=== PATIENT | female | born 1965 | race Caucasian/White ===

== ENCOUNTER → 2017-02-13 | Outpatient (CLI) | payer OTHER ==
[2017-02-13 07:02] LABS: EKG EKG PERFORMED
[2017-02-13 08:24] LABS: Anion Gap 14 mmol/L; Basophils # (A) 0.1 k/uL (0-0.2); Basophils % (A) 1 %; Blood Urea Nitrogen 14 mg/dL (7-17); CH 27.9; Carbon Dioxide 24 mmol/L (22-30); Chloride 102 mmol/L (98-107); Eosinophils # (A) 0.5 k/uL (0-0.7); Eosinophils % (A) 6 %; Glucose 171 mg/dL (74-99); HDW 2.36; Luc % (Auto) 1; Lymphocytes # (A) 2.1 k/uL (1.0-4.8); Lymphocytes % (A) 27 %; MCH 27.5 pg (25.0-35.0); MCHC 33.4 g/dL (31.0-37.0); MCV 82.4 fL (80.0-100.0); Mean Platelet Volume 6.2; Monocytes # (A) 0.3 k/uL (0-1.0); Monocytes % (A) 4 %; Neutrophils # (A) 4.7 k/uL (1.3-7.7); Neutrophils % (A) 61 %; Non-African American GFR(MDRD) >60 (>60 ml/min/1.73 sqM); Potassium 3.9 mmol/L (3.5-5.1); RBC 5.11 m/uL (3.80-5.40); RDW 13.9 % (11.5-15.5); Sodium 140 mmol/L (137-145); WBC 7.7 k/uL (3.8-10.6)
== END | disposition home or self-care (01) ==
LOC: LABPAT 06:34
PROVIDERS: ATTEND Obstetrics & Gynecology
DX: I10 Essential (primary) hypertension (principal); Z01.812 Encounter for preprocedural laboratory examination; E11.9 Type 2 diabetes mellitus without complications; D25.9 Leiomyoma of uterus, unspecified
CPT/HCPCS: 80051; 82565; 82947; 84520; 85025; 87086; 93005

== ENCOUNTER 2017-02-20 07:39 | Inpatient (IN) | payer OTHER ==
[2017-02-15 12:33] VITALS: BMI 36.1
--- NOTE | 2017-02-16 20:02 | HP ---
DATE OF ADMISSION: 02/20/2017 HISTORY: This is a 52-year-old 3 para 3 woman with an enlarged fibroid uterus. She was found to have an enlarged uterus on routine gynecologic examination. Pelvic ultrasound confirmed presence of an enlarged uterus measuring 16.6 x 12.2 x 9 cm with a 12 cm right fundal subserosal fibroid. She has had some mild irregular perimenopausal bleeding. Endometrial biopsy was performed and was negative. She is having symptoms of pelvic pressure and abdominal fullness and is requesting surgical management of her large fibroid uterus. ALLERGIES: NONE. MEDICATIONS: 1. Farxiga 10 mg daily. 2. Humalog daily. 3. Levemir 28 units daily. 4. Lipitor 40 mg daily. 5. Losartan/hydrochlorothiazide 50/12.5 mg daily. 6. Metformin 500 mg b.i.d. 7. Prilosec 20 mg daily. 8. Qvar 80 mcg inhaled. 9. Synthroid 125 mcg. 10. Vitamin D 5000 units. 11. Zoloft 150 mg. PAST MEDICAL HISTORY: 1. Asthma. 2. Type 2 diabetes. 3. Hypertension. 4. History of thyroid cancer in 1998. 5. History of left breast cancer in 1993. 6. History of right breast cancer in 1999. PAST SURGICAL HISTORY: 1. Appendectomy in 2011. 2. section x3 in 1985, 1987, 1988. 3. Total thyroidectomy in 1998. 4. Left breast lumpectomy, 1993. 5. Right breast mammotome biopsy in 1999. PAST EXCEL EXPERT HISTORY: She is 3 para 3 with a history of 3 term sections. She is perimenopausal. SOCIAL HISTORY: She is . Negative for tobacco, alcohol and drug use. FAMILY HISTORY: Significant for diabetes and heart disease. REVIEW OF SYSTEMS: Twelve-point review of systems negative except for that described in the HPI. PHYSICAL EXAM: VITAL SIGNS: Blood pressure 110/80, heart rate 73, weight 229 pounds, height 5 feet 5 inches. In general, this is a pleasant obese female in no apparent distress. HEENT exam is unremarkable, with no palpable thyromegaly or lymphadenopathy. LUNGS: Clear to auscultation bilaterally. HEART: Regular rate and rhythm with no detectable murmur. ABDOMEN: Obese. The uterus is palpable in the midline, approximately 18-week size. She has a midline vertical scar consistent with history of sections. The uterus is non-tender. On pelvic examination, she has normal female external genitalia without lesions or irritation. On bimanual examination, the uterus is irregular in shape and fills the pelvis. Approximately 16- to 18-week size. Adnexa are not palpable separate from this. Evaluation of the skin reveals no gross skin rashes, lesions or cyanosis. Neurologically she is grossly intact with no focal deficits. ASSESSMENT: This is a 52-year-old 3 para 3 woman with an enlarged fibroid uterus. She is scheduled to undergo total abdominal hysterectomy and bilateral oophorectomy. This procedure has been reviewed in detail with the patient in the office on more than one occasion. Risks of the procedure include but are not limited to bleeding, transfusion, infection, damage to bowel, bladder, ureters and/or other pelvic and abdominal structures. She understands this risks may be increased secondary to history of previous abdominal surgery as well as the enlarged size of the uterus. She also understands there may be risks associated with anesthesia, possible DVT, PE and/or . We will have medical management of her diabetes and high blood pressure while in the hospital. Consent was obtained. The patient was offered a second opinion, which was declined. She is scheduled for a total abdominal hysterectomy and bilateral salpingo-oophorectomy on 02/20/2017. JUJU
[~2017-02-20 07:39] MED LIST: DEXAMETHASONE SOD PHOSPHATE 10 MG/ML 1 ML VIAL IV ONE; HEPARIN SODIUM,PORCINE 5,000 UNIT/ML 1 ML VIAL SQ ONE; LACTATED RINGERS 1,000 ML IV SCH; MIDAZOLAM 2 MG/2 ML VIAL IV PRN; SCOPOLAMINE 1.5MG/72HR PATCH TRANSDERM ONE; ceFAZolin 2 GM in SODIUM CHLORIDE 0.9% 100 ML IVPB ONE
[2017-02-20 08:34] LABS: Glucose,Whole Blood 205 mg/dL (75-99)
[2017-02-20] MEDS ORDERED: LIDOCAINE 1% 20 ML VIAL (10MG/ML) FOR IV START INTRADERMA ONE (08:39)
[2017-02-20] MEDS: ONDANSETRON 4 MG/2 ML VIAL IVP ONE ×2 (08:41→11:55)
[2017-02-20] MEDS ORDERED: PHENYLEPHRINE-0.9% NACL SYG 1 MG/10 ML SYRINGE ONE (09:13)
[2017-02-20] MEDS ORDERED: HYDROmorphone (PF) 1 MG/ML ONE (09:13)
[2017-02-20] MEDS ORDERED: GLYCOPYRROLATE 0.2 MG/ML 2 ML VIAL ONE (09:13)
[2017-02-20] MEDS ORDERED: SUCCINYLCHOLINE CHLORIDE 100 MG/5 ML SYR IV ONE (09:13)
[2017-02-20] MEDS ORDERED: PROPOFOL 10 MG/ML 20 ML VIAL IV ONE (09:13)
[2017-02-20] MEDS ORDERED: fentaNYL (PF) 50 MCG/ML 2 ML AMP ONE (09:13)
[2017-02-20] MEDS ORDERED: ROCURONIUM BROMIDE 10 MG/ML 10 ML VIAL IV ONE (09:13)
[2017-02-20] MEDS ORDERED: MIDAZOLAM 2 MG/2 ML VIAL ONE (09:13)
[2017-02-20] MEDS ORDERED: LIDOCAINE 1% INJ 10MG/ML (20 ML MDV) ONE (09:13)
[2017-02-20] MEDS ORDERED: NEOSTIGMINE 1 MG/ML 10 ML VIAL ONE (09:13)
[2017-02-20] MEDS ORDERED: LACTATED RINGERS 1,000 ML IV ONE (10:22)
--- NOTE | 2017-02-20 11:17 | P.OP ---
Date of Procedure: 02/20/17 Preoperative Diagnosis: Enlarged fibroid uterus Postoperative Diagnosis: Same Procedure(s) Performed: Total abdominal hysterectomy and bilateral salpingo-oophorectomy Implants: Anesthesia: LOCA Surgeon: Sil Zaidi Water Trainer #1: Larissa Dial Estimated Blood Loss (ml): 400 IV fluids (ml): 1,600 Urine output (ml): 225 Pathology: other (Uterus, bilateral fallopian tubes and ovaries) Condition: stable Disposition: PACU Indications for Procedure: Enlarged fibroid uterus Operative Findings: Enlarged, approximately 16 weeks' size uterus with large posterior intramural fibroid. Normal-appearing bilateral fallopian tubes and ovaries. Scarring of bladder to the low uterine segment consistent with history of section Description of Procedure: After the patient was met in the preoperative holding area and she and her family's questions were answered, she seemed to the operating room her anesthetic was administered without incident. She was in positioned, prepped and draped in the dorsal supine positio. Gutierrez catheter was in place. A midline vertical skin incision was made following the pre-existing scar line. This was carried down to the underlying fascia with the Bovie electrocautery and sharply. The fascia was incised in the midline and extended inferiorly and superiorly. The rectus muscles were then bluntly and sharply dissected away in the midline. The peritoneum identified, tented up and entered sharply. The peritoneal incision was extended inferiorly and superiorly with excellent visualization the bladder. The upper abdomen was manually explored and no gross amount of palpable. The uterus was palpated and the above findings were noted. The self-retaining [place]den retractor was placed and the bowels were packed away with moist laparotomy sponges. The cornual pedicles were grasped and the uterus was elevated. The left round ligament was identified, elevated, clamped cut and suture ligated. The infundibulopelvic ligament was identified. A window was made in the peritoneum immediately proximal to the ovary. This was doubly clamped, cut and suture ligated. The anterior leaf of the broad ligament was entered and excised down to the level of the bladder. The scarring consistent with section was addressed sharply using the Metzenbaum scissors. Similarly the right round ligament was identified, tented up, clamped cut and suture ligated. The right anterior leaf of the broad ligament was also incised down to the level of the bladder flap which had previously been created. The scarring was addressed sharply and the bladder was advanced anteriorly bluntly. Similarly the right infundibular pelvic ligament was identified and a window was made immediately below this. The IP ligament was doubly clamped cut and suture ligated. The fundus of the uterus was then grasped with a double-tooth tenaculum and elevated out of the pelvis. The posterior leaves of the broad ligaments were excised and the uterine vasculature was skeletonized. Significant engorgement of the uterine vasculature was was noted on the left side in particular. Uterine vasculature was then clamped at a right angle bilaterally. These pedicles were then clamped on the cut and suture ligated. 0 Vicryl suture was utilized throughout the case unless otherwise indicated. The bladder was further advanced away from the anterior lower uterus. The cardinal ligaments were then clamped cut and suture ligated bilaterally down to the level of the uterosacral ligaments. The bulky nature of the uterus at this point was hindering visualization therefore the uterus was amputated at the low uterine segment. The cervical stump was grasped with [place] clamps and elevated. The base of the cervix was palpable. The bladder was carefully dissected away from the anterior portion of the cervix. The remaining cardinal ligament and uterosacral ligaments were clamped cut and suture ligated allowing for complete dilatation of the specimen at the apex of the vagina. This was removed. The vaginal cuff was then closed with 0 Vicryl suture in an interrupted and running fashion. The pelvis was then copiously suction irrigated. Hemostasis was noted along the vaginal cuff line. The round ligament and infundibulopelvic surgical sites were inspected and noted to be hemostatic. The self-retaining retractor was removed and all laparotomy sponges were removed from the abdomen. The omentum and bowel mesentery were inspected and noted to be hemostatic. The rectus muscles and peritoneal edges were inspected and noted to be hemostatic. The fascia was then closed in a running fashion with 0 PDS suture. The subcuticular tissue was inspected and reapproximated with Vicryl suture. The skin was then closed using krystina. All counts reported to me as correct by the operating room staff. Clear urine was noted at the completion of the procedure. The patient was awoken from anesthetic in good condition and transferred
[2017-02-20 11:58] LABS: Glucose,Whole Blood 227 mg/dL (75-99)
[2017-02-20] MEDS ORDERED: PROMETHAZINE INJ 25 MG/ML 1 ML VIAL IVPB ONE (12:02)
[2017-02-20] MEDS: HYDROmorphone 1 MG/ML 1 ML SYRINGE IVP PRN ×2 (12:07→12:31)
[2017-02-20] MEDS ORDERED: KETOROLAC 30 MG/ML 1 ML VIAL IVP ONE (12:18)
[2017-02-20] MEDS ORDERED: Acetaminophen-Codeine 300-30mg TAB PO PRN (12:21)
[2017-02-20] MEDS ORDERED: METOCLOPRAMIDE 5 MG/ML 2 ML VIAL IVP PRN (12:21)
[2017-02-20] MEDS ORDERED: ONDANSETRON 4 MG/2 ML VIAL IVP PRN (12:21)
[2017-02-20] MEDS ORDERED: IBUPROFEN 600 MG TAB PO PRN (12:21)
[2017-02-20] MEDS ORDERED: SIMETHICONE 80 MG CHEWABLE PO PRN (12:21)
[2017-02-20] MEDS ORDERED: diphenhydrAMINE 50 MG/ML 1 ML VIAL IVP PRN (12:21)
[2017-02-20] MEDS: INSULIN LISPRO (humaLOG) 300 UNIT/3 ML VIAL SQ SCH ×3 (13:33→21:30)
[2017-02-20] MEDS: LACTATED RINGERS 1,000 ML IV SCH ×2 (13:33→16:13)
[2017-02-20] MEDS: Acetaminophen-Codeine 300-30mg TAB PO PRN (14:56)
[2017-02-20] MEDS ORDERED: NALOXONE 0.4 MG/ML 1 ML VIAL IV PRN (15:57)
[2017-02-20] MEDS: HYDROmorphone PCA 5 MG/25 ML SYRINGE IV PRN ×2 (16:13→23:35)
[2017-02-20 17:03] LABS: Glucose,Whole Blood 185 mg/dL (75-99)
--- NOTE | 2017-02-20 18:06 | P.CONS ---
History of Present Illness - Reason for Consult Consult date: 02/20/17 management of DM - History of Present Illness This is a 52-year-old female with history of diabetes, hypertension, hypothyroidism was brought in to the hospital for a ALICIA/BSO. Patient is seen postop day 0. Patient had a large fibroid status post resection Patient today is seen at bedside. Appears to be still drowsy. Patient has a complex regimen of medications for diabetes control Patient's was at bedside and most of the history is obtained from. Patient apparently was doing well prior to the current admission Most of the history is obtained from chart review. Review of Systems All systems: negative (Noted in HPI) Past Medical History Past Medical History: Asthma, Cancer, Diabetes Mellitus, GERD/Reflux, Musculoskeletal Disorder, Thyroid Disorder Additional Past Medical History / Comment(s): ganglion cyst right foot that causes pain, hx. breast [id number] & 1997-surg. & radiation, thyroid cancer 1998 & 2012 History of Any Multi-Drug Resistant Organisms: None Reported Past Surgical History: Appendectomy, Breast Surgery, Hysterectomy Additional Past Surgical History / Comment(s): thyroidectomy & parathyroidectomy , bilateral breast lumpectomies, skin lesions removed, ALICIA/BSO Past Anesthesia/Blood Transfusion Reactions: Previous Problems w/ Anesthesia Additional Past Anesthesia/Blood Transfusion Reaction / Comm: slow to wake up Past Psychological History: Anxiety, Depression Smoking Status: Never smoker - Past Family History Mother Family Medical History: No Reported History Medications and Allergies Home Medications Medication Instructions Recorded Confirmed Type Acetaminophen [Tylenol Extra 500 mg PO BID 02/15/17 02/20/17 History Strength] Atorvastatin [Lipitor] 40 mg PO HS 02/15/17 02/20/17 History Calcium Carbonate [Calcium] 1,800 mg PO DAILY 02/15/17 02/20/17 History Cholecalciferol [Vitamin D3] 5,000 unit PO DAILY 02/15/17 02/20/17 History Cyanocobalamin (Vitamin B-12) 2,500 mcg PO DAILY 02/15/17 02/20/17 History [Vitamin B-12] Dapagliflozin Propanediol [Farxiga] 10 mg PO DAILY 02/15/17 02/20/17 History Ferrous Sulfate [Feosol] 325 mg PO DAILY 02/15/17 02/20/17 History INSULIN LISPRO (HumaLOG) [HumaLOG] 8 units SQ DAILY@1200,1730 07/05/17 07/10/17 History INSULIN LISPRO (HumaLOG) [HumaLOG] 10 units SQ -KT 02/15/17 02/20/17 History Insulin Detemir [Levemir] 28 unit SQ DAILY 02/15/17 02/20/17 History Multivit with Calcium,Iron,Min 1 tab PO DAILY 02/15/17 02/20/17 History [Women's Multivitamin] Omeprazole [PriLOSEC] 20 mg PO AC-BRKFST 02/15/17 02/20/17 History Sertraline HCl [Zoloft] 150 mg PO DAILY 02/15/17 02/20/17 History metFORMIN HCL [Glucophage] 500 mg PO BID 02/15/17 02/20/17 History Levothyroxine Sodium [Synthroid] 250 mcg PO DAILY 02/20/17 02/20/17 History Losartan/Hydrochlorothiazide 1 tab PO DAILY 02/20/17 02/20/17 History [Losartan-Hctz 50-12.5 mg Tab] Allergies Allergy/AdvReac Type Severity Reaction Status Date / Time No Known Allergies Allergy Verified 02/15/17 12:16 Physical Exam Vitals: Vital Signs Temp Pulse Pulse Resp BP BP Pulse Ox 02/20/17 16:39 98.1 F 83 16 137/70 94 L 02/20/17 15:39 80 145/75 94 L 02/20/17 14:39 74 138/80 93 L 02/20/17 14:09 70 133/73 93 L 02/20/17 13:39 68 130/71 95 02/20/17 13:23 71 125/69 96 02/20/17 13:08 73 118/71 96 02/20/17 12:53 97.6 F 65 16 111/63 95 02/20/17 12:20 62 16 126/68 96 02/20/17 12:05 63 16 137/71 97 02/20/17 11:50 62 16 142/70 97 02/20/17 11:41 64 16 147/73 96 02/20/17 11:24 97 F L 67 16 151/74 97 02/20/17 08:30 69 18 122/81 97 02/20/17 08:16 97.9 F 77 18 131/87 96 Intake and Output 02/20/17 02/20/17 02/20/17 06:59 14:59 22:59 Intake Total 2460 Output Total 950 Balance 1510 Intake: IV 2400 Oral 60 Output: Urine 550 Estimated Blood Loss 400 Other: Voiding Method Indwelling Catheter Weight 101.605 kg Patient Weight 02/21/17 06:59 Weight 101.605 kg Physical exam Gen. appearance oriented 3 in no distress Neck is supple no JVD Lungs good air entry clear to auscultation no rhonchi or wheezing Heart S1-S2 heard regular rate and rhythm no murmurs appreciated Abdomen surgical dressing noted appropriate tender to palpation Neurologically cranial nerves II-12 grossly intact no focal motor or sensory deficits noted Skin no abnormalities appreciated Results Labs: Abnormal Lab Results - Last 24 Hours (Table) 02/20/17 02/20/17 02/20/17 Range/Units 08:26 11:48 16:57 POC Glucose (mg/dL) 205 H 227 H 185 H (75-99) mg/dL Assessment and Plan Plan: #1 uterine fibroids status post surgical resection #2 diabetes mellitus type 2. #3 hypertension #4 dyslipidemia #5 hypothyroidism Plan Patient's antihypertensive medications will be restarted tomorrow Hold off on using farxiga, as it does cause osmotic diuresis. We'll decrease the dose of Levemir to 20 units till patient's oral intake is back to her baseline. Hold off on metformin as patient is postsurgical NovoLog sliding scale can be used to address additional episodes of hyper glycemia Thank you for the consultation we'll follow the patient along with you
[2017-02-20 21:16] LABS: Glucose,Whole Blood 159 mg/dL (75-99)
[2017-02-20] MEDS: KETOROLAC 30 MG/ML 1 ML VIAL IVP PRN (21:27)
[2017-02-20] MEDS: SENNOSIDES-DOCUSATE SODIUM 1 EACH TAB PO SCH (21:28)
[2017-02-20] MEDS: INSULIN DETEMIR 100 UNIT/ML 10 ML VIAL SQ SCH (21:29)
[2017-02-21] MEDS: LACTATED RINGERS 1,000 ML IV SCH ×2 (01:48→18:21)
[2017-02-21] MEDS: PANTOPRAZOLE 40 MG TABLET PO SCH (06:42)
[2017-02-21 06:52] LABS: Basophils % (A) 0 %; CH 27.2; CHCM 32.8; Eosinophils # (A) 0.1 k/uL (0-0.7); Eosinophils % (A) 2 %; HCT 37.3 % (34.0-46.0); HDW 2.24; HGB 12.5 gm/dL (11.4-16.0); Luc # (Auto) 0.14; Luc % (Auto) 2; Lymphocytes # (A) 1.8 k/uL (1.0-4.8); Lymphocytes % (A) 20 %; MCH 27.9 pg (25.0-35.0); MCHC 33.5 g/dL (31.0-37.0); MCV 83.2 fL (80.0-100.0); Mean Platelet Volume 6.2; Monocytes # (A) 0.5 k/uL (0-1.0); Monocytes % (A) 5 %; Neutrophils # (A) 6.4 k/uL (1.3-7.7); Neutrophils % (A) 71 %; RBC 4.48 m/uL (3.80-5.40); RDW 13.5 % (11.5-15.5); WBC 9.1 k/uL (3.8-10.6); WBC (Perox) 9.77
[2017-02-21] MEDS: LEVOTHYROXINE 112 MCG TAB PO SCH (07:03)
[2017-02-21] MEDS ORDERED: LEVOTHYROXINE 125 MCG TAB PO SCH (07:30)
[2017-02-21 07:52] LABS: Glucose,Whole Blood 142 mg/dL (75-99)
--- NOTE | 2017-02-21 08:12 | P.PN ---
Subjective Principal diagnosis: Fibroid uterus Pain very well-controlled throughout the night with DIRECTOR OF STRATEGIC SOURCING device. She is passing gas. She is requesting regular food. Has not yet ambulated. Objective - Vital Signs Vital signs: Vital Signs Temp 97.9 F 02/20/17 23:43 Pulse 71 02/20/17 23:43 Resp 16 02/20/17 23:43 BP 103/65 02/20/17 23:43 Pulse Ox 95 02/20/17 23:43 Intake & Output 02/20/17 02/21/17 02/21/17 18:59 06:59 18:59 Intake Total 2460 Output Total 950 500 Balance 1510 -500 Weight 101.605 kg Intake: IV 2400 Oral 60 Output: Urine 550 500 Estimated Blood Loss 400 Other: Voiding Method Indwelling Catheter Indwelling Catheter - Exam comfortable appearing female in no acute distress. Abdomen obese and soft. Nontender with no guarding. Surgical dressing removed. Intact vertical midline incision with krystina. No active vaginal bleeding. Pneumatic compression device in place lower extremities. - Labs CBC & Chem 7: 02/21/17 06:25 Labs: Abnormal Lab Results - Last 24 Hours (Table) 02/20/17 02/20/17 02/20/17 Range/Units 08:26 11:48 16:57 POC Glucose (mg/dL) 205 H 227 H 185 H (75-99) mg/dL 02/20/17 02/21/17 Range/Units 21:07 07:49 POC Glucose (mg/dL) 159 H 142 H (75-99) mg/dL Assessment and Plan (1) Fibroid uterus Narrative/Plan: Postop day 1 status post total abdominal hysterectomy and bilateral salpingo- oophorectomy. Findings in surgery were reviewed with the patient and her this morning. Her postop day 1 hemoglobin is stable. The incision appears well healing. Plan today is to advance to a general diet and discontinue DIRECTOR OF STRATEGIC SOURCING device. Transition to oral pain medications. Active ambulation in the hallway is strongly encouraged. Status: Acute (2) Diabetes Narrative/Plan: Appreciate medical team management of diabetes. Regular diet will be resumed today. Defer to their recommendations for reinstitution of home medications. Status: Acute (3) Hypertension Status: Acute (4) Hypothyroid Status: Acute (5) Hyperlipidemia Status: Acute Time with Patient: Less than 30
[2017-02-21] MEDS: KETOROLAC 30 MG/ML 1 ML VIAL IVP PRN ×3 (08:56→21:35)
[2017-02-21] MEDS: Acetaminophen-Codeine 300-30mg TAB PO PRN ×3 (08:57→21:36)
[2017-02-21] MEDS: SERTRALINE 50 MG TAB PO SCH (08:57)
[2017-02-21] MEDS: INSULIN LISPRO (humaLOG) 300 UNIT/3 ML VIAL SQ SCH ×4 (08:58→21:42)
[2017-02-21] MEDS: SENNOSIDES-DOCUSATE SODIUM 1 EACH TAB PO SCH ×2 (08:58→21:34)
[2017-02-21] MEDS: LOSARTAN-HCTZ 50-12.5 MG 1 EACH TAB PO SCH (08:59)
[2017-02-21 12:48] LABS: Glucose,Whole Blood 147 mg/dL (75-99)
--- NOTE | 2017-02-21 16:12 | P.PN ---
Subjective This is a 52-year-old female with history of diabetes, hypertension, hypothyroidism was brought in to the hospital for a ALICIA/BSO. Patient is seen postop day 0. Patient had a large fibroid status post resection Patient today is seen at bedside. Appears to be still drowsy. Patient has a complex regimen of medications for diabetes control Patient's was at bedside and most of the history is obtained from. Patient apparently was doing well prior to the current admission Most of the history is obtained from chart review. 02/21/2017 Patient is postop day 1 from a total abdominal hysterectomy/bilateral salpingo- oophorectomy Patient is passing flatus states to be tolerating diet Abdominal pain is well tolerated No other overnight events reported Objective - Vital Signs Vital signs: Vital Signs Temp 99.7 F H 02/21/17 12:12 Pulse 76 02/21/17 12:12 Resp 20 02/21/17 12:12 BP 118/69 02/21/17 12:12 Pulse Ox 92 L 02/21/17 12:12 Intake & Output 02/20/17 02/21/17 02/21/17 18:59 06:59 18:59 Intake Total 2460 550 Output Total 803 542 0093 Balance 1510 -500 -675 Weight 101.605 kg Intake: IV 2400 Oral 60 550 Output: Urine 093 816 [id number] Uretheral (Gutierrez) 425 Estimated Blood Loss 400 Other: Voiding Method Indwelling Catheter Indwelling Catheter Toilet # Voids 1 - Exam Physical exam Gen. appearance oriented 3 in no distress Neck is supple no JVD Lungs good air entry clear to auscultation no rhonchi or wheezing Heart S1-S2 heard regular rate and rhythm no murmurs appreciated Abdomen appropriate tender to palpation Neurologically cranial nerves II-12 grossly intact no focal motor or sensory deficits noted Skin no abnormalities appreciated - Labs CBC & Chem 7: 02/21/17 06:25 Labs: Abnormal Lab Results - Last 24 Hours (Table) 02/20/17 02/20/17 02/21/17 Range/Units 16:57 21:07 06:25 POC Glucose (mg/dL) 185 H 159 H (75-99) mg/dL Hemoglobin A1c 8.0 H (4.2-6.1) % 02/21/17 02/21/17 Range/Units 07:49 12:44 POC Glucose (mg/dL) 142 H 147 H (75-99) mg/dL Hemoglobin A1c (4.2-6.1) % Assessment and Plan Plan: #1 uterine fibroids status post surgical resection #2 diabetes mellitus type 2. #3 hypertension #4 dyslipidemia #5 hypothyroidism Plan Restart metformin increase Levemir to 28 units. NovoLog sliding scale Hold farxiga till the day after discharge Glucose levels appear to be appropriate
[2017-02-21 18:05] LABS: Glucose,Whole Blood 189 mg/dL (75-99)
[2017-02-21 21:11] LABS: Glucose,Whole Blood 284 mg/dL (75-99)
[2017-02-21] MEDS: metFORMIN 500 MG TAB PO SCH (21:35)
[2017-02-21] MEDS: INSULIN DETEMIR 100 UNIT/ML 10 ML VIAL SQ SCH (21:41)
[2017-02-22] MEDS: Acetaminophen-Codeine 300-30mg TAB PO PRN (03:39)
[2017-02-22] MEDS: KETOROLAC 30 MG/ML 1 ML VIAL IVP PRN (03:40)
[2017-02-22] MEDS: PANTOPRAZOLE 40 MG TABLET PO SCH (06:10)
[2017-02-22] MEDS: LEVOTHYROXINE 112 MCG TAB PO SCH (06:10)
[2017-02-22] MEDS: LACTATED RINGERS 1,000 ML IV SCH (06:40)
--- NOTE | 2017-02-22 07:53 | P.DS ---
Providers Date of admission: 02/20/17 07:39 Expected date of discharge: 02/22/17 Attending physician: Sil Zaidi Consults: 02/20/17 13:26 Consult Physician Routine Consulting Provider: Butch Campbell Consult Reason/Comments: diabetes, medical management Do you want consulting provider notified?: Already Contacted Primary care physician: Gabriella Tee - Discharge Diagnosis(es) (1) Fibroid uterus Current Visit: Yes Status: Acute (2) Diabetes Current Visit: Yes Status: Acute (3) Hypertension Current Visit: Yes Status: Acute (4) Hypothyroid Current Visit: Yes Status: Acute (5) Hyperlipidemia Current Visit: Yes Status: Acute Hospital Course: This 52 year old 3 para 3 woman who had an enlarged fibroid uterus. She was admitted and underwent an unremarkable total abdominal hysterectomy and bilateral salpingo-oophorectomy on 02/20/2017. Her postoperative course has been unremarkable. By postoperative day #1 her pain was well-controlled with a BILLBOARD ERECTOR device. This was transitioned to oral pain medications. Her blood sugars were managed with insulin sliding scale and her home diabetic medications were reintroduced. She was able to ambulate and voided without difficulty with the Gutierrez catheter removed. By postoperative day #2 the patient strongly desired discharge home. Her incision appeared to be somewhat ecchymotic however well healing with intact krystina. She had scant vaginal bleeding. Her vital signs were stable and her blood sugars were well controlled on a general diet. She was therefore discharged home with routine instructions for care and follow-up. Procedures: Total abdominal hysterectomy and bilateral salpingectomy oophorectomy Patient Condition at Discharge: Good Plan - Discharge Summary New Discharge Prescriptions: New Acetaminophen-Codeine 300-30mg [Tylenol w/codeine #3] 2 each PO Q6HR PRN #30 tab PRN Reason: Severe Pain Ibuprofen [Motrin] 600 mg PO Q6HR PRN tab PRN Reason: Mild Discomfort No Action Ferrous Sulfate [Feosol] 325 mg PO DAILY Cholecalciferol [Vitamin D3] 5,000 unit PO DAILY Insulin Detemir [Levemir] 28 unit SQ DAILY INSULIN LISPRO (HumaLOG) [HumaLOG] 10 units SQ AC-BRKFST INSULIN LISPRO (HumaLOG) [HumaLOG] 8 units SQ DAILY@1200,1730 metFORMIN HCL [Glucophage] 500 mg PO BID Sertraline HCl [Zoloft] 150 mg PO DAILY Omeprazole [PriLOSEC] [address] [facility] Atorvastatin [Lipitor] 40 mg PO HS Multivit with Calcium,Iron,Min [Women's Multivitamin] 1 tab PO DAILY Dapagliflozin Propanediol [Farxiga] 10 mg PO DAILY Cyanocobalamin (Vitamin B-12) [Vitamin B-12] 2,500 mcg PO DAILY Calcium Carbonate [Calcium] 1,800 mg PO DAILY Acetaminophen [Tylenol Extra Strength] 500 mg PO BID Levothyroxine Sodium [Synthroid] 224 mcg PO DAILY Losartan/Hydrochlorothiazide [Losartan-Hctz 50-12.5 mg Tab] 1 tab PO DAILY Discharge Medication List Acetaminophen [Tylenol Extra Strength] 500 mg PO BID 02/15/17 [History] Atorvastatin [Lipitor] 40 mg PO HS 02/15/17 [History] Calcium Carbonate [Calcium] 1,800 mg PO DAILY 02/15/17 [History] Cholecalciferol [Vitamin D3] 5,000 unit PO DAILY 02/15/17 [History] Cyanocobalamin (Vitamin B-12) [Vitamin B-12] 2,500 mcg PO DAILY 02/15/17 [ History] Dapagliflozin Propanediol [Farxiga] 10 mg PO DAILY 02/15/17 [History] Ferrous Sulfate [Feosol] 325 mg PO DAILY 02/15/17 [History] INSULIN LISPRO (HumaLOG) [HumaLOG] 8 units SQ DAILY@1200,1730 02/15/17 [History] INSULIN LISPRO (HumaLOG) [HumaLOG] [address] [facility] 02/15/17 [History] Insulin Detemir [Levemir] 28 unit SQ DAILY 02/15/17 [History] Multivit with Calcium,Iron,Min [Women's Multivitamin] 1 tab PO DAILY 02/15/17 [ History] Omeprazole [PriLOSEC] 20 mg PO -KT 02/15/17 [History] Sertraline HCl [Zoloft] 150 mg PO DAILY 02/15/17 [History] metFORMIN HCL [Glucophage] 500 mg PO BID 02/15/17 [History] Levothyroxine Sodium [Synthroid] 224 mcg PO DAILY 02/20/17 [History] Losartan/Hydrochlorothiazide [Losartan-Hctz 50-12.5 mg Tab] 1 tab PO DAILY 02/20 [History] Acetaminophen-Codeine 300-30mg [Tylenol w/codeine #3] 2 each PO Q6HR PRN #30 tab 02/22/17 [Rx] Ibuprofen [Motrin] 600 mg PO Q6HR PRN tab 02/22/17 [Rx] Follow up Appointment(s)/Referral(s): Sil Zaidi MD [STAFF PHYSICIAN] - 02/27/17 (Staple Removal) Activity/Diet/Wound Care/Special Instructions: Follow-up in the office on 02/27/2017 for staple removal. Resume all home medications but hold farxiga until 02/24/2017. May use [id number] ibuprofen in addition to prescription pain medications for pain. No heavy lifting greater than 10 pounds. No driving 2 weeks. Nothing in the vagina 6 weeks. Call the office if any concerning signs or symptoms including heavy vaginal bleeding, severe abdominal pain, inability to void, redness or foul drainage from the incision, redness or swelling of the lower extremities. Discharge Disposition: HOME SELF-CARE
[2017-02-22 08:09] LABS: Glucose,Whole Blood 171 mg/dL (75-99)
[2017-02-22] MEDS: SENNOSIDES-DOCUSATE SODIUM 1 EACH TAB PO SCH (08:26)
[2017-02-22] MEDS: SERTRALINE 50 MG TAB PO SCH (08:27)
[2017-02-22] MEDS: LOSARTAN-HCTZ 50-12.5 MG 1 EACH TAB PO SCH (08:27)
[2017-02-22] MEDS: metFORMIN 500 MG TAB PO SCH (08:27)
[2017-02-22] MEDS: INSULIN LISPRO (humaLOG) 300 UNIT/3 ML VIAL SQ SCH ×2 (08:28→12:39)
[2017-02-22 11:06] VITALS: BP 125/71; PULSE 69; RESP 16; TEMP 97.8
[2017-02-22 12:21] LABS: Glucose,Whole Blood 214 mg/dL (75-99)
--- NOTE | 2017-02-22 16:42 | P.PN ---
Subjective This is a 52-year-old female with history of diabetes, hypertension, hypothyroidism was brought in to the hospital for a ALICIA/BSO. Patient is seen postop day 0. Patient had a large fibroid status post resection Patient today is seen at bedside. Appears to be still drowsy. Patient has a complex regimen of medications for diabetes control Patient's was at bedside and most of the history is obtained from. Patient apparently was doing well prior to the current admission Most of the history is obtained from chart review. 02/21/2017 Patient is postop day 1 from a total abdominal hysterectomy/bilateral salpingo- oophorectomy Patient is passing flatus states to be tolerating diet Abdominal pain is well tolerated No other overnight events reported 02/22/2017 Patient is doing well Isolated elevations of serum glucose levels Objective - Vital Signs Vital signs: Vital Signs Temp 97.8 F 02/22/17 07:55 Pulse 69 02/22/17 07:55 Resp 16 02/22/17 07:55 BP 125/71 02/22/17 07:55 Pulse Ox 95 02/22/17 07:55 Intake & Output 02/21/17 02/22/17 02/22/17 18:59 06:59 18:59 Intake Total 550 600 Output Total 1825 Balance -1275 600 Intake: Oral 550 600 Output: Urine 1825 Uretheral (Gutierrez) 425 Other: Voiding Method Toilet Toilet Toilet # Voids 1 1 - Exam Physical exam Gen. appearance oriented 3 in no distress Neck is supple no JVD Lungs good air entry clear to auscultation no rhonchi or wheezing Heart S1-S2 heard regular rate and rhythm no murmurs appreciated Abdomen appropriate tender to palpation Neurologically cranial nerves II-12 grossly intact no focal motor or sensory deficits noted Skin no abnormalities appreciated - Labs CBC & Chem 7: 02/21/17 06:25 Labs: Abnormal Lab Results - Last 24 Hours (Table) 02/21/17 02/21/17 02/22/17 Range/Units 17:59 20:55 07:49 POC Glucose (mg/dL) 189 H 284 H 171 H (75-99) mg/dL 02/22/17 Range/Units 12:17 POC Glucose (mg/dL) 214 H (75-99) mg/dL Assessment and Plan Plan: #1 uterine fibroids status post surgical resection #2 diabetes mellitus type 2. #3 hypertension #4 dyslipidemia #5 hypothyroidism Plan Plan insulin regimen to be started including metformin Hold till Monday did discuss isolated elevations of serum glucose levels during this period however this is being done for comfort
== END 2017-02-22 13:06 | disposition home or self-care (01) | DRG 743 ==
LOC: 2ORWHC 07:39 → 6PED 11:06
PROVIDERS: ADMIT Obstetrics & Gynecology; ATTEND Obstetrics & Gynecology
PROC: 0UTC0ZZ Resection of Cervix, Open Approach (ICD-10-PCS; 2017-02-20)
PROC: 0UT20ZZ Resection of Bilateral Ovaries, Open Approach (ICD-10-PCS; 2017-02-20)
PROC: 0UT70ZZ Resection of Bilateral Fallopian Tubes, Open Approach (ICD-10-PCS; 2017-02-20)
PROC: 0UT90ZZ Resection of Uterus, Open Approach (ICD-10-PCS; principal; 2017-02-20 09:00)
DX: D25.1 Intramural leiomyoma of uterus (principal); I10 Essential (primary) hypertension; N92.5 Other specified irregular menstruation; E89.0 Postprocedural hypothyroidism; E89.2 Postprocedural hypoparathyroidism; E11.9 Type 2 diabetes mellitus without complications; E78.5 Hyperlipidemia, unspecified; K21.9 Gastro-esophageal reflux disease without esophagitis; J45.909 Unspecified asthma, uncomplicated; F41.9 Anxiety disorder, unspecified; F32.9 Major depressive disorder, single episode, unspecified; E66.9 Obesity, unspecified; Z82.49 Family history of ischemic heart disease and other diseases of the circulatory system; Z90.49 Acquired absence of other specified parts of digestive tract; Z83.3 Family history of diabetes mellitus; Z79.4 Long term (current) use of insulin; Z79.899 Other long term (current) drug therapy; Z85.3 Personal history of malignant neoplasm of breast; Z90.12 Acquired absence of left breast and nipple; Z85.850 Personal history of malignant neoplasm of thyroid; Z79.51 Long term (current) use of inhaled steroids; Z92.3 Personal history of irradiation; Z78.0 Asymptomatic menopausal state; Z87.39 Personal history of other diseases of the musculoskeletal system and connective tissue; Z86.69 Personal history of other diseases of the nervous system and sense organs; Z98.51 Tubal ligation status
CPT/HCPCS: 81025; 83036; 85025; 86850; 86900; 86901; 88307

== ENCOUNTER 2025-02-17 04:51 | Inpatient (IN) | payer BC, OTHER ==
[2025-02-17 05:30] LABS: Basophils # (A) 0.06 10*3/uL (0.00-0.10); Basophils % (A) 0.8 %; Eosinophils # (A) 0.30 10*3/uL (0.04-0.35); Eosinophils % (A) 3.8 %; HCT 37.4 % (37.2-46.3); HGB 12.7 g/dL (12.0-15.0); Lymphocytes # (A) 2.04 10*3/uL (0.90-5.00); Lymphocytes % (A) 25.8 %; MCH 28.3 pg (27.0-32.0); MCHC 34.0 g/dL (32.0-37.0); MCV 83.5 fL (80.0-97.0); Monocytes # (A) 0.54 10*3/uL (0.20-1.00); Monocytes % (A) 6.8 %; Neutrophils # (A) 4.93 10*3/uL (1.80-7.70); Neutrophils % (A) 62.4 %; Platelet Count 232 10*3/uL (140-440); RBC 4.48 10*6/uL (4.10-5.20); RDW 12.7 % (11.5-14.5); WBC 7.90 10*3/uL (4.50-10.00)
[2025-02-17 05:44] LABS: INR 0.9 (<1.2); Partial Thromboplastin Time 22.5 sec (22.0-30.0); Prothrombin Time 10.2 sec (10.0-12.5)
[2025-02-17 05:50] LABS: ALT 27 U/L (4-34); AST 29 U/L (14-36); African American GFR (CKD) >90 (>60 ml/min/1.73 sqM); Albumin 4.3 g/dL (3.5-5.0); Alkaline Phosphatase 62 U/L (38-126); Anion Gap 15 mmol/L; Blood Urea Nitrogen 23 mg/dL (7-17); Calcium 8.8 mg/dL (8.4-10.2); Carbon Dioxide 23 mmol/L (22-30); Chloride 102 mmol/L (98-107); Creatine Kinase 98 U/L (30-135); Glucose 191 mg/dL (74-99); Non-African American GFR(CKD) 87 (>60 ml/min/1.73 sqM); Potassium 4.4 mmol/L (3.5-5.1); Sodium 140 mmol/L (137-145); Total Protein 7.0 g/dL (6.3-8.2)
--- NOTE | 2025-02-17 05:57 | XR ---
EXAMINATION TYPE: XR chest 2V DATE OF EXAM: 02/17/2025 CLINICAL INDICATION: Female, 60 years old with history of altered mental status, TECHNIQUE: Frontal and lateral views of the chest are obtained. COMPARISON: None FINDINGS: There is no focal air space opacity, pleural effusion, or pneumothorax seen. The cardiac silhouette size is within normal limits. Bridging osteophytes in the thoracic spine are seen. IMPRESSION: No acute cardiopulmonary process. [facility], , 02/17/2025 5:55 AM
--- NOTE | 2025-02-17 06:00 | CT ---
EXAMINATION TYPE: CT brain wo con DATE OF EXAM: 02/17/2025 COMPARISON: NONE CLINICAL INDICATION: Female, 60 years old with history of Neuro deficit, acute, stroke suspected, ams , stroke suspected TECHNIQUE: CT scan of the head is performed without contrast. CT DLP: 1215.4 mGycm. Automated Exposure Control for Dose Reduction was Utilized. FINDINGS: There is no acute intracranial hemorrhage or midline shift identified. Ventricles and sul ci are within normal limits in size for patient's age. Vague areas of low attenuation in the frontal and parietal lobes bilaterally are seen. The globes are intact and the visualized sinuses are clear . IMPRESSION: No acute intracranial hemorrhage or midline shift. There is moderate nonspecific white matter changes which favor product of chronic small vessel ischemic change in patient this age. Other etiologies including more acute/subacute stroke not entirely excluded without prior comparison. Cons ider MRI follow-up. [facility], , 02/17/2025 5:58 AM
--- NOTE | 2025-02-17 06:39 | ED ---
General Adult HPI - General Source: patient, RN notes reviewed Mode of arrival: wheelchair Limitations: no limitations <Gregoria Lopez - Last Filed: 02/17/25 08:56> <Brendan Young - Last Filed: 02/28/25 19:51> - General Chief complaint: Neuro Symptoms/Deficit Stated complaint: Weakness, Disoriented Time Seen by Provider: 02/17/25 05:08 - History of Present Illness Initial comments: This is a 60-year-old female with history of T2DM, hypertension, hyperlipidemia presenting to the emergency department with multiple complaints. Patient's main concern is that yesterday afternoon after spending time with her grandchildren to 1430 she began to not feel well and felt like she had decreased strength in the left side of her body. She reports that through the night she had body cramps of her bilateral lower extremities. She also reports that she has been having intermittent chest tightness over the past 3 to 4 days that is nonradiating with no precipitating or modifying factors. (Gregoria Lopez) - Related Data Home Medications Medication Instructions Recorded Confirmed Acetaminophen [Tylenol Extra 1,000 mg PO Q6H PRN 02/15/17 02/17/25 Strength] Dapagliflozin Propanediol [Farxiga] 10 mg PO DAILY 02/15/17 02/17/25 Sertraline HCl [Zoloft] 200 mg PO HS 02/15/17 02/17/25 metFORMIN HCL [Glucophage] 500 mg PO BID 02/15/17 02/17/25 ALPRAZolam [Xanax] 0.5 mg PO BID PRN 02/17/25 02/17/25 Calcium W/Vitamin D3 1800mg 1 tab PO DAILY 02/17/25 02/17/25 Cetirizine HCl [Zyrtec] 10 mg PO DAILY 02/17/25 02/17/25 Insulin Degludec [Tresiba 32 units SQ DAILY 02/17/25 02/17/25 Flextouch U-200 Pen] Levothyroxine Sodium [Synthroid] 175 mcg PO DAILY 02/17/25 02/17/25 Losartan/Hydrochlorothiazide 1 tab PO DAILY 02/17/25 02/17/25 [Losartan-Hctz 100-25 mg Tab] Meloxicam [Mobic] 15 mg PO DAILY 02/17/25 02/17/25 Rosuvastatin Calcium [Crestor] 40 mg PO DAILY 02/17/25 02/17/25 Semaglutide [Ozempic] 2 mg SQ MO 02/17/25 02/17/25 traZODone HCL [Desyrel] 100 mg PO HS 02/17/25 02/17/25 Allergies Allergy/AdvReac Type Severity Reaction Status Date / Time No Known Allergies Allergy Verified 02/17/25 07:57 Review of Systems ROS Other: All systems not noted in ROS Statement are negative. <Gregoria Lopez - Last Filed: 02/17/25 08:56> ROS Other: All systems not noted in ROS Statement are negative. <Brendan Young - Last Filed: 02/28/25 19:51> ROS Statement: Those systems with pertinent positive or pertinent negative responses have been documented in the HPI. Past Medical History Past Medical History: Asthma, Cancer, Diabetes Mellitus, GERD/Reflux, Musculoskeletal Disorder, Thyroid Disorder Additional Past Medical History / Comment(s): ganglion cyst right foot that causes pain, hx. breast [id number] & 1997-surg. & radiation, thyroid cancer 1998 & 2012 covid 01/2025 History of Any Multi-Drug Resistant Organisms: None Reported Past Surgical History: Appendectomy, Breast Surgery, Hysterectomy Additional Past Surgical History / Comment(s): thyroidectomy & parathyroidectomy, bilateral breast lumpectomies, skin lesions removed, ALICIA/BSO Past Anesthesia/Blood Transfusion Reactions: Previous Problems w/ Anesthesia Additional Past Anesthesia/Blood Transfusion Reaction / Comment(s): slow to wake up Past Psychological History: Anxiety, Depression Smoking Status: Never smoker Past Alcohol Use History: None Reported Past Drug Use History: None Reported - Past Family History Mother Family Medical History: No Reported History <Gregoria Lopez - Last Filed: 02/17/25 08:56> General Exam Limitations: no limitations Neck exam: Present: normal inspection. Absent: tenderness, meningismus, lymphadenopathy Respiratory exam: Present: normal lung sounds bilaterally. Absent: respiratory distress, wheezes, rales, rhonchi, stridor Cardiovascular Exam: Present: regular rate, normal rhythm, normal heart sounds. Absent: systolic murmur, diastolic murmur, rubs, gallop, clicks GI/Abdominal exam: Present: soft, normal bowel sounds. Absent: distended, tenderness, guarding, rebound, rigid Extremities exam: Present: normal inspection, full ROM, normal capillary refill. Absent: tenderness, pedal edema, joint swelling, calf tenderness Neurological exam: Present: alert. Absent: altered Expanded Neurological exam: Absent: inattentive Patient oriented to: Present: person, place, time Speech: Present: fluid speech Cranial nerves: EOM's Intact: Normal, Facial Sensation: Normal Cerebellar function: Finger to Nose: Normal, Heel to [place]: Normal, Romberg: Normal Motor strength exam: RUE: 5, LUE: 5, RLE: 5, LLE: 5 Eye Response: (4) open spontaneously Motor Response: (6) obeys commands Verbal Response: (5) oriented Psychiatric exam: Present: normal affect, normal mood <Gregoria Lopez - Last Filed: 02/17/25 08:56> Course Vital Signs 02/17/25 02/17/25 02/17/25 04:53 06:01 06:31 Temperature 97.9 F Pulse Rate 74 67 66 Respiratory 16 18 17 Rate Blood Pressure 121/83 138/73 139/70 O2 Sat by Pulse 97 97 97 Oximetry 02/17/25 02/17/25 02/17/25 06:46 08:40 12:01 Temperature Pulse Rate 66 65 74 Respiratory 18 16 Rate Blood Pressure 139/70 128/73 121/70 O2 Sat by Pulse 97 100 98 Oximetry 02/17/25 02/17/25 02/17/25 15:17 18:25 19:36 Temperature 97.8 F Pulse Rate 82 79 84 Respiratory 18 18 18 Rate Blood Pressure 119/51 119/73 110/69 O2 Sat by Pulse 98 98 98 Oximetry 02/17/25 02/18/25 02/18/25 22:00 00:00 07:04 Temperature Pulse Rate 81 75 Respiratory 16 18 Rate Blood Pressure 110/66 118/87 95/45 O2 Sat by Pulse 96 100 Oximetry 02/18/25 02/18/25 08:20 13:01 Temperature 98.1 F 98.2 F Pulse Rate 81 80 Respiratory 18 16 Rate Blood Pressure 115/68 120/71 O2 Sat by Pulse 98 97 Oximetry Medical Decision Making - Lab Data Result diagrams: 02/17/25 05:19 02/17/25 05:19 <Gregoria Lopez - Last Filed: 02/17/25 08:56> - Lab Data Result diagrams: 02/21/25 05:17 02/21/25 05:17 <Brendan Young - Last Filed: 02/28/25 19:51> - Medical Decision Making Was pt. sent in by a medical professional or institution ([facility], [facility], urgent care, hospital, or fdc...) When possible be specific @ -No Did you speak to anyone other than the patient for history (EMS, parent, family, police, friend...)? What history was obtained from this source @ -No Did you review nursing and triage notes (agree or disagree)? Why? @ -I reviewed and agree with nursing and triage notes Were old charts reviewed (outside hosp., previous admission, EMS record, old EKG, old radiological studies, urgent care reports/EKG's, fdc records)? Report findings @ -No old charts were reviewed Differential Diagnosis (chest pain, altered mental status, abdominal pain women, abdominal pain men, vaginal bleeding, weakness, fever, dyspnea, syncope, headache, dizziness, GI bleed, back pain, seizure, CVA, palpatations, mental health, musculoskeletal)? @ -Differential CVA Ischemic stroke, hemorrhagic stroke, brain tumor, atypical migraine, Wernicke's encephalopathy, seizure, multiple sclerosis, meningitis, encephalitis, hypoglycemia, Guillain-Boo, electrolytes disturbance, myasthenia gravis.... This is not meant to be an all-inclusive list EKG interpreted by me (3pts min.). @ -Completed at 507 sinus rhythm with a ventricular to 71, PA interval 180, QRS 103, QT 395, QTc 418. X-rays interpreted by me (1pt min.). @ -Chest x-ray no acute cardiopulmonary process CT interpreted by me (1pt min.). @ -CT of the brain without contrast no acute intracranial process with nonspecific white matter changes. U/S interpreted by me (1pt. min.). @ -None done What testing was considered but not performed or refused? (CT, X-rays, U/S, labs)? Why? @ -None What meds were considered but not given or refused? Why? @ -None Did you discuss the management of the patient with other professionals (professionals i.e. , [facility], [facility], lab, RT, psych nurse, director of social work, neuropsychology medical consultant, teacher, police booking officer, showcase maker)? Give summary @ -I spoke with on-call staffing specialist, Dr. Curry, who agreed with the patient with consults to cardiology and neurology for further evaluation. Was smoking cessation discussed for >3mins.? @ -No Was critical care preformed (if so, how long)? @ -No Were there social determinants of health that impacted care today? How? (Homelessness, low income, unemployed, alcoholism, drug addiction, transportation, low edu. Level, literacy, decrease access to med. care, group home, rehab)? @ -No Was there de-escalation of care discussed even if they declined (Discuss DNR or withdrawal of care, Hospice)? DNR status @ -No What co-morbidities impacted this encounter? (DM, HTN, Smoking, COPD, CAD, Cancer, CVA, ARF, Chemo, Hep., AIDS, mental health diagnosis, sleep apnea, morbid obesity)? @ -None Was patient admitted / discharged? Hospital course, mention meds given and route, prescriptions, significant lab abnormalities, going to OR and other pertinent info. @ -Admitted. 60-year-old female presenting to the ER with complaints of generalized weakness, not feeling well and left-sided weakness. CT PE orders were placed prior to my initial evaluation the patient including brain CT, chest x-ray and laboratory testing. Patient's initial vitals are stable she is resting comfortably in examination bed. Patient has an NIH stroke scale score of 0 with no signs of bilateral limb ataxia, no upper or lower extremity pronator drift. Patient is currently endorsing chest discomfort however denies that this is "painful ". EKG is in sinus rhythm with no signs of ischemia. Patient's chest CBC, CMP, troponin and coagulations unremarkable. Chest x-ray no acute process. CT of the brain without contrast reveals no acute intracranial process with signs of white matter nonspecific ischemic changes. Patient will be admitted to internal medicine with neurology consult for further evaluation sided weakness. Patient is admitted to Dr. George. Consult placed to cardiology as patient has complaints of chest pressure. Undiagnosed new problem with uncertain prognosis? @ -No Drug Therapy requiring intensive monitoring for toxicity (Heparin, Nitro, Insulin, Cardizem)? @ -No Were any procedures done? @ -No Diagnosis/symptom? @ -left sided weakness, chest pressure Acute, or Chronic, or Acute on Chronic? @ -acute Uncomplicated (without systemic symptoms) or Complicated (systemic symptoms)? @ -complicated Side effects of treatment? @ -No Exacerbation, Progression, or Severe Exacerbation? @ -No Poses a threat to life or bodily function? How? (Chest pain, USA, ID, pneumonia, PE, COPD, DKA, ARF, appy, cholecystitis, CVA, Diverticulitis, Homicidal, Suicidal, threat to staff... and all critical care pts) @ -No (Gregoria Lopez) - Lab Data Lab Results 02/17/25 02/17/25 02/17/25 Range/Units 05:19 05:19 05:19 WBC 7.90 (4.50-10.00) 10*3/uL RBC 4.48 (4.10-5.20) 10*6/uL Hgb 12.7 (12.0-15.0) g/dL Hct 37.4 (37.2-46.3) % MCV 83.5 (80.0-97.0) fL MCH 28.3 (27.0-32.0) pg MCHC 34.0 (32.0-37.0) g/dL RDW (11.5-14.5) % Plt Count 232 (140-440) 10*3/uL MPV 8.7 L (9.5-12.2) fL Immature Gran % (Auto) 0.4 % Absolute Nucleated RBC % Neutrophils % 62.4 % Lymphocytes % 25.8 % Monocytes % 6.8 % Eosinophils % 3.8 % Basophils % 0.8 % Immature Gran # 0.03 (0.00-0.04) 10*3/uL Neutrophils # 4.93 (1.80-7.70) 10*3/uL Lymphocytes # 2.04 (0.90-5.00) 10*3/uL Monocytes # 0.54 (0.20-1.00) 10*3/uL Eosinophils # 0.30 (0.04-0.35) 10*3/uL Basophils # 0.06 (0.00-0.10) 10*3/uL NRBC/100 WBC Diff (0.00-0.01) X 10*3/uL ESR (0-30) mm/Hr PT 10.2 (10.0-12.5) sec INR 0.9 (<1.2) APTT 22.5 (22.0-30.0) sec Sodium 140 (137-145) mmol/L Potassium 4.4 (3.5-5.1) mmol/L Chloride 102 (98-107) mmol/L Carbon Dioxide 23 (22-30) mmol/L Anion Gap 15 mmol/L BUN 23 H (7-17) mg/dL Creatinine 0.75 (0.52-1.04) mg/dL Est GFR (CKD-EPI) (>=60) Est GFR (CKD-EPI)AfAm >90 (>60 ml/min/1.73 sqM) Est GFR (CKD-EPI)NonAf 87 (>60 ml/min/1.73 sqM) BUN/Creatinine Ratio (12.00-20.00) Ratio Glucose 191 H (74-99) mg/dL POC Glucose (mg/dL) (70-110) mg/dL POC Glu Property Field Adjuster ID Estimated Ave Glu mg/dL mg/dL Hemoglobin A1c (<=6.0) % Calcium 8.8 (8.4-10.2) mg/dL Total Bilirubin 0.5 (0.2-1.3) mg/dL AST 29 (14-36) U/L ALT 27 (4-34) U/L Alkaline Phosphatase 62 (38-126) U/L Ammonia (<30) umol/L Creatine Kinase 98 (30-135) U/L Troponin I (0.000-0.034) ng/mL C-Reactive Protein (0.00-0.80) mg/dL Total Protein 7.0 (6.3-8.2) g/dL Albumin 4.3 (3.5-5.0) g/dL Triglycerides (0.00-149.00) mg/dL Cholesterol (0.00-200.00) mg/dL LDL Cholesterol, Calc (0.0-131.0) mg/dL VLDL Cholesterol, Calc (5.00-40.00) mg/dL HDL Cholesterol (40.00-60.00) mg/dL Cholesterol/HDL Ratio Ratio Angiotensin Convert Enz (8-52) U/L Vitamin B6 (5-50) ug/L Vitamin B12 (200.0-944.0) pg/mL Methylmalonic Acid (<0.40) umol/L Folate (4.40-31.00) ng/mL TSH (0.465-4.680) mIU/L Free T4 (0.78-2.19) ng/dL DERECK Screen (Negative) SS-A Antibody AI SS-B Ab Interp (Negative) SS-B Antibody AI Lyme Screen IgG & IgM (Negative) Lyme Disease IgG/IgM 02/17/25 02/17/25 02/17/25 Range/Units 05:19 08:06 11:29 WBC (4.50-10.00) 10*3/uL RBC (4.10-5.20) 10*6/uL Hgb (12.0-15.0) g/dL Hct (37.2-46.3) % MCV (80.0-97.0) fL MCH (27.0-32.0) pg MCHC (32.0-37.0) g/dL RDW (11.5-14.5) % Plt Count (140-440) 10*3/uL MPV (9.5-12.2) fL Immature Gran % (Auto) % Absolute Nucleated RBC % Neutrophils % % Lymphocytes % % Monocytes % % Eosinophils % % Basophils % % Immature Gran # (0.00-0.04) 10*3/uL Neutrophils # (1.80-7.70) 10*3/uL Lymphocytes # (0.90-5.00) 10*3/uL Monocytes # (0.20-1.00) 10*3/uL Eosinophils # (0.04-0.35) 10*3/uL Basophils # (0.00-0.10) 10*3/uL NRBC/100 WBC Diff (0.00-0.01) X 10*3/uL ESR (0-30) mm/Hr PT (10.0-12.5) sec INR (<1.2) APTT (22.0-30.0) sec Sodium (137-145) mmol/L Potassium (3.5-5.1) mmol/L Chloride (98-107) mmol/L Carbon Dioxide (22-30) mmol/L Anion Gap mmol/L BUN (7-17) mg/dL Creatinine (0.52-1.04) mg/dL Est GFR (CKD-EPI) (>=60) Est GFR (CKD-EPI)AfAm (>60 ml/min/1.73 sqM) Est GFR (CKD-EPI)NonAf (>60 ml/min/1.73 sqM) BUN/Creatinine Ratio (12.00-20.00) Ratio Glucose (74-99) mg/dL POC Glucose (mg/dL) (70-110) mg/dL POC Glu Property Field Adjuster ID Estimated Ave Glu mg/dL mg/dL Hemoglobin A1c (<=6.0) % Calcium (8.4-10.2) mg/dL Total Bilirubin (0.2-1.3) mg/dL AST (14-36) U/L ALT (4-34) U/L Alkaline Phosphatase (38-126) U/L Ammonia (<30) umol/L Creatine Kinase (30-135) U/L Troponin I <0.012 <0.012 <0.012 (0.000-0.034) ng/mL C-Reactive Protein (0.00-0.80) mg/dL Total Protein (6.3-8.2) g/dL Albumin (3.5-5.0) g/dL Triglycerides (0.00-149.00) mg/dL Cholesterol (0.00-200.00) mg/dL LDL Cholesterol, Calc (0.0-131.0) mg/dL VLDL Cholesterol, Calc (5.00-40.00) mg/dL HDL Cholesterol (40.00-60.00) mg/dL Cholesterol/HDL Ratio Ratio Angiotensin Convert Enz (8-52) U/L Vitamin B6 (5-50) ug/L Vitamin B12 (200.0-944.0) pg/mL Methylmalonic Acid (<0.40) umol/L Folate (4.40-31.00) ng/mL TSH (0.465-4.680) mIU/L Free T4 (0.78-2.19) ng/dL DERECK Screen (Negative) SS-A Antibody AI SS-B Ab Interp (Negative) SS-B Antibody AI Lyme Screen IgG & IgM (Negative) Lyme Disease IgG/IgM 02/17/25 02/17/25 02/17/25 Range/Units 11:35 11:35 11:35 WBC (4.50-10.00) 10*3/uL RBC (4.10-5.20) 10*6/uL Hgb (12.0-15.0) g/dL Hct (37.2-46.3) % MCV (80.0-97.0) fL MCH (27.0-32.0) pg MCHC (32.0-37.0) g/dL RDW (11.5-14.5) % Plt Count (140-440) 10*3/uL MPV (9.5-12.2) fL Immature Gran % (Auto) % Absolute Nucleated RBC % Neutrophils % % Lymphocytes % % Monocytes % % Eosinophils % % Basophils % % Immature Gran # (0.00-0.04) 10*3/uL Neutrophils # (1.80-7.70) 10*3/uL Lymphocytes # (0.90-5.00) 10*3/uL Monocytes # (0.20-1.00) 10*3/uL Eosinophils # (0.04-0.35) 10*3/uL Basophils # (0.00-0.10) 10*3/uL NRBC/100 WBC Diff (0.00-0.01) X 10*3/uL ESR (0-30) mm/Hr PT (10.0-12.5) sec INR (<1.2) APTT (22.0-30.0) sec Sodium (137-145) mmol/L Potassium (3.5-5.1) mmol/L Chloride (98-107) mmol/L Carbon Dioxide (22-30) mmol/L Anion Gap mmol/L BUN (7-17) mg/dL Creatinine (0.52-1.04) mg/dL Est GFR (CKD-EPI) (>=60) Est GFR (CKD-EPI)AfAm (>60 ml/min/1.73 sqM) Est GFR (CKD-EPI)NonAf (>60 ml/min/1.73 sqM) BUN/Creatinine Ratio (12.00-20.00) Ratio Glucose (74-99) mg/dL POC Glucose (mg/dL) (70-110) mg/dL POC Glu Property Field Adjuster ID Estimated Ave Glu mg/dL 189 mg/dL Hemoglobin A1c 8.2 H (<=6.0) % Calcium (8.4-10.2) mg/dL Total Bilirubin (0.2-1.3) mg/dL AST (14-36) U/L ALT (4-34) U/L Alkaline Phosphatase (38-126) U/L Ammonia (<30) umol/L Creatine Kinase (30-135) U/L Troponin I (0.000-0.034) ng/mL C-Reactive Protein (0.00-0.80) mg/dL Total Protein (6.3-8.2) g/dL Albumin (3.5-5.0) g/dL Triglycerides 149.00 (0.00-149.00) mg/dL Cholesterol 171.00 (0.00-200.00) mg/dL LDL Cholesterol, Calc 84.7 (0.0-131.0) mg/dL VLDL Cholesterol, Calc 29.80 (5.00-40.00) mg/dL HDL Cholesterol 56.50 (40.00-60.00) mg/dL Cholesterol/HDL Ratio 3.03 Ratio Angiotensin Convert Enz (8-52) U/L Vitamin B6 (5-50) ug/L Vitamin B12 407.0 (200.0-944.0) pg/mL Methylmalonic Acid (<0.40) umol/L Folate 16.50 (4.40-31.00) ng/mL TSH 0.165 L (0.465-4.680) mIU/L Free T4 1.98 (0.78-2.19) ng/dL DERECK Screen (Negative) SS-A Antibody AI SS-B Ab Interp (Negative) SS-B Antibody AI Lyme Screen IgG & IgM (Negative) Lyme Disease IgG/IgM 02/17/25 02/18/25 02/18/25 Range/Units 11:35 02:44 02:44 WBC 8.40 (4.50-10.00) 10*3/uL RBC 4.88 (4.10-5.20) 10*6/uL Hgb 13.2 (12.0-15.0) g/dL Hct 41.3 (37.2-46.3) % MCV 84.6 (80.0-97.0) fL MCH 27.0 (27.0-32.0) pg MCHC 32.0 (32.0-37.0) g/dL RDW 13.0 (11.5-14.5) % Plt Count 242 (140-440) 10*3/uL MPV 9.0 L (9.5-12.2) fL Immature Gran % (Auto) 0.40 % Absolute Nucleated RBC 0 % Neutrophils % 54.9 % Lymphocytes % 33.3 % Monocytes % 7.6 % Eosinophils % 3.2 % Basophils % 0.6 % Immature Gran # 0.03 (0.00-0.04) 10*3/uL Neutrophils # 4.61 (1.80-7.70) 10*3/uL Lymphocytes # 2.80 (0.90-5.00) 10*3/uL Monocytes # 0.64 (0.20-1.00) 10*3/uL Eosinophils # 0.27 (0.04-0.35) 10*3/uL Basophils # 0.05 (0.00-0.10) 10*3/uL NRBC/100 WBC Diff 0 (0.00-0.01) X 10*3/uL ESR (0-30) mm/Hr PT (10.0-12.5) sec INR (<1.2) APTT (22.0-30.0) sec Sodium 139 (137-145) mmol/L Potassium 4.0 (3.5-5.1) mmol/L Chloride 100 (98-107) mmol/L Carbon Dioxide 25.2 (22-30) mmol/L Anion Gap 13.80 H mmol/L BUN 19.9 (7-17) mg/dL Creatinine 1.0 (0.52-1.04) mg/dL Est GFR (CKD-EPI) 64 (>=60) Est GFR (CKD-EPI)AfAm (>60 ml/min/1.73 sqM) Est GFR (CKD-EPI)NonAf (>60 ml/min/1.73 sqM) BUN/Creatinine Ratio 19.90 (12.00-20.00) Ratio Glucose 182 H (74-99) mg/dL POC Glucose (mg/dL) (70-110) mg/dL POC Glu Property Field Adjuster ID Estimated Ave Glu mg/dL mg/dL Hemoglobin A1c (<=6.0) % Calcium 9.0 (8.4-10.2) mg/dL Total Bilirubin (0.2-1.3) mg/dL AST (14-36) U/L ALT (4-34) U/L Alkaline Phosphatase (38-126) U/L Ammonia <9 (<30) umol/L Creatine Kinase (30-135) U/L Troponin I (0.000-0.034) ng/mL C-Reactive Protein (0.00-0.80) mg/dL Total Protein (6.3-8.2) g/dL Albumin (3.5-5.0) g/dL Triglycerides (0.00-149.00) mg/dL Cholesterol (0.00-200.00) mg/dL LDL Cholesterol, Calc (0.0-131.0) mg/dL VLDL Cholesterol, Calc (5.00-40.00) mg/dL HDL Cholesterol (40.00-60.00) mg/dL Cholesterol/HDL Ratio Ratio Angiotensin Convert Enz (8-52) U/L Vitamin B6 (5-50) ug/L Vitamin B12 (200.0-944.0) pg/mL Methylmalonic Acid (<0.40) umol/L Folate (4.40-31.00) ng/mL TSH (0.465-4.680) mIU/L Free T4 (0.78-2.19) ng/dL DERECK Screen (Negative) SS-A Antibody AI SS-B Ab Interp (Negative) SS-B Antibody AI Lyme Screen IgG & IgM (Negative) Lyme Disease IgG/IgM 02/18/25 02/18/25 02/18/25 Range/Units 02:44 02:44 07:23 WBC (4.50-10.00) 10*3/uL RBC (4.10-5.20) 10*6/uL Hgb (12.0-15.0) g/dL Hct (37.2-46.3) % MCV (80.0-97.0) fL MCH (27.0-32.0) pg MCHC (32.0-37.0) g/dL RDW (11.5-14.5) % Plt Count (140-440) 10*3/uL MPV (9.5-12.2) fL Immature Gran % (Auto) % Absolute Nucleated RBC % Neutrophils % % Lymphocytes % % Monocytes % % Eosinophils % % Basophils % % Immature Gran # (0.00-0.04) 10*3/uL Neutrophils # (1.80-7.70) 10*3/uL Lymphocytes # (0.90-5.00) 10*3/uL Monocytes # (0.20-1.00) 10*3/uL Eosinophils # (0.04-0.35) 10*3/uL Basophils # (0.00-0.10) 10*3/uL NRBC/100 WBC Diff (0.00-0.01) X 10*3/uL ESR 32 H (0-30) mm/Hr PT (10.0-12.5) sec INR (<1.2) APTT (22.0-30.0) sec Sodium (137-145) mmol/L Potassium (3.5-5.1) mmol/L Chloride (98-107) mmol/L Carbon Dioxide (22-30) mmol/L Anion Gap mmol/L BUN (7-17) mg/dL Creatinine (0.52-1.04) mg/dL Est GFR (CKD-EPI) (>=60) Est GFR (CKD-EPI)AfAm (>60 ml/min/1.73 sqM) Est GFR (CKD-EPI)NonAf (>60 ml/min/1.73 sqM) BUN/Creatinine Ratio (12.00-20.00) Ratio Glucose (74-99) mg/dL POC Glucose (mg/dL) 183 H (70-110) mg/dL POC Glu Property Field Adjuster ID Rolando Arizmendi Estimated Ave Glu mg/dL mg/dL Hemoglobin A1c (<=6.0) % Calcium (8.4-10.2) mg/dL Total Bilirubin (0.2-1.3) mg/dL AST (14-36) U/L ALT (4-34) U/L Alkaline Phosphatase (38-126) U/L Ammonia (<30) umol/L Creatine Kinase 201 H (30-135) U/L Troponin I (0.000-0.034) ng/mL C-Reactive Protein <0.30 (0.00-0.80) mg/dL Total Protein (6.3-8.2) g/dL Albumin (3.5-5.0) g/dL Triglycerides (0.00-149.00) mg/dL Cholesterol (0.00-200.00) mg/dL LDL Cholesterol, Calc (0.0-131.0) mg/dL VLDL Cholesterol, Calc (5.00-40.00) mg/dL HDL Cholesterol (40.00-60.00) mg/dL Cholesterol/HDL Ratio Ratio Angiotensin Convert Enz (8-52) U/L Vitamin B6 (5-50) ug/L Vitamin B12 (200.0-944.0) pg/mL Methylmalonic Acid (<0.40) umol/L Folate (4.40-31.00) ng/mL TSH (0.465-4.680) mIU/L Free T4 (0.78-2.19) ng/dL DERECK Screen (Negative) SS-A Antibody AI SS-B Ab Interp (Negative) SS-B Antibody AI Lyme Screen IgG & IgM (Negative) Lyme Disease IgG/IgM 02/18/25 02/18/25 02/18/25 Range/Units 12:20 16:58 16:58 WBC (4.50-10.00) 10*3/uL RBC (4.10-5.20) 10*6/uL Hgb (12.0-15.0) g/dL Hct (37.2-46.3) % MCV (80.0-97.0) fL MCH (27.0-32.0) pg MCHC (32.0-37.0) g/dL RDW (11.5-14.5) % Plt Count (140-440) 10*3/uL MPV (9.5-12.2) fL Immature Gran % (Auto) % Absolute Nucleated RBC % Neutrophils % % Lymphocytes % % Monocytes % % Eosinophils % % Basophils % % Immature Gran # (0.00-0.04) 10*3/uL Neutrophils # (1.80-7.70) 10*3/uL Lymphocytes # (0.90-5.00) 10*3/uL Monocytes # (0.20-1.00) 10*3/uL Eosinophils # (0.04-0.35) 10*3/uL Basophils # (0.00-0.10) 10*3/uL NRBC/100 WBC Diff (0.00-0.01) X 10*3/uL ESR (0-30) mm/Hr PT (10.0-12.5) sec INR (<1.2) APTT (22.0-30.0) sec Sodium (137-145) mmol/L Potassium (3.5-5.1) mmol/L Chloride (98-107) mmol/L Carbon Dioxide (22-30) mmol/L Anion Gap mmol/L BUN (7-17) mg/dL Creatinine (0.52-1.04) mg/dL Est GFR (CKD-EPI) (>=60) Est GFR (CKD-EPI)AfAm (>60 ml/min/1.73 sqM) Est GFR (CKD-EPI)NonAf (>60 ml/min/1.73 sqM) BUN/Creatinine Ratio (12.00-20.00) Ratio Glucose (74-99) mg/dL POC Glucose (mg/dL) 141 H (70-110) mg/dL POC Glu Property Field Adjuster ID [place] [address] Glu mg/dL mg/dL Hemoglobin A1c (<=6.0) % Calcium (8.4-10.2) mg/dL Total Bilirubin (0.2-1.3) mg/dL AST (14-36) U/L ALT (4-34) U/L Alkaline Phosphatase (38-126) U/L Ammonia (<30) umol/L Creatine Kinase (30-135) U/L Troponin I (0.000-0.034) ng/mL C-Reactive Protein (0.00-0.80) mg/dL Total Protein (6.3-8.2) g/dL Albumin (3.5-5.0) g/dL Triglycerides (0.00-149.00) mg/dL Cholesterol (0.00-200.00) mg/dL LDL Cholesterol, Calc (0.0-131.0) mg/dL VLDL Cholesterol, Calc (5.00-40.00) mg/dL HDL Cholesterol (40.00-60.00) mg/dL Cholesterol/HDL Ratio Ratio Angiotensin Convert Enz (8-52) U/L Vitamin B6 (5-50) ug/L Vitamin B12 (200.0-944.0) pg/mL Methylmalonic Acid (<0.40) umol/L Folate (4.40-31.00) ng/mL TSH (0.465-4.680) mIU/L Free T4 (0.78-2.19) ng/dL DERECK Screen Negative (Negative) SS-A Antibody AI SS-B Ab Interp (Negative) SS-B Antibody AI Lyme Screen IgG & IgM Negative (Negative) Lyme Disease IgG/IgM .050 02/18/25 02/18/25 02/19/25 Range/Units 17:05 19:21 04:34 WBC (4.50-10.00) 10*3/uL RBC (4.10-5.20) 10*6/uL Hgb (12.0-15.0) g/dL Hct (37.2-46.3) % MCV (80.0-97.0) fL MCH (27.0-32.0) pg MCHC (32.0-37.0) g/dL RDW (11.5-14.5) % Plt Count (140-440) 10*3/uL MPV (9.5-12.2) fL Immature Gran % (Auto) % Absolute Nucleated RBC % Neutrophils % % Lymphocytes % % Monocytes % % Eosinophils % % Basophils % % Immature Gran # (0.00-0.04) 10*3/uL Neutrophils # (1.80-7.70) 10*3/uL Lymphocytes # (0.90-5.00) 10*3/uL Monocytes # (0.20-1.00) 10*3/uL Eosinophils # (0.04-0.35) 10*3/uL Basophils # (0.00-0.10) 10*3/uL NRBC/100 WBC Diff (0.00-0.01) X 10*3/uL ESR (0-30) mm/Hr PT (10.0-12.5) sec INR (<1.2) APTT (22.0-30.0) sec Sodium (137-145) mmol/L Potassium (3.5-5.1) mmol/L Chloride (98-107) mmol/L Carbon Dioxide (22-30) mmol/L Anion Gap mmol/L BUN (7-17) mg/dL Creatinine (0.52-1.04) mg/dL Est GFR (CKD-EPI) (>=60) Est GFR (CKD-EPI)AfAm (>60 ml/min/1.73 sqM) Est GFR (CKD-EPI)NonAf (>60 ml/min/1.73 sqM) BUN/Creatinine Ratio (12.00-20.00) Ratio Glucose (74-99) mg/dL POC Glucose (mg/dL) 192 H 206 H (70-110) mg/dL POC Glu Property Field Adjuster ID FERNANDA Baird [address] Glu mg/dL 189 mg/dL Hemoglobin A1c 8.2 H (<=6.0) % Calcium (8.4-10.2) mg/dL Total Bilirubin (0.2-1.3) mg/dL AST (14-36) U/L ALT (4-34) U/L Alkaline Phosphatase (38-126) U/L Ammonia (<30) umol/L Creatine Kinase (30-135) U/L Troponin I (0.000-0.034) ng/mL C-Reactive Protein (0.00-0.80) mg/dL Total Protein (6.3-8.2) g/dL Albumin (3.5-5.0) g/dL Triglycerides (0.00-149.00) mg/dL Cholesterol (0.00-200.00) mg/dL LDL Cholesterol, Calc (0.0-131.0) mg/dL VLDL Cholesterol, Calc (5.00-40.00) mg/dL HDL Cholesterol (40.00-60.00) mg/dL Cholesterol/HDL Ratio Ratio Angiotensin Convert Enz (8-52) U/L Vitamin B6 (5-50) ug/L Vitamin B12 (200.0-944.0) pg/mL Methylmalonic Acid (<0.40) umol/L Folate (4.40-31.00) ng/mL TSH (0.465-4.680) mIU/L Free T4 (0.78-2.19) ng/dL DERECK Screen (Negative) SS-A Antibody AI SS-B Ab Interp (Negative) SS-B Antibody AI Lyme Screen IgG & IgM (Negative) Lyme Disease IgG/IgM 02/19/25 02/19/25 02/19/25 Range/Units 04:34 04:34 04:34 WBC (4.50-10.00) 10*3/uL RBC (4.10-5.20) 10*6/uL Hgb (12.0-15.0) g/dL Hct (37.2-46.3) % MCV (80.0-97.0) fL MCH (27.0-32.0) pg MCHC (32.0-37.0) g/dL RDW (11.5-14.5) % Plt Count (140-440) 10*3/uL MPV (9.5-12.2) fL Immature Gran % (Auto) % Absolute Nucleated RBC % Neutrophils % % Lymphocytes % % Monocytes % % Eosinophils % % Basophils % % Immature Gran # (0.00-0.04) 10*3/uL Neutrophils # (1.80-7.70) 10*3/uL Lymphocytes # (0.90-5.00) 10*3/uL Monocytes # (0.20-1.00) 10*3/uL Eosinophils # (0.04-0.35) 10*3/uL Basophils # (0.00-0.10) 10*3/uL NRBC/100 WBC Diff (0.00-0.01) X 10*3/uL ESR (0-30) mm/Hr PT (10.0-12.5) sec INR (<1.2) APTT (22.0-30.0) sec Sodium (137-145) mmol/L Potassium (3.5-5.1) mmol/L Chloride (98-107) mmol/L Carbon Dioxide (22-30) mmol/L Anion Gap mmol/L BUN (7-17) mg/dL Creatinine (0.52-1.04) mg/dL Est GFR (CKD-EPI) (>=60) Est GFR (CKD-EPI)AfAm (>60 ml/min/1.73 sqM) Est GFR (CKD-EPI)NonAf (>60 ml/min/1.73 sqM) BUN/Creatinine Ratio (12.00-20.00) Ratio Glucose (74-99) mg/dL POC Glucose (mg/dL) (70-110) mg/dL POC Glu Property Field Adjuster ID Estimated Ave Glu mg/dL mg/dL Hemoglobin A1c (<=6.0) % Calcium (8.4-10.2) mg/dL Total Bilirubin (0.2-1.3) mg/dL AST (14-36) U/L ALT (4-34) U/L Alkaline Phosphatase (38-126) U/L Ammonia (<30) umol/L Creatine Kinase (30-135) U/L Troponin I (0.000-0.034) ng/mL C-Reactive Protein (0.00-0.80) mg/dL Total Protein (6.3-8.2) g/dL Albumin (3.5-5.0) g/dL Triglycerides (0.00-149.00) mg/dL Cholesterol (0.00-200.00) mg/dL LDL Cholesterol, Calc (0.0-131.0) mg/dL VLDL Cholesterol, Calc (5.00-40.00) mg/dL HDL Cholesterol (40.00-60.00) mg/dL Cholesterol/HDL Ratio Ratio Angiotensin Convert Enz 43 (8-52) U/L Vitamin B6 14 (5-50) ug/L Vitamin B12 (200.0-944.0) pg/mL Methylmalonic Acid 0.45 H (<0.40) umol/L Folate (4.40-31.00) ng/mL TSH (0.465-4.680) mIU/L Free T4 (0.78-2.19) ng/dL DERECK Screen (Negative) SS-A Antibody <0.2 AI SS-B Ab Interp Negative (Negative) SS-B Antibody <0.2 AI Lyme Screen IgG & IgM (Negative) Lyme Disease IgG/IgM 02/19/25 Range/Units 06:24 WBC (4.50-10.00) 10*3/uL RBC (4.10-5.20) 10*6/uL Hgb (12.0-15.0) g/dL Hct (37.2-46.3) % MCV (80.0-97.0) fL MCH (27.0-32.0) pg MCHC (32.0-37.0) g/dL RDW (11.5-14.5) % Plt Count (140-440) 10*3/uL MPV (9.5-12.2) fL Immature Gran % (Auto) % Absolute Nucleated RBC % Neutrophils % % Lymphocytes % % Monocytes % % Eosinophils % % Basophils % % Immature Gran # (0.00-0.04) 10*3/uL Neutrophils # (1.80-7.70) 10*3/uL Lymphocytes # (0.90-5.00) 10*3/uL Monocytes # (0.20-1.00) 10*3/uL Eosinophils # (0.04-0.35) 10*3/uL Basophils # (0.00-0.10) 10*3/uL NRBC/100 WBC Diff (0.00-0.01) X 10*3/uL ESR (0-30) mm/Hr PT (10.0-12.5) sec INR (<1.2) APTT (22.0-30.0) sec Sodium (137-145) mmol/L Potassium (3.5-5.1) mmol/L Chloride (98-107) mmol/L Carbon Dioxide (22-30) mmol/L Anion Gap mmol/L BUN (7-17) mg/dL Creatinine (0.52-1.04) mg/dL Est GFR (CKD-EPI) (>=60) Est GFR (CKD-EPI)AfAm (>60 ml/min/1.73 sqM) Est GFR (CKD-EPI)NonAf (>60 ml/min/1.73 sqM) BUN/Creatinine Ratio (12.00-20.00) Ratio Glucose (74-99) mg/dL POC Glucose (mg/dL) 242 H (70-110) mg/dL POC Glu Property Field Adjuster ID Kamryn Baird [address]imated [address] Glu mg/dL mg/dL Hemoglobin A1c (<=6.0) % Calcium (8.4-10.2) mg/dL Total Bilirubin (0.2-1.3) mg/dL AST (14-36) U/L ALT (4-34) U/L Alkaline Phosphatase (38-126) U/L Ammonia (<30) umol/L Creatine Kinase (30-135) U/L Troponin I (0.000-0.034) ng/mL C-Reactive Protein (0.00-0.80) mg/dL Total Protein (6.3-8.2) g/dL Albumin (3.5-5.0) g/dL Triglycerides (0.00-149.00) mg/dL Cholesterol (0.00-200.00) mg/dL LDL Cholesterol, Calc (0.0-131.0) mg/dL VLDL Cholesterol, Calc (5.00-40.00) mg/dL HDL Cholesterol (40.00-60.00) mg/dL Cholesterol/HDL Ratio Ratio Angiotensin Convert Enz (8-52) U/L Vitamin B6 (5-50) ug/L Vitamin B12 (200.0-944.0) pg/mL Methylmalonic Acid (<0.40) umol/L Folate (4.40-31.00) ng/mL TSH (0.465-4.680) mIU/L Free T4 (0.78-2.19) ng/dL DERECK Screen (Negative) SS-A Antibody AI SS-B Ab Interp (Negative) SS-B Antibody AI Lyme Screen IgG & IgM (Negative) Lyme Disease IgG/IgM Disposition Decision to Admit Reason: Admit from EC Decision Date: 02/17/25 Decision Time: 07:26 <Gregoria Lopez - Last Filed: 02/17/25 08:56> <Brendan Young - Last Filed: 02/28/25 19:51> Clinical Impression: Transient cerebral ischemia Disposition: ADMITTED IP TO THIS HOSP Condition: Stable
[2025-02-17] MEDS ORDERED: NALOXONE 0.4 MG/ML 1 ML VIAL IV PRN (06:50)
[2025-02-17] MEDS: LORATADINE 10 MG TAB PO SCH (08:51)
[2025-02-17] MEDS: MELOXICAM 7.5 MG TAB PO SCH (08:51)
[2025-02-17] MEDS: LEVOTHYROXINE 88 MCG TAB PO SCH (08:52)
[2025-02-17] MEDS: CALCIUM CARB-VIT D 500 MG-5 MCG TAB PO SCH (08:52)
[2025-02-17] MEDS: LOSARTAN-HCTZ 50-12.5 MG 1 EACH TAB PO SCH (08:53)
[2025-02-17] MEDS: ATORVASTATIN 80 MG TAB PO SCH (08:53)
--- NOTE | 2025-02-17 11:30 | P.HPIM ---
History of Present Illness This is a pleasant 62 years old female with past medical history of multiple medical problems as below. Patient states she could not walk and she has weakness in the left hand and she felt this morning. The symptoms has been going on for last 2 days. She states that she has left side weakness both arms and leg, her left arm more than her left leg. No tingling or numbness Headache or dizziness but complains from little pressure behind her left eye without change in vision She vomited once but no current more vomiting no abdominal pain or diarrhea. No dysuria or urgency. She had some chest pain in the middle going to the back felt like pressure nonspecific, currently gone now. No smoking alcohol or illicit drugs. She is no fever. Blood pressure stable. Labs including CBC, BMP, LFT and INR were unremarkable. Troponin x 2 were negative less than 0.012. EKG showing sinus rhythm at [address]-T changes. Chest x-ray showing no acute cardiopulmonary process. Reviewed chest x-ray by myself and agree. CT of the brain showing moderate nonspecific white matter changes which favor chronic small vessel ischemic changes. However acute/subacute stroke cannot be ruled out. Patient states she is not taking any blood thinners or aspirin at home. Review of Systems Review of systems CONSTITUTIONAL: No fever, no malaise, no fatigue. HEENT: No recent visual problems or hearing problems. Denied any sore throat. CARDIOVASCULAR: No orthopnea, PND, no palpitations, no syncope. PULMONARY: No shortness of breath, no cough, no hemoptysis. GASTROINTESTINAL: No diarrhea, no nausea, no vomiting, no abdominal pain. Normoactive bowel sounds. NEUROLOGICAL: No headaches, no weakness, no numbness. HEMATOLOGICAL: Denies any bleeding or petechiae. GENITOURINARY: Denies any burning micturition, frequency, or urgency. MUSCULOSKELETAL/RHEUMATOLOGICAL: Denies any joint pain, swelling, or any muscle pain. ENDOCRINE: Denies any polyuria or polydipsia. Past Medical History Past Medical History: Asthma, Cancer, Diabetes Mellitus, GERD/Reflux, Musculoskeletal Disorder, Thyroid Disorder Additional Past Medical History / Comment(s): ganglion cyst right foot that causes pain, hx. breast [id number] & 1997-surg. & radiation, thyroid cancer 1998 & 2012 covid 01/2025 History of Any Multi-Drug Resistant Organisms: None Reported Past Surgical History: Appendectomy, Breast Surgery, Hysterectomy Additional Past Surgical History / Comment(s): thyroidectomy & parathyroidectomy, bilateral breast lumpectomies, skin lesions removed, ALICIA/BSO Past Anesthesia/Blood Transfusion Reactions: Previous Problems w/ Anesthesia Additional Past Anesthesia/Blood Transfusion Reaction / Comment(s): slow to wake up Past Psychological History: Anxiety, Depression Smoking Status: Never smoker Past Alcohol Use History: None Reported Past Drug Use History: None Reported - Past Family History Mother Family Medical History: No Reported History Medications and Allergies Home Medications Medication Instructions Recorded Confirmed Type Acetaminophen [Tylenol Extra 1,000 mg PO Q6H PRN 02/15/17 02/17/25 History Strength] Dapagliflozin Propanediol [Farxiga] 10 mg PO DAILY 02/15/17 02/17/25 History Sertraline HCl [Zoloft] 200 mg PO HS 02/15/17 02/17/25 History metFORMIN HCL [Glucophage] 500 mg PO BID 02/15/17 02/17/25 History ALPRAZolam [Xanax] 0.5 mg PO BID PRN 02/17/25 02/17/25 History Calcium W/Vitamin D3 1800mg 1 tab PO DAILY 02/17/25 02/17/25 History Cetirizine HCl [Zyrtec] 10 mg PO DAILY 02/17/25 02/17/25 History Insulin Degludec [Tresiba 32 units SQ DAILY 02/17/25 02/17/25 History Flextouch U-200 Pen] Levothyroxine Sodium [Synthroid] 175 mcg PO DAILY 02/17/25 02/17/25 History Losartan/Hydrochlorothiazide 1 tab PO DAILY 02/17/25 02/17/25 History [Losartan-Hctz 100-25 mg Tab] Meloxicam [Mobic] 15 mg PO DAILY 02/17/25 02/17/25 History Rosuvastatin Calcium [Crestor] 40 mg PO DAILY 02/17/25 02/17/25 History Semaglutide [Ozempic] 2 mg SQ MO 02/17/25 02/17/25 History traZODone HCL [Desyrel] 100 mg PO HS 02/17/25 02/17/25 History Allergies Allergy/AdvReac Type Severity Reaction Status Date / Time No Known Allergies Allergy Verified 02/17/25 07:57 Physical Exam Vitals: Vital Signs Temp Pulse Resp BP Pulse Ox 02/17/25 08:40 65 128/73 100 02/17/25 06:46 66 18 139/70 97 02/17/25 06:31 66 17 139/70 97 02/17/25 06:01 67 18 138/73 97 02/17/25 04:53 97.9 F 74 16 121/83 97 Intake and Output 02/16/25 02/17/25 02/17/25 22:59 06:59 14:59 Other: Weight 87.997 kg -GENERAL: The patient is alert and oriented x3, not in any acute distress. Well developed, well nourished. Obese HEENT: Pupils are round and equally reacting to light. EOMI. No scleral icterus. No conjunctival pallor. Normocephalic, atraumatic. No pharyngeal erythema. No thyromegaly. CARDIOVASCULAR: S1 and S2 present. No murmurs, rubs, or gallops. PULMONARY: Chest is clear to auscultation, no wheezing , no crackles. ABDOMEN: Soft, nontender, nondistended, normoactive bowel sounds. No palpable organomegaly. MUSCULOSKELETAL: No joint swelling or deformity. EXTREMITIES: No cyanosis, clubbing, or pedal edema. -NEUROLOGICAL: Cranial nerves are grossly intact. Left arm, left leg are weak. Numbness are absent. Meningeal signs labs SKIN: No rashes. no petechiae. Results CBC & Chem 7: 02/17/25 05:19 02/17/25 05:19 Labs: Abnormal Lab Results - Last 24 Hours (Table) 02/17/25 02/17/25 Range/Units 05:19 05:19 MPV 8.7 L (9.5-12.2) fL BUN 23 H (7-17) mg/dL Glucose 191 H (74-99) mg/dL Assessment and Plan Assessment: Acute left hemiparesis suspicious for acute stroke Central chest pain mild and improved Obesity with BMI of 32 Diabetes mellitus Hyperlipidemia Hypothyroidism History of asthma History of depression anxiety Plan: Start aspirin 325 mg x 1 and then continue 81 mg Control blood pressure. Continue monitoring insulin Check carotid duplex and echocardiogram Neurology and cardiology team consult Labs and medication were reviewed.. Continue same treatment. Continue with symptomatic treatment. Resume home medication. Monitor labs and vitals. DVT and GI prophylaxis. Further recommendations as per clinical course of the patient DVT prophylaxis: Subcutaneous heparin GI Prophylaxis: Pepcid PT/OT: Pending Speech and swallow evaluation Prognosis is guarded
[2025-02-17] MEDS: ASPIRIN 325 MG TAB PO STA (11:59)
--- NOTE | 2025-02-17 13:04 | US ---
EXAMINATION TYPE: US carotid duplex BILAT DATE OF EXAM: 02/17/2025 COMPARISON: NONE CLINICAL INDICATION: Female, 60 years old with history of stroke; Left side limb weakness began yeste rday Additional History: R26.- Gait and mobility abnormalities TECHNIQUE: Grayscale, color Doppler and spectral Doppler evaluation of the bilateral carotid systems and vertebral arteries. Indirect Doppler criteria was utilized. FINDINGS: EXAM MEASUREMENTS: RIGHT: Peak Systolic Velocity (PSV) cm/sec ----- Right CCA: 75.1 ----- Right ICA: 83.9 ----- Right ECA: 96.5 ICA/CCA ratio: 1.1 RIGHT: End Diastole cm/sec ----- Right CCA: 16.8 ----- Right ICA: 30.6 ----- Right ECA: 9.4 LEFT: Peak Systolic Velocity (PSV) cm/sec ----- Left CCA: 76.8 ----- Left ICA: 108 ----- Left ECA: 79.2 ICA/CCA ratio: 1.4 LEFT: End Diastole cm/sec ----- Left CCA: 18.0 ----- Left ICA: 43.0 ----- Left ECA: 26.9 VERTEBRALS (direction of flow): Right Vertebral: Antegrade Left Vertebral: Antegrade Rhythm: Normal [employer] CONSULTANT NOTES: No evidence of hemodynamically significant stenosis. There is mild atherosclerotic plaque at the left carotid bifurcation. There is a 0.6x0.4x0.5cm nodular area inferior and lateral to the right carotid bifurcation. Per pat ient: Hx of thyroid cancer 3x, last in 2011. Thyroidectomy and parathyroidectomy. Color Doppler imaging shows patency with blood flow throughout the carotid artery. Spectral waveforms are within normal limits. IMPRESSION: Right: No hemodynamically significant stenosis. Left: No hemodynamically significant stenosis. Subcentimeter nodular area inferior and lateral to the right carotid bifurcation. May represent a lym ph node. Correlation with outside imaging is recommended otherwise consider short-term follow-up ultr asound exam. Criteria for Assigning % of Stenosis / Diameter reduction (Estimation based on the indirect measurements of the internal carotid artery velocities (ICA PSV). 1. Normal (no stenosis)=ICA PSV < 180 cm/s: ratio < 2.0: ICA EDV<40 cm/s. 2. Less than 50% stenosis=ICA PSV < 180 cm/s: ratio < 2.0: ICA EDV<40 cm/s. 3. 50 to 69% stenosis=ICA PSV of 180 to 230 cm/s: ration 2.0 ? 4.0: ICA EDV 40-100 cm/s. PSV 125-180 cm/sec and ICA/CCA PSV Ratio ? 2.0 is also consistent with 50-69% stenosis 4. Greater than 70% stenosis to near occlusion= ICA PSV > 230 cm/s: ratio > 4.0: ICA EDV > 100 cm/s. 5. Near occlusion= ICA PSV velocities may be low or undetectable: variable ratio and ICA EDV. 6. Total occlusion=unable to detect flow. [facility], , 02/17/2025 1:02 PM
[2025-02-17 13:20] LABS: T4, Free (Free Thyroxine) 1.98 ng/dL (0.78-2.19)
--- NOTE | 2025-02-17 13:22 | P.CRDCN ---
History of Present Illness Consult date: 02/17/25 Consult reason: chest pain History of present illness: This is a 60-year-old female patient with past medical history of hypertension, hyperlipidemia, hypothyroidism, diabetes mellitus type 2, generalized anxiety disorder is an okay for me to cancel echocardiogram ordered by Dr. Mckeon on ER 5, [place]. We have been asked to evaluate the patient for chest pain. Patient states that she developed chest tightness as well as nausea and had 1 episode of vomiting last night. She denies abdominal pain. She complains of muscle cramping in her legs. She does have noted tenderness in the abdomen. Symptoms were sudden onset yesterday. She states she occasionally has chest tightness that was sporadic. She also complains of trouble with balance. Blood pressure 128/73, heart rate in the 60s, pulse ox 100% on room air. Patient seen today in the emergency center waiting for bed on the observation unit. -EKG: Sinus rhythm with poor R wave progression. -Chest x-ray: No acute process. -CT brain: No acute process. -Laboratory studies: CBC unremarkable. CMP unremarkable except for BUN of 23, glucose 191. Troponin negative x 2. -Home cardiac medications: Farxiga 10 mg daily, losartan hydrochlorothiazide 100-25 mg daily, rosuvastatin 40 mg daily, patient is also on Ozempic and levothyroxine. Review Of Systems: At the time of my exam: CONSTITUTIONAL: Denies fever or chills. HEENT: Denies blurred vision, vision changes, or eye pain. Denies hemoptysis CARDIOVASCULAR: Denies chest pain. Denies orthopnea. Denies PND. Denies palpitations RESPIRATORY: Denies shortness of breath. GASTROINTESTINAL: Denies abdominal pain. Denies nausea or vomiting. HEMATOLOGIC: Denies bleeding disorders. GENITOURINARY: Denies any blood in urine. SKIN: Denies puritis. Denies rash. Physical examination: Gen: This is 60-year-old female in no acute distress. VS: reviewed HEENT: Head is atraumatic, normocephalic. Pupils equal, round. Sclerae is anic teric. NECK: Supple. No JVD. LUNGS: Clear to auscultation. No wheezes or rhonchi. No intercostal retractions. HEART: Regular rate and rhythm. No murmur. ABDOMEN: Soft No tenderness. EXTREMITIES: No pedal edema. No calf tenderness. NEUROLOGICAL: Patient is awake, alert and oriented x3. Assessment: Atypical chest pain, chest pain is of abdominal etiology Nausea and vomiting Hypertension Hyperlipidemia Hypothyroidism Diabetes mellitus type 2 Plan: Resume patient's home cardiac medications No need to obtain echocardiogram at this time No further cardiac workup planned at this time Patient is cleared for discharge from a cardiology perspective. Patient may follow-up in the office in 1 [address] Howe. Thank you kindly for this consultation. Nurse practitioner note has been reviewed, I agree with documented findings and plan of care. Patient was seen and examined. Past Medical History Past Medical History: Asthma, Cancer, Diabetes Mellitus, GERD/Reflux, Musculoskeletal Disorder, Thyroid Disorder Additional Past Medical History / Comment(s): ganglion cyst right foot that causes pain, hx. breast [id number] & 1997-surg. & radiation, thyroid cancer 1998 & 2012 covid 01/2025 History of Any Multi-Drug Resistant Organisms: None Reported Past Surgical History: Appendectomy, Breast Surgery, Hysterectomy Additional Past Surgical History / Comment(s): thyroidectomy & parathyroidectomy, bilateral breast lumpectomies, skin lesions removed, ALICIA/BSO Past Anesthesia/Blood Transfusion Reactions: Previous Problems w/ Anesthesia Additional Past Anesthesia/Blood Transfusion Reaction / Comment(s): slow to wake up Past Psychological History: Anxiety, Depression Smoking Status: Never smoker Past Alcohol Use History: None Reported Past Drug Use History: None Reported - Past Family History Mother Family Medical History: No Reported History Medications and Allergies Home Medications Medication Instructions Recorded Confirmed Type Acetaminophen [Tylenol Extra 1,000 mg PO Q6H PRN 02/15/17 02/17/25 History Strength] Dapagliflozin Propanediol [Farxiga] 10 mg PO DAILY 02/15/17 02/17/25 History Sertraline HCl [Zoloft] 200 mg PO HS 02/15/17 02/17/25 History metFORMIN HCL [Glucophage] 500 mg PO BID 02/15/17 02/17/25 History ALPRAZolam [Xanax] 0.5 mg PO BID PRN 02/17/25 02/17/25 History Calcium W/Vitamin D3 1800mg 1 tab PO DAILY 02/17/25 02/17/25 History Cetirizine HCl [Zyrtec] 10 mg PO DAILY 02/17/25 02/17/25 History Insulin Degludec [Tresiba 32 units SQ DAILY 02/17/25 02/17/25 History Flextouch U-200 Pen] Levothyroxine Sodium [Synthroid] 175 mcg PO DAILY 02/17/25 02/17/25 History Losartan/Hydrochlorothiazide 1 tab PO DAILY 02/17/25 02/17/25 History [Losartan-Hctz 100-25 mg Tab] Meloxicam [Mobic] 15 mg PO DAILY 02/17/25 02/17/25 History Rosuvastatin Calcium [Crestor] 40 mg PO DAILY 02/17/25 02/17/25 History Semaglutide [Ozempic] 2 mg SQ MO 02/17/25 02/17/25 History traZODone HCL [Desyrel] 100 mg PO HS 02/17/25 02/17/25 History Allergies Allergy/AdvReac Type Severity Reaction Status Date / Time No Known Allergies Allergy Verified 02/17/25 07:57 Physical Exam Vitals: Vital Signs Temp Pulse Resp BP Pulse Ox 02/17/25 06:46 66 18 139/70 97 02/17/25 06:31 66 17 139/70 97 02/17/25 06:01 67 18 138/73 97 02/17/25 04:53 97.9 F 74 16 121/83 97 Intake and Output 02/16/25 02/17/25 02/17/25 22:59 06:59 14:59 Other: Weight 87.997 kg Results 02/17/25 05:19 02/17/25 05:19 Cardiac Enzymes 02/17/25 02/17/25 Range/Units 05:19 05:19 AST 29 (14-36) U/L Troponin I <0.012 (0.000-0.034) ng/mL Coagulation 02/17/25 Range/Units 05:19 PT 10.2 (10.0-12.5) sec APTT 22.5 (22.0-30.0) sec CBC 02/17/25 Range/Units 05:19 WBC 7.90 (4.50-10.00) 10*3/uL RBC 4.48 (4.10-5.20) 10*6/uL Hgb 12.7 (12.0-15.0) g/dL Hct 37.4 (37.2-46.3) % Plt Count 232 (140-440) 10*3/uL Comprehensive Metabolic Panel 02/17/25 Range/Units 05:19 Sodium 140 (137-145) mmol/L Potassium 4.4 (3.5-5.1) mmol/L Chloride 102 (98-107) mmol/L Carbon Dioxide 23 (22-30) mmol/L BUN 23 H (7-17) mg/dL Creatinine 0.75 (0.52-1.04) mg/dL Glucose 191 H (74-99) mg/dL Calcium 8.8 (8.4-10.2) mg/dL AST 29 (14-36) U/L ALT 27 (4-34) U/L Alkaline Phosphatase 62 (38-126) U/L Total Protein 7.0 (6.3-8.2) g/dL Albumin 4.3 (3.5-5.0) g/dL Current Medications Generic Name Dose Route Start Last Admin Trade Name Freq PRN Reason Stop Dose Admin Acetaminophen 650 mg 02/17/25 06:50 Acetaminophen Tab 325 Mg Tab PO Q6HR PRN Mild Pain or Fever > 100.5 Atorvastatin Calcium 80 mg 02/17/25 09:00 Atorvastatin 80 Mg Tab PO DAILY [facility] Calcium Carbonate 1 each 02/17/25 09:00 Calcium Carb-Vit D 500 Mg-5 Mcg Tab PO DAILY EKTA HCTZ/Losartan Potassium 2 each 02/17/25 09:00 Losartan-Hctz 50-12.5 Mg 1 Each Tab PO DAILY [facility] Levothyroxine Sodium 176 mcg 02/17/25 09:00 Levothyroxine 88 Mcg Tab PO DAILY [facility] Loratadine 10 mg 02/17/25 09:00 Loratadine 10 Mg Tab PO DAILY EKTA Meloxicam 15 mg 02/17/25 09:00 Meloxicam 7.5 Mg Tab PO DAILY EKTA Naloxone HCl 0.2 mg 02/17/25 06:50 Naloxone 0.4 Mg/Ml 1 Ml Vial IV Q2M PRN Opioid Reversal Sertraline HCl 200 mg 02/17/25 21:00 Sertraline 100 Mg Tab PO HS EKTA Trazodone HCl 100 mg 02/17/25 21:00 Trazodone Hcl 100 Mg Tab PO HS EKTA Intake and Output 02/16/25 02/17/25 02/17/25 22:59 06:59 14:59 Other: Weight 87.997 kg 02/17/25 05:19 02/17/25 05:19
[2025-02-17] MEDS: CLOPIDOGREL 75 MG TAB PO SCH (15:16)
--- NOTE | 2025-02-17 15:40 | P.CNNES ---
<Earnest Fishman - Last Filed: 02/17/25 15:33> History of Present Illness Consult date: 02/17/25 Requesting physician: Gregoria Lopez Reason for Consult: history of left sided weakness History of Present Illness: Patient is a 60-year-old female with diabetes mellitus, GERD, thyroid cancer s/p prior thyroidectomy and parathyroidectomy presented to the ED with weakness. Patient reported that yesterday afternoon around 12:30pm after spending time with her grandchildren she began to feel not well and felt that she had decreased strength in the left side of her body. She also experienced some cramps of her bilateral lower extremities. She did have bowel and bladder incontinence. Associated with that she had intermittent chest tightness over the past 3 to 4 days which is nonradiating. Patient seen today under neurological consultation. At the time of this interview the patient mentioned not being able to walk to go to the restroom a f ew minutes ago. She feels that her legs are weak. She denies dizziness, lightheadedness. She does report a history of seizure that was 40 years ago.She does not remember what medication she was treated with at the time. She is not currently following up with a neurologist and has not had seizures since then. Is not on any antiseizure medications. Denies past history of stroke. Denies family history of stroke. Patient seen today under neurological consultation. Patient is right handed. Patient has long standing controlled diabetes for over 10 years. Vital signs are within normal limits. Glucose 191. Brain CT shows no acute intracranial hemorrhage or midline shift, There is moderate nonspecific white matter changes with favor productive of chronic small vessel ischemic change and the patient of this age, other etiologies including more acute/subacute stroke cannot entirely explain without prior comparison Past Medical History Past Medical History: Asthma, Cancer, Diabetes Mellitus, GERD/Reflux, Musculoskeletal Disorder, Thyroid Disorder Additional Past Medical History / Comment(s): ganglion cyst right foot that causes pain, hx. breast [id number] & 1997-surg. & radiation, thyroid cancer 1998 & 2012 covid 01/2025 History of Any Multi-Drug Resistant Organisms: None Reported Past Surgical History: Appendectomy, Breast Surgery, Hysterectomy Additional Past Surgical History / Comment(s): thyroidectomy & parathyroidectomy, bilateral breast lumpectomies, skin lesions removed, ALICIA/BSO Past Anesthesia/Blood Transfusion Reactions: Previous Problems w/ Anesthesia Additional Past Anesthesia/Blood Transfusion Reaction / Comment(s): slow to wake up Past Psychological History: Anxiety, Depression Smoking Status: Never smoker Past Alcohol Use History: None Reported Past Drug Use History: None Reported - Past Family History Mother Family Medical History: No Reported History Medications and Allergies Home Medications Medication Instructions Recorded Confirmed Type Acetaminophen [Tylenol Extra 1,000 mg PO Q6H PRN 02/15/17 02/17/25 History Strength] Dapagliflozin Propanediol [Farxiga] 10 mg PO DAILY 02/15/17 02/17/25 History Sertraline HCl [Zoloft] 200 mg PO HS 02/15/17 02/17/25 History metFORMIN HCL [Glucophage] 500 mg PO BID 02/15/17 02/17/25 History ALPRAZolam [Xanax] 0.5 mg PO BID PRN 02/17/25 02/17/25 History Calcium W/Vitamin D3 1800mg 1 tab PO DAILY 02/17/25 02/17/25 History Cetirizine HCl [Zyrtec] 10 mg PO DAILY 02/17/25 02/17/25 History Insulin Degludec [Tresiba 32 units SQ DAILY 02/17/25 02/17/25 History Flextouch U-200 Pen] Levothyroxine Sodium [Synthroid] 175 mcg PO DAILY 02/17/25 02/17/25 History Losartan/Hydrochlorothiazide 1 tab PO DAILY 02/17/25 02/17/25 History [Losartan-Hctz 100-25 mg Tab] Meloxicam [Mobic] 15 mg PO DAILY 02/17/25 02/17/25 History Rosuvastatin Calcium [Crestor] 40 mg PO DAILY 02/17/25 02/17/25 History Semaglutide [Ozempic] 2 mg SQ MO 02/17/25 02/17/25 History traZODone HCL [Desyrel] 100 mg PO HS 02/17/25 02/17/25 History Allergies Allergy/AdvReac Type Severity Reaction Status Date / Time No Known Allergies Allergy Verified 02/17/25 07:57 Physical Examination - Vital Signs Vital Signs: Vital Signs Temp Pulse Resp BP Pulse Ox 02/17/25 08:40 65 128/73 100 02/17/25 06:46 66 18 139/70 97 02/17/25 06:31 66 17 139/70 97 02/17/25 06:01 67 18 138/73 97 02/17/25 04:53 97.9 F 74 16 121/83 97 Intake and Output 02/16/25 02/17/25 02/17/25 22:59 06:59 14:59 Other: Weight 87.997 kg General: no distress, lying in bed, No peripheral edema. Neuro: Patient is awake alert and oriented x 3. Visual harris are full to confrontation. Extraocular movements intact no nystagmus no facial weakness. Face is symmetric Motor: The strength over the right side is 4 out of 5. The left side is 3/5. Motor drift on left UE Deep tendon reflexes are symmetric 1 at the biceps, brachioradialis, knees and plantars are normal Sensory to touch is diminished on left side Finger to nose testing normal on b/l UE, heel to pond test normal on right LE, unable to perform with left LE Results - Laboratory Findings CBC and BMP: 02/17/25 05:19 02/17/25 05:19 Abnormal Lab Findings: Abnormal Labs 02/17/25 02/17/25 05:19 05:19 MPV 8.7 L BUN 23 H Glucose 191 H Assessment and Plan Assessment: Acute ischemic stroke Diabetes mellitus Hypothyroidism, secondary to thyroidectomy due to cancer Hypertension Plan: NIH score [address] shows no acute intracranial hemorrhage or midline shift, There is moderate nonspecific white matter changes with favor productive of chronic small vessel ischemic change and the patient of this age, other etiologies including more acute/subacute stroke cannot entirely explain without prior comparison Carotid doppler study showed no hemodynamically significant stenosis bilaterally Aspirin 325 mg p.o. once in the ED Continue home med atorvastatin 80 mg p.o. daily Start aspirin 81 mg p.o. daily, Plavix 75 mg PO daily for 21 days. Then stop Plavix and continue Aspirin indefinitely Home meds Farxiga 10 mg p.o. daily and Hyzaar to each p.o. daily, levothyroxine 175 mcg p.o. daily resumed Obtain TSH, A1c, vitamin B12, folate, lipid panel, ammonia level Obtain MR brain, echocardiogram DVT prophylaxis : Enoxaparin 40 mg SQ daily Dictation was produced using [employer] software. please excuse any grammatical, word or spelling errors. Earnest Fishman MD PGY-2 IM <Carli Maki - Last Filed: 02/17/25 21:15> History of Present Illness History of Present Illness: Patient is a 60-year-old right-handed female was playing with her grandchildren when she developed left-sided weakness, not able to walk, felt like will fall. Patient states symptoms started at around 12:30 PM when she was walking in the [employer] information [employer] and felt heaviness in the left arm and left leg. There was no dizziness or lightheadedness. No history of stroke or TIA. Patient has history of seizure 40 years ago , not treated. Patient has history of diabetes for 15 to 20 years, which is controlled. She has hypertension and hyperlipidemia. Patient denies any tobacco or alcohol use. Patient does not take any antiplatelet medication at home. Physical Examination - Vital Signs Vital Signs: Vital Signs Temp Pulse Resp BP Pulse Ox 02/17/25 19:36 84 18 110/69 98 02/17/25 18:25 97.8 F 79 18 119/73 98 02/17/25 15:17 82 18 119/51 98 02/17/25 12:01 74 16 121/70 98 02/17/25 08:40 65 128/73 100 02/17/25 06:46 66 18 139/70 97 02/17/25 06:31 66 17 139/70 97 02/17/25 06:01 67 18 138/73 97 02/17/25 04:53 97.9 F 74 16 121/83 97 Intake and Output 02/17/25 02/17/25 02/17/25 06:59 14:59 22:59 Other: Weight 87.997 kg On my examination, patient's mental status, speech and language functions and cranial nerves are normal. On muscle strength testing, patient has left pronator drift about 5 to 10 degree. It does not hit the bed. Patient's left leg is very weak, and it hits the bed. Deep tendon reflexes are symmetric, 2 at the biceps, 2 brachioradialis, 3 at the knees, 2 ankles and plantars withdrawal on the right, up on the left. Sensory touch is equal. No ataxia. Results - Laboratory Findings CBC and BMP: 02/17/25 05:19 02/17/25 05:19 Abnormal Lab Findings: Abnormal Labs 02/17/25 02/17/2525 05:19 05:19 11:35 MPV 8.7 L BUN 23 H Glucose 191 H Hemoglobin A1c 8.2 H TSH 02/17/25 11:35 MPV BUN Glucose Hemoglobin A1c TSH 0.165 L Assessment and Plan Plan: Patient's current NIH stroke scale is 3. She is not a candidate for TNK, as she came outside the window. No LVO. Carotid Doppler revealed no hemodynamically significant stenosis on either side. Antegrade flow in both vertebral arteries. A lymph node was present. We will defer to IM to address the lymph node. Recommend permissive hypertension for next 24 hours. I was present for the ibarra and critical components of this encounter and I agree with the assessment and plan as documented. Time with Patient: Greater than 30
[2025-02-17] MEDS: SERTRALINE 100 MG TAB PO SCH (20:46)
[2025-02-17] MEDS: ALPRAZolam 0.5 MG TAB PO PRN (20:51)
[2025-02-17 21:33] LABS: Cholesterol 171.00 mg/dL (0.00-200.00); HDL Cholesterol 56.50 mg/dL (40.00-60.00); LDL Cholesterol,Calculated 84.7 mg/dL (0.0-131.0); Triglycerides 149.00 mg/dL (0.00-149.00); VLDL Calculation 29.80 mg/dL (5.00-40.00); Vitamin B12 407.0 pg/mL (200.0-944.0)
[2025-02-18] MEDS ORDERED: INSULIN GLARGINE (LANTUS) 100 UNIT/ML SYR SQ SCH (07:00)
[2025-02-18 07:24] LABS: Glucose,Whole Blood 183 mg/dL (70-110)
[2025-02-18] MEDS: INSULIN GLARGINE (LANTUS) 100 UNIT/ML SYR SQ SCH (07:33)
[2025-02-18] MEDS: DAPAGLIFLOZIN PROPANEDIOL 10 MG TABLET PO SCH (08:22)
[2025-02-18] MEDS: ENOXAPARIN 40 MG/0.4 ML SYRINGE SQ SCH (08:22)
[2025-02-18] MEDS: ASPIRIN 81 MG PO SCH (08:22)
[2025-02-18 08:32] LABS: Basophils # (A) 0.05 X 10*3/uL (0.00-0.10); Basophils % (A) 0.6 %; Eosinophils # (A) 0.27 X 10*3/uL (0.04-0.35); Eosinophils % (A) 3.2 %; HCT 41.3 % (37.2-46.3); HGB 13.2 g/dL (12.0-15.0); Immature Grans, Automated 0.40 %; Lymphocytes # (A) 2.80 X 10*3/uL (0.90-5.00); Lymphocytes % (A) 33.3 %; MCH 27.0 pg (27.0-32.0); MCHC 32.0 g/dL (32.0-37.0); MCV 84.6 FL (80.0-97.0); Monocytes # (A) 0.64 X 10*3/uL (0.20-1.00); Monocytes % (A) 7.6 %; NRBC Per 100 WBC 0 X 10*3/uL (0.00-0.01); Neutrophils # (A) 4.61 X 10*3/uL (1.80-7.70); Neutrophils % (A) 54.9 %; Platelet Count 242 X 10*3/uL (140-440); RBC 4.88 X 10*6/uL (4.10-5.20); RDW 13.0 % (11.5-14.5); WBC 8.40 X 10*3/uL (4.50-10.00)
[2025-02-18 08:48] LABS: Anion Gap 13.80 mmol/L (4.00-12.00); BUN/Creat Ratio 19.90 Ratio (12.00-20.00); Blood Urea Nitrogen 19.9 mg/dL (9.0-27.0); Calcium 9.0 mg/dL (8.7-10.3); Carbon Dioxide 25.2 mmol/L (21.6-31.8); Chloride 100 mmol/L (96-109); Glucose 182 mg/dL (70-110); Potassium 4.0 mmol/L (3.5-5.5); Sodium 139 mmol/L (135-145)
[2025-02-18] MEDS ORDERED: DEXTROSE 50% SYRINGE 50 ML IVP PRN ×2 (09:18)
--- NOTE | 2025-02-18 09:21 | P.PN ---
Subjective This is a pleasant 62 years old female with past medical history of multiple medical problems as below. Patient states she could not walk and she has weakness in the left hand and she felt this morning. The symptoms has been going on for last 2 days. She states that she has left side weakness both arms and leg, her left arm more than her left leg. No tingling or numbness Headache or dizziness but complains from little pressure behind her left eye without change in vision She vomited once but no current more vomiting no abdominal pain or diarrhea. No dysuria or urgency. She had some chest pain in the middle going to the back felt like pressure nonspecific, currently gone now. No smoking alcohol or illicit drugs. She is no fever. Blood pressure stable. Labs including CBC, BMP, LFT and INR were unremarkable. Troponin x 2 were negative less than 0.012. EKG showing sinus rhythm at [address]-T changes. Chest x-ray showing no acute cardiopulmonary process. Reviewed chest x-ray by myself and agree. CT of the brain showing moderate nonspecific white matter changes which favor chronic small vessel ischemic changes. However acute/subacute stroke cannot be ruled out. Patient states she is not taking any blood thinners or aspirin at home. 02/18 Patient still has left hemiparesis Her left upper extremity is better still have weakness in the left hand has difficulty grabbing things, her left leg severely weak still the same as yesterday No other new complaint no headache or dizziness. Vitals and labs look stable Thyroid function looks normal Free T4 at 1.9. B12 is 407 and folate 16. Will have glucose controlled but we will start sliding scale, will lower the dose of her long-acting insulin 32 units and to have 16 units because we are not sure if patient will be able to eat today. We will monitor sugar and follow-up results Neurology service on the case She is on aspirin and Plavix Carotid duplex was unremarkable. Echocardiogram is pending Review of systems CONSTITUTIONAL: No fever, no malaise, no fatigue. HEENT: No recent visual problems or hearing problems. Denied any sore throat. CARDIOVASCULAR: No orthopnea, PND, no palpitations, no syncope. PULMONARY: No shortness of breath, no cough, no hemoptysis. GENITOURINARY: Denies any burning micturition, frequency, or urgency. MUSCULOSKELETAL/RHEUMATOLOGICAL: Denies any joint pain, swelling, or any muscle pain. ENDOCRINE: Denies any polyuria or polydipsia. Active Medications Generic Name Dose Route Start Last Admin Trade Name Freq PRN Reason Stop Dose Admin Acetaminophen 650 mg 02/17/25 06:50 Acetaminophen Tab 325 Mg Tab PO Q6HR PRN Mild Pain or Fever > 100.5 Alprazolam 0.5 mg 02/17/25 10:27 02/17/25 20:51 Alprazolam 0.5 Mg Tab PO 0.5 mg BID PRN Administration Anxiety Aspirin 81 mg 02/18/25 09:00 02/18/25 08:22 Aspirin 81 Mg PO 81 mg DAILY EKTA Administration Atorvastatin Calcium 80 mg 02/17/25 09:00 02/18/25 08:21 Atorvastatin 80 Mg Tab PO 80 mg DAILY EKTA Administration Calcium Carbonate 1 each 02/17/25 09:00 02/18/25 08:21 Calcium Carb-Vit D 500 Mg-5 Mcg Tab PO 1 each DAILY EKTA Administration Clopidogrel Bisulfate 75 mg 02/17/25 15:00 02/18/25 08:21 Clopidogrel 75 Mg Tab PO 75 mg DAILY EKTA Administration Dapagliflozin 10 mg 02/18/25 09:00 02/18/25 08:22 Dapagliflozin Propanediol 10 Mg Tablet PO 10 mg DAILY EKTA Administration Dextrose/Water 25 ml 02/18/25 09:18 Dextrose 50% Syringe 50 Ml IVP PER PROTOCOL PRN Hypoglycemia Protocol Dextrose/Water 50 ml 02/18/25 09:18 Dextrose 50% Syringe 50 Ml IVP PER PROTOCOL PRN Hypoglycemia Protocol Enoxaparin Sodium 40 mg 02/18/25 09:00 02/18/25 08:22 Enoxaparin 40 Mg/0.4 Ml Syringe SQ Not Given DAILY EKTA HCTZ/Losartan Potassium 2 each 02/17/25 09:00 02/18/25 08:21 Losartan-Hctz 50-12.5 Mg 1 Each Tab PO 2 each DAILY EKTA Administration Insulin Glargine 16 unit 02/18/25 07:00 02/18/25 07:33 Insulin Glargine (Lantus) 100 Unit/Ml Syr SQ 6 unit DAILY@0700 EKTA Administration Insulin Human Lispro 0 unit 02/18/25 12:30 Insulin Lispro (Humalog) 100 Unit/Ml 10 Ml Vl SQ ACHS [facility] Protocol Levothyroxine Sodium 176 mcg 02/17/25 09:00 02/18/25 08:22 Levothyroxine 88 Mcg Tab PO 176 mcg DAILY EKTA Administration Loratadine 10 mg 02/17/25 09:00 02/18/25 08:21 Loratadine 10 Mg Tab PO 10 mg DAILY EKTA Administration Naloxone HCl 0.2 mg 02/17/25 06:50 Naloxone 0.4 Mg/Ml 1 Ml Vial IV Q2M PRN Opioid Reversal Sertraline HCl 200 mg 02/17/25 21:00 02/17/25 20:46 Sertraline 100 Mg Tab PO 200 mg HS EKTA Administration Trazodone HCl 100 mg 02/17/25 21:00 02/17/25 20:46 Trazodone Hcl 100 Mg Tab PO 100 mg HS EKTA Administration Objective - Vital Signs Vital signs: Vital Signs Temp 98.1 F 02/18/25 08:20 Pulse 81 02/18/25 08:20 Resp 18 02/18/25 08:20 BP 115/68 02/18/25 08:20 Pulse Ox 98 02/18/25 08:20 FiO2 - Exam -GENERAL: The patient is alert and oriented x3, not in any acute distress. Well developed, well nourished. Obese HEENT: Pupils are round and equally reacting to light. EOMI. No scleral icterus. No conjunctival pallor. Normocephalic, atraumatic. No pharyngeal erythema. No thyromegaly. CARDIOVASCULAR: S1 and S2 present. No murmurs, rubs, or gallops. PULMONARY: Chest is clear to auscultation, no wheezing , no crackles. ABDOMEN: Soft, nontender, nondistended, normoactive bowel sounds. No palpable organomegaly. MUSCULOSKELETAL: No joint swelling or deformity. EXTREMITIES: No cyanosis, clubbing, or pedal edema. -NEUROLOGICAL: Cranial nerves are grossly intact. Left arm, left leg are weak. Numbness are absent. Meningeal signs labs SKIN: No rashes. no petechiae. - Labs CBC & Chem 7: 02/18/25 02:44 02/18/25 02:44 Labs: Abnormal Lab Results - Last 24 Hours (Table) 02/17/25 02/17/25 02/18/25 Range/Units 11:35 11:35 02:44 MPV 9.0 L (9.5-12.2) FL Anion Gap (4.00-12.00) mmol/L Glucose (70-110) mg/dL POC Glucose (mg/dL) (70-110) mg/dL Hemoglobin A1c 8.2 H (<=6.0) % TSH 0.165 L (0.465-4.680) mIU/L 02/18/25 02/18/25 Range/Units 02:44 07:23 MPV (9.5-12.2) FL Anion Gap 13.80 H (4.00-12.00) mmol/L Glucose 182 H (70-110) mg/dL POC Glucose (mg/dL) 183 H (70-110) mg/dL Hemoglobin A1c (<=6.0) % TSH (0.465-4.680) mIU/L Assessment and Plan Assessment: Acute left hemiparesis suspicious for acute stroke Central chest pain mild and improved Obesity with BMI of 32 Diabetes mellitus Hyperlipidemia Hypothyroidism History of asthma History of depression anxiety Plan: Start aspirin 325 mg x 1 and then continue 81 mg Control blood pressure. Continue monitoring insulin Check carotid duplex and echocardiogram Neurology and cardiology team consult Labs and medication were reviewed.. Continue same treatment. Continue with symptomatic treatment. Resume home medication. Monitor labs and vitals. DVT and GI prophylaxis. Further recommendations as per clinical course of the patient DVT prophylaxis: Subcutaneous heparin GI Prophylaxis: Pepcid PT/OT: Pending Speech and swallow evaluation Prognosis is guarded
--- NOTE | 2025-02-18 10:03 | P.PN ---
Subjective Progress Note Date: 02/18/25 Principal diagnosis: Patient seen and examined at bedside today. Patient reports having periorbital cellulitis in January. Today she reports blurry vision, ania right eye. Additionally , she reports having history of multiple tick bites. Patient denies any pain anywhere. Denies any significant neck pain or lower back pain. Just left leg is weak. While examining patient she got very short of breath with SpO2 down to 70s and reported chest pain. Her symptoms resolved shortly after she laid down and oxygen was supplemented. Vital signs within normal limits Glucose 183, A1c 8.2, ammonia <9, triglycerides 149, cholesterol 171, LDL 84.7, VLDL 29.8, HDL 56.5, vitamin B12 407, folate 16.5, TSH 0.165, free T4 1.98 Carotid Doppler shows no hemodynamically significant stenosis bilaterally, subcentimeter nodular area inferior and lateral to the right carotid bifurcation may represent a lymph node Objective - Vital Signs Vital signs: Vital Signs Temp 98.1 F 02/18/25 08:20 Pulse 81 02/18/25 08:20 Resp 18 02/18/25 08:20 BP 115/68 02/18/25 08:20 Pulse Ox 98 02/18/25 08:20 FiO2 - Exam General: no distress, lying in bed, No peripheral edema. Neuro: Patient is awake alert and oriented x 3. Visual harris are full to confrontation. Extraocular movements intact no nystagmus no facial weakness. Face is symmetric. Right eye blurry vision. Motor: There is no pronator drift in the upper limbs. The biceps, triceps and deltoids are normal bilaterally. The right physical therapy aide is normal, but the left physical therapy aide is somewhat limited because of decreased range of motion of the fingers. When I tried to manually flex her fingers, it started hurting, almost like arthralgia or joint stiffness. In the lower limbs the strength is (right/left) hip flexion 4/3 3-, ankle dorsiflexion 5/1-2. Deep tendon reflexes are symmetric 2 at the biceps, 2 brachioradialis, 3 at the knees, 2 ankles and plantars downgoing on the right, and very clearly upgoing on the left. Sensory to touch is diminished on left side Finger to nose testing normal on b/l UE, heel to pond test normal on right LE, unable to perform with left LE - Labs CBC & Chem 7: 02/18/25 02:44 02/18/25 02:44 Labs: Abnormal Lab Results - Last 24 Hours (Table) 02/17/25 02/17/25 02/18/25 Range/Units 11:35 11:35 02:44 MPV 9.0 L (9.5-12.2) FL Anion Gap (4.00-12.00) mmol/L Glucose (70-110) mg/dL POC Glucose (mg/dL) (70-110) mg/dL Hemoglobin A1c 8.2 H (<=6.0) % TSH 0.165 L (0.465-4.680) mIU/L 02/18/25 02/18/25 Range/Units 02:44 07:23 MPV (9.5-12.2) FL Anion Gap 13.80 H (4.00-12.00) mmol/L Glucose 182 H (70-110) mg/dL POC Glucose (mg/dL) 183 H (70-110) mg/dL Hemoglobin A1c (<=6.0) % TSH (0.465-4.680) mIU/L Assessment and Plan Assessment: * Possible acute stroke, with left sided weakness, leg > arm, but not involving the face. MRI ruled out acute ischemic stroke. Patient's left leg weakness and left hand stiffness is of uncertain cause. She denies any significant neck or lower back pain. * Diabetes mellitus, not well-controlled * Hypothyroidism, secondary to thyroidectomy due to cancer * Hypertension * History of tick bites Plan: MRI of the brain revealed no evidence of acute ischemic stroke. Exact cause of left leg weakness is uncertain. Rule out Lyme disease. Rule out lumbosacral plexopathy, but patient denies any radicular pain. Brain CT shows no acute intracranial hemorrhage or midline shift, There is moderate nonspecific white matter changes with favor productive of chronic small vessel ischemic change and the patient of this age, other etiologies including more acute/subacute stroke cannot entirely explain without prior comparison Carotid Doppler shows no hemodynamically significant stenosis bilaterally, subcentimeter nodular area inferior and lateral to the right carotid bifurcation may represent a lymph node. We will defer to IM to address the lymph node. Echocardiogram shows EF 55 to 60%, preserved LV size and function, no pericardial effusion, very mild aortic stenosis, 2+ aortic regurgitation Brain MRI shows no evidence of intracranial mass or acute/subacute infarct, moderate nonspecific white matter changes etiologies include small vessel ischemic disease, demyelinating disease, chronic migraines, vasculitis, Lyme disease. On my review, there is no evidence of any acute stroke. There is bila teral symmetric white matter disease seen. Glucose 183, A1c 8.2, ammonia <9, triglycerides 149, cholesterol 171, LDL 84.7, VLDL 29.8, HDL 56.5, vitamin B12 407, folate 16.5, TSH 0.165, free T4 1.98 Recommend optimize control of diabetes to target A1c <7.0. Aspirin 325 mg p.o. once in the ED Continue home med atorvastatin 80 mg p.o. daily Continue aspirin 81 mg p.o. daily, Plavix 75 mg PO daily for 21 days. Then stop Plavix and continue Aspirin indefinitely Home meds Farxiga 10 mg p.o. daily and Hyzaar to each p.o. daily, levothyroxine 175 mcg p.o. daily resumed Obtain DERECK, ESR, CRP, Lyme testing and creatine kinase Blood pressure is well-controlled. DVT prophylaxis : Enoxaparin 40 mg SQ daily Dictation was produced using [employer] dictation software. please excuse any grammatical, word or spelling errors. Earnest Fishman MD PGY-2 IM I was present for the ibarra and critical components of this encounter and I agree with the assessment and plan as documented above and have made appropriate marly nges in the note. Carli Maki MD
--- NOTE | 2025-02-18 10:24 | MR ---
INDICATION: Patient age:Female; 60 years old; Reason for study: CVA; PHH. COMPARISON: CT brain 02/17/2025. TECHNIQUE: Multi planar, multi sequence imaging was performed through the brain without the administr ation of intravenous contrast. FINDINGS: The jasso-white junctions, ventricular system, basal cisterns appear unremarkable. Appropriate cerebra l parenchymal volume. Diffusion-weighted imaging shows no evidence of restricted diffusion to suggest acute/subacute infarct. Intracranial arterial flow voids are maintained. Midline structures show no abnormality. Patchy and confluent areas of high T2/FLAIR signal intensity are seen within the periven tricular and subcortical white matter. The susceptibility weighted images do not reveal any evidence for micro-hemorrhage. The bone marrow signal is within normal limits. The globes are unremarkable. Scattered mild paranasa l sinus disease. IMPRESSION: 1. No evidence of intracranial mass or acute/subacute infarct. 2. Moderate nonspecific white matter changes. Etiologies include small vessel ischemic disease, demye linating disease, chronic migraines, vasculitis, Lyme disease and other considerations. [facility], , 02/18/2025 10:22 AM
--- NOTE | 2025-02-18 10:36 | CA ---
Transthoracic Echo Report Name: Meche Paul Age: 60 Gender: F : 1965 Exam Date: 02/17/2025 13:24 Exam Location: [facility] Ht (in): 65 Wt (lb): 194 Ordering Physician: Grover Burrell MD Attending/Referring Phys: [id number], Indra Parimutuel Ticket Seller Ashwini Aj, ASH Procedure CPT: Indications: Chest Pain Cardiac Hx: Technical Quality: Fair Contrast 1: Total Dose (mL): Contrast 2: Total Dose (mL): MEASUREMENTS (Male / Female) Normal Values 2D ECHO LV Diastolic Diameter PLAX 4.8 cm 4.2 - 5.9 / 3.9 - 5.3 cm LV Systolic Diameter PLAX 3.0 cm IVS Diastolic Thickness 1.3 cm 0.6 - 1.0 / 0.6 - 0.9 cm LVPW Diastolic Thickness 0.9 cm 0.6 - 1.0 / 0.6 - 0.9 cm LV Relative Wall Thickness 0.5 RV Internal Dim ED PLAX 2.2 cm LVOT Diameter 2.0 cm LA Systolic Diameter LX 3.9 cm 3.0 - 4.0 / 2.7 - 3.8 cm LV Diastolic Volume MOD BP 58.6 cm??? 67 - 155 / 56 - 104 cm??? LV Systolic Volume MOD BP 21.9 cm??? 22 - 58 / 19 - 49 cm??? LV Ejection Fraction MOD BP 62.7 % >= 55 % LV Cardiac Index MOD BP 1294.9 cm???/min???m??? LV Diastolic Volume MOD 4C 68.3 cm??? LV Systolic Volume MOD 4C 26.2 cm??? LV Ejection Fraction MOD 4C 61.7 % LV Cardiac Index MOD 4C 1486.6 cm???/min???m??? LV Diastolic Length 4C 7.5 cm LV Systolic Length 4C 6.7 cm LV Diastolic Volume MOD 2C 48.6 cm??? LV Systolic Volume MOD 2C 17.9 cm??? LV Ejection Fraction MOD 2C 63.1 % LV Cardiac Index MOD 2C 1081.4 cm???/min???m??? LV Diastolic Length 2C 7.2 cm LV Systolic Length 2C 6.3 cm LA Volume 44.4 cm??? 18 - 58 / 22 - 52 cm??? LA Volume Index 21.8 cm???/m??? 16 - 28 cm???/m??? M-MODE Aortic Root Diameter MM 2.8 cm LA Systolic Diameter MM 3.9 cm LA Ao Ratio MM 1.4 AV Cusp Separation MM 1.2 cm DOPPLER AV Peak Velocity 215.0 cm/s AV Peak Gradient 18.5 mmHg AV Mean Velocity 140.7 cm/s AV Mean Gradient 9.1 mmHg AV Velocity Time Integral 38.5 cm AI Peak Velocity 447.5 cm/s AI Peak Gradient 80.1 mmHg AI Pressure Half Time 741.9 ms LVOT Peak Velocity 123.8 cm/s LVOT Peak Gradient 6.1 mmHg LVOT Velocity Time Integral 24.5 cm LVOT Stroke Volume 76.0 cm??? LVOT Stroke Volume Index 38.9 ml/m??? LVOT Cardiac Index 2682.2 cm???/min???m??? AV Area Cont Eq vti 2.0 cm??? AV Area Cont Eq pk 1.8 cm??? MV Area PHT 2.8 cm??? Mitral E Point Velocity 68.7 cm/s Mitral A Point Velocity 90.5 cm/s Mitral E to A Ratio 0.8 MV Deceleration Time 274.6 ms FINDINGS Left Ventricle Left ventricular ejection fraction is estimated at 55-60%. Mildly increased septal wall thickness. Normal left ventricular systolic function with no obvious regional wall motion abnormalities. Left ventricular cavity size normal. Right Ventricle Normal right ventricular size and function. Unable to estimate the right ventricular systolic pressure. Right Atrium Normal right atrial size. Left Atrium Normal left atrial size. Mitral Valve Structurally normal mitral valve. Trace mitral regurgitation. No mitral stenosis. Aortic Valve Trileaflet aortic valve. Mild aortic stenosis with a peak gradient of 19mmHg and a mean gradient of 9 mmHg. [id number] aortic regurgitation. Thickened aortic valve. Tricuspid Valve Structurally normal tricuspid valve. Trace tricuspid regurgitation. No tricuspid stenosis. Pulmonic Valve Structurally normal pulmonic valve. Trace pulmonic regurgitation. No pulmonic stenosis. Pericardium No pericardial or pleural effusion. Aorta Normal size aortic root and proximal ascending aorta. CONCLUSIONS Reason: Chest pain Preserved LV size and function No pericardial effusion Very mild aortic stenosis 2+ aortic regurgitation Previewed by: Dr. Rai Howe MD (Electronically Signed) Final Date: 18 February 2025 10:36
[2025-02-18 12:22] LABS: Glucose,Whole Blood 141 mg/dL (70-110)
[2025-02-18] MEDS: INSULIN LISPRO (HumaLOG) 100 UNIT/ML 10 mL VL SQ SCH (12:28)
--- NOTE | 2025-02-18 13:32 | P.CONS ---
History of Present Illness - Reason for Consult Consult date: 02/18/25 Rehab recommendations - History of Present Illness Meche is a 60 year old, , who lives in a single story home, with 6 STFD. Prior to admission, pt was ambulating without an assistive device. Pt was independent for basic/advanced ADLs. Current driving: yes. 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 Support system: . Patient presented to [facility] ED on 02/17/25. She reported symptoms of difficulty walking, CALDERON, CP and weakness of left side for 2 days. Per records, labs including CBC, BMP, LFT and INR were unremarkable. Troponin x 2 were negative less than 0.012. EKG showing sinus rhythm at [address]-T changes. Chest x-ray showing no acute cardiopulmonary process. CT of the brain showing moderate nonspecific white matter changes which favor chronic smal l vessel ischemic changes; acute/subacute stroke cannot be ruled out. MRI brain with no evidence of intrcranial mass or acute/subacute infarct; moderate nonspecific white matter changes. Echo with EF 55-60%. Carotid doppler study showed no hemodynamically significant stenosis bilaterally Therapy evaluations pending. 02/18: Patient seen and examined resting in bed. Reports MRI brain was done ear lier this morning. Reports left sided weakness, difficulty with getting dressed and brushing teeth, but was able to complete both today 'with difficulty'. Denies any current CP, SOB and abdominal pain. Denies complaints with bowel and bladder. Review of Systems as above in subjective. Past Medical History Past Medical History: Asthma, Cancer, Diabetes Mellitus, GERD/Reflux, Musculoskeletal Disorder, Thyroid Disorder Additional Past Medical History / Comment(s): ganglion cyst right foot that causes pain, hx. breast [id number] & 1997-surg. & radiation, thyroid cancer 1998 & 2012 covid 01/2025 History of Any Multi-Drug Resistant Organisms: None Reported Past Surgical History: Appendectomy, Breast Surgery, Hysterectomy Additional Past Surgical History / Comment(s): thyroidectomy & parathyroidectomy, bilateral breast lumpectomies, skin lesions removed, ALICIA/BSO Past Anesthesia/Blood Transfusion Reactions: Previous Problems w/ Anesthesia Additional Past Anesthesia/Blood Transfusion Reaction / Comm: slow to wake up Past Psychological History: Anxiety, Depression Smoking Status: Never smoker Past Alcohol Use History: None Reported Past Drug Use History: None Reported - Past Family History Mother Family Medical History: No Reported History Medications and Allergies Home Medications Medication Instructions Recorded Confirmed Type Acetaminophen [Tylenol Extra 1,000 mg PO Q6H PRN 02/15/17 02/17/25 History Strength] Dapagliflozin Propanediol [Farxiga] 10 mg PO DAILY 02/15/17 02/17/25 History Sertraline HCl [Zoloft] 200 mg PO HS 02/15/17 02/17/25 History metFORMIN HCL [Glucophage] 500 mg PO BID 02/15/17 02/17/25 History ALPRAZolam [Xanax] 0.5 mg PO BID PRN 02/17/25 02/17/25 History Calcium W/Vitamin D3 1800mg 1 tab PO DAILY 02/17/25 02/17/25 History Cetirizine HCl [Zyrtec] 10 mg PO DAILY 02/17/25 02/17/25 History Insulin Degludec [Tresiba 32 units SQ DAILY 02/17/25 02/17/25 History Flextouch U-200 Pen] Levothyroxine Sodium [Synthroid] 175 mcg PO DAILY 02/17/25 02/17/25 History Losartan/Hydrochlorothiazide 1 tab PO DAILY 02/17/25 02/17/25 History [Losartan-Hctz 100-25 mg Tab] Meloxicam [Mobic] 15 mg PO DAILY 02/17/25 02/17/25 History Rosuvastatin Calcium [Crestor] 40 mg PO DAILY 02/17/25 02/17/25 History Semaglutide [Ozempic] 2 mg SQ MO 02/17/25 02/17/25 History traZODone HCL [Desyrel] 100 mg PO HS 02/17/25 02/17/25 History Allergies Allergy/AdvReac Type Severity Reaction Status Date / Time No Known Allergies Allergy Verified 02/17/25 07:57 Physical Exam Vitals: Vital Signs Temp Pulse Resp BP Pulse Ox 02/18/25 08:20 98.1 F 81 18 115/68 98 02/18/25 07:04 75 18 95/45 100 02/18/25 00:00 118/87 02/17/25 22:00 81 16 110/66 96 02/17/25 19:36 84 18 110/69 98 02/17/25 18:25 97.8 F 79 18 119/73 98 02/17/25 15:17 82 18 119/51 98 General: Well-developed, well-nourished, female, in no acute distress HEENT: NC/AT, external ears intact, hearing intact to conversational speech, Speech is droop Cardiovascular: B/L calves are supple, nontender, no cords, without peripheral edema, no cardiac distress Respiratory: Even and unlabored breathing on RA Abdomen: Soft, nontender, nondistended Musculoskeletal: ROM WFL EXCEPT: generalized weakness Neurological: Alert and oriented x 4. CN II-XII: slight left eye droop, difficulty with coordinating shoulder shrug Speech is clear MMT: difficulty with completing MMT due to poor effort; able to move all extremities to anti-gravity, left slightly weaker than right side Reflexes: symmetric and equal B/L upper and lower extremities Sensation: decreased to light touch of left side UE and LE Skin: Skin intact where visible to head, neck, and bilateral upper and lower extremities EXCEPT:IV Psychiatric: Mood calm, affect appropriate, cooperative Results CBC & Chem 7: 02/18/25 02:44 02/18/25 02:44 Labs: Abnormal Lab Results - Last 24 Hours (Table) 02/17/25 02/17/25 02/18/25 Range/Units 11:35 11:35 02:44 MPV 9.0 L (9.5-12.2) FL Anion Gap (4.00-12.00) mmol/L Glucose (70-110) mg/dL POC Glucose (mg/dL) (70-110) mg/dL Hemoglobin A1c 8.2 H (<=6.0) % TSH 0.165 L (0.465-4.680) mIU/L 02/18/25 02/18/25 02/18/25 Range/Units 02:44 07:23 12:20 MPV (9.5-12.2) FL Anion Gap 13.80 H (4.00-12.00) mmol/L Glucose 182 H (70-110) mg/dL POC Glucose (mg/dL) 183 H 141 H (70-110) mg/dL Hemoglobin A1c (<=6.0) % TSH (0.465-4.680) mIU/L Assessment and Plan Assessment: # Impaired gait and ADLs 2 left sided weakness -Comprehensive therapies -MRI brain negative for intracranial mass or acute/subacute infarct; moderate nonspecific white matter changes. #Hypothyroidism 2' thyroidectomy due to cancer #Hx anxiety/depression # Bowel/ Bladder: Nursing to monitor and report concerns if any. # Diet-per EMR # Skin/wound: Skin/Wound care to follow as needed # DVT Prophylaxis: lovenox qd #Comorbidities: HTN, DM, breast cancer, GERD # Your medical dx and mgt Goals: Modified Independent mobility and ADLS both basic and advanced; increased functional mobility/strength; increased balance, safety, endurance. Improvement in medical issues through your care. Barriers: fall risk, weakness Discharge recommendation: Patient is pending medical work up and therapy evaluations. Will continue to follow and make recommendations as appropriate. Patient seen and examined in collaboration with Dr. Bowling Thank you for this consultation.
[2025-02-18 17:10] LABS: Glucose,Whole Blood 192 mg/dL (70-110)
[2025-02-18 19:23] LABS: Glucose,Whole Blood 206 mg/dL (70-110)
[2025-02-18] MEDS: ALPRAZolam 0.5 MG TAB PO PRN (20:04)
[2025-02-18] MEDS: ONDANSETRON 4 MG/2 ML VIAL IVP PRN (20:22)
[2025-02-18] MEDS: MORPHINE SULFATE 2 MG/ML SYRINGE IVP PRN (20:23)
--- NOTE | 2025-02-18 23:26 | MR ---
EXAMINATION TYPE: MR cspine/tspine wo/w con DATE OF EXAM: 02/18/2025 9:59 PM COMPARISON: None. CLINICAL INDICATION: Female, 60 years old with history of Rapidly progressive weakness, rapidly progr essive weakness. TECHNIQUE: Multiplanar multiecho imaging on a 3.0 Kaitlynn magnet is performed through the cervical spin e. IV Contrast: 9 mL Gadobutrol (None, if empty) FINDINGS: The craniovertebral junction is normal. Vertebral body alignment is normal. There is increased signal within the left aspect of the mid cervical spine extending from the C5-C7 l evel. A smaller contiguous tail extends from C7 through T1. Cord expansion is not clearly identified. Following contrast this area does not enhance. Clinical consideration for a large multiple sclerosis plaque should be considered. Differential diagnosis could include, but is not limited to, vasculiti s, ADEM, transverse myelitis. There is some mild disc space narrowing C5-6 C6-7. No suspicious disc bulges or focal disc herniation is evident. No cord contact or spinal canal stenosis is evident. IMPRESSION: 1. Increased signal within the left aspect of the spinal cord at C5-T1. Clinical correlation for harmon sverse myelitis recommended. Differential diagnosis should include multiple sclerosis among other ally ologies. EXAMINATION TYPE: MR cspine/tspine wo/w con DATE OF EXAM: 02/18/2025 9:59 PM COMPARISON: None. CLINICAL INDICATION: Female, 60 years old with history of Rapidly progressive weakness, rapidly progr essive weakness. TECHNIQUE: Multiplanar, multiecho imaging on a 3.0 Kaitlynn magnet is performed through the thoracic spi ne. IV Contrast: 9 mL Gadobutrol (None, if empty) FINDINGS: The tail end of a hyperintensity within the left spinal cord from C5 extends T1. See above for MRI ce rvical spine dictation. The remainder of the thoracic spinal cord appears to maintain normal signal. No additional suspicious areas of hyperintensity on T2 sequences. Vertebral body alignment is normal. Vertebral body heights are preserved. Disc heights are preserved. Disc hydration levels are preserved. No focal disc herniation or significant disc bulge is evident. No cord contact is evident. No suspicious enhancement within the thoracic spine No spinal canal stenosis is evident. IMPRESSION: 1. Small portion of the suspected transverse myelitis at the cervical thoracic junction is partially visualized within the left spinal cord. 2. The remaining thoracic spinal cord and canal appear unremarkable. [facility], , 02/18/2025 11:24 PM
[2025-02-19] MEDS: CYANOCOBALAMIN 1,000 MCG/ML 1 ML VIAL IM SCH (00:20)
[2025-02-19] MEDS: methylPREDNISolone SOD SUCCIN 1,000 MG in SODIUM CHLORIDE 0.9% 250 ML IVPB SCH (00:20)
[2025-02-19 06:25] LABS: Glucose,Whole Blood 242 mg/dL (70-110)
--- NOTE | 2025-02-19 09:47 | P.PN ---
Subjective This is a pleasant 62 years old female with past medical history of multiple medical problems as below. Patient states she could not walk and she has weakness in the left hand and she felt this morning. The symptoms has been going on for last 2 days. She states that she has left side weakness both arms and leg, her left arm more than her left leg. No tingling or numbness Headache or dizziness but complains from little pressure behind her left eye without change in vision She vomited once but no current more vomiting no abdominal pain or diarrhea. No dysuria or urgency. She had some chest pain in the middle going to the back felt like pressure nonspecific, currently gone now. No smoking alcohol or illicit drugs. She is no fever. Blood pressure stable. Labs including CBC, BMP, LFT and INR were unremarkable. Troponin x 2 were negative less than 0.012. EKG showing sinus rhythm at [address]-T changes. Chest x-ray showing no acute cardiopulmonary process. Reviewed chest x-ray by myself and agree. CT of the brain showing moderate nonspecific white matter changes which favor chronic small vessel ischemic changes. However acute/subacute stroke cannot be ruled out. Patient states she is not taking any blood thinners or aspirin at home. 02/18 Patient still has left hemiparesis Her left upper extremity is better still have weakness in the left hand has difficulty grabbing things, her left leg severely weak still the same as yesterday No other new complaint no headache or dizziness. Vitals and labs look stable Thyroid function looks normal Free T4 at 1.9. B12 is 407 and folate 16. Will have glucose controlled but we will start sliding scale, will lower the dose of her long-acting insulin 32 units and to have 16 units because we are not sure if patient will be able to eat today. We will monitor sugar and follow-up results Neurology service on the case She is on aspirin and Plavix Carotid duplex was unremarkable. Echocardiogram is pending 02/19 Patient complaining from weakness on the left side on admission today has been complaining from more weakness in the right leg and the right arm Also she has some pain in her shoulder area and neck area MRI of the brain was negative for acute process, because of her new symptoms MRI of the cervical thoracic spine showing possible transverse myelitis at the cervicothoracic junction. Patient was started on IV Solu-Medrol and inflammatory markers test were ordered. Patient will benefit from IPR upon discharge Review of systems CONSTITUTIONAL: No fever, no malaise, no fatigue. HEENT: No recent visual problems or hearing problems. Denied any sore throat. CARDIOVASCULAR: No orthopnea, PND, no palpitations, no syncope. PULMONARY: No shortness of breath, no cough, no hemoptysis. GENITOURINARY: Denies any burning micturition, frequency, or urgency. MUSCULOSKELETAL/RHEUMATOLOGICAL: Denies any joint pain, swelling, or any muscle pain. ENDOCRINE: Denies any polyuria or polydipsia. Active Medications Generic Name Dose Route Start Last Admin Trade Name Freq PRN Reason Stop Dose Admin Acetaminophen 650 mg 02/17/25 06:50 Acetaminophen Tab 325 Mg Tab PO Q6HR PRN Mild Pain or Fever > 100.5 Alprazolam 0.5 mg 02/18/25 19:03 02/18/25 20:04 Alprazolam 0.5 Mg Tab PO 0.5 mg TID PRN Administration Anxiety Aspirin 81 mg 02/18/25 09:00 02/19/25 07:48 Aspirin 81 Mg PO 81 mg DAILY EKTA Administration Atorvastatin Calcium 80 mg 02/17/25 09:00 02/19/25 07:48 Atorvastatin 80 Mg Tab PO 80 mg DAILY EKTA Administration Calcium Carbonate 1 each 02/17/25 09:00 02/19/25 07:48 Calcium Carb-Vit D 500 Mg-5 Mcg Tab PO 1 each DAILY EKTA Administration Cyanocobalamin 1,000 mcg 02/18/25 23:45 02/19/25 07:49 Cyanocobalamin 1,000 Mcg/Ml 1 Ml Vial IM 02/21/25 23:44 1,000 mcg DAILY EKTA Administration Dapagliflozin 10 mg 02/18/25 09:00 02/19/25 07:48 Dapagliflozin Propanediol 10 Mg Tablet PO 10 mg DAILY EKTA Administration Dextrose/Water 25 ml 02/18/25 09:18 Dextrose 50% Syringe 50 Ml IVP PER PROTOCOL PRN Hypoglycemia Protocol Dextrose/Water 50 ml 02/18/25 09:18 Dextrose 50% Syringe 50 Ml IVP PER PROTOCOL PRN Hypoglycemia Protocol Enoxaparin Sodium 40 mg 02/18/25 09:00 02/19/25 07:48 Enoxaparin 40 Mg/0.4 Ml Syringe SQ 40 mg DAILY EKTA Administration HCTZ/Losartan Potassium 2 each 02/17/25 09:00 02/19/25 07:49 Losartan-Hctz 50-12.5 Mg 1 Each Tab PO Not Given DAILY EKTA Methylprednisolone Sodium 250 mls @ 250 mls/hr 02/18/25 23:45 02/19/25 00:20 Succinate 1,000 mg/ Sodium IVPB 250 mls/hr Chloride HS EKTA Administration Insulin Glargine 16 unit 02/18/25 07:00 02/19/25 06:38 Insulin Glargine (Lantus) 100 Unit/Ml Syr SQ 16 unit DAILY@0700 EKTA Administration Insulin Human Lispro 0 unit 02/18/25 12:30 02/19/25 06:39 Insulin Lispro (Humalog) 100 Unit/Ml 10 Ml Vl SQ 2 unit ACHS EKTA Administration Protocol Levothyroxine Sodium 176 mcg 02/17/25 09:00 02/19/25 07:48 Levothyroxine 88 Mcg Tab PO 176 mcg DAILY EKTA Administration Loratadine 10 mg 02/17/25 09:00 02/19/25 07:48 Loratadine 10 Mg Tab PO 10 mg DAILY EKTA Administration Morphine Sulfate 2 mg 02/18/25 19:02 02/18/25 20:23 Morphine Sulfate 2 Mg/Ml Syringe IVP 2 mg Q4HR PRN Administration Pain/Discomfort Naloxone HCl 0.2 mg 02/17/25 06:50 Naloxone 0.4 Mg/Ml 1 Ml Vial IV Q2M PRN Opioid Reversal Ondansetron HCl 4 mg 02/18/25 20:01 02/18/25 20:22 Ondansetron 4 Mg/2 Ml Vial IVP 4 mg Q6HR PRN Administration Nausea And Vomiting Sertraline HCl 200 mg 02/17/25 21:00 02/18/25 22:52 Sertraline 100 Mg Tab PO 200 mg HS EKTA Administration Trazodone HCl 100 mg 02/17/25 21:00 02/18/25 22:22 Trazodone Hcl 100 Mg Tab PO 100 mg HS EKTA Administration Objective - Vital Signs Vital signs: Vital Signs Temp 98.1 F 02/19/25 07:20 Pulse 55 L 02/19/25 07:20 Resp 17 02/19/25 07:21 BP 71/50 02/19/25 07:20 Pulse Ox 95 02/19/25 07:21 FiO2 Intake & Output 02/18/25 02/19/25 02/19/25 18:59 06:59 18:59 Weight 87.997 kg Other: Voiding Method Bedside Commode Bedside Commode Bedside Commode # Voids 0 - Exam -GENERAL: The patient is alert and oriented x3, not in any acute distress. Well developed, well nourished. Obese HEENT: Pupils are round and equally reacting to light. EOMI. No scleral icterus. No conjunctival pallor. Normocephalic, atraumatic. No pharyngeal erythema. No thyromegaly. CARDIOVASCULAR: S1 and S2 present. No murmurs, rubs, or gallops. PULMONARY: Chest is clear to auscultation, no wheezing , no crackles. ABDOMEN: Soft, nontender, nondistended, normoactive bowel sounds. No palpable organomegaly. MUSCULOSKELETAL: No joint swelling or deformity. EXTREMITIES: No cyanosis, clubbing, or pedal edema. -NEUROLOGICAL: Cranial nerves are grossly intact. Left arm, left leg are weak. Numbness are absent. Meningeal signs labs SKIN: No rashes. no petechiae. - Labs CBC & Chem 7: 02/18/25 02:44 02/18/25 02:44 Labs: Abnormal Lab Results - Last 24 Hours (Table) 02/18/25 02/18/25 02/18/25 Range/Units 12:20 17:05 19:21 POC Glucose (mg/dL) 141 H 192 H 206 H (70-110) mg/dL Hemoglobin A1c (<=6.0) % 02/19/25 02/19/25 Range/Units 04:34 06:24 POC Glucose (mg/dL) 242 H (70-110) mg/dL Hemoglobin A1c 8.2 H (<=6.0) % Assessment and Plan Assessment: Acute left hemiparesis suspicious for acute stroke, MRI of the brain was negative for acute process as well MRI of the cervical and thoracic spine showing possible transverse myelitis at the cervicothoracic junction Central chest pain mild and improved Obesity with BMI of 32 Diabetes mellitus Hyperlipidemia Hypothyroidism History of asthma History of depression anxiety Plan: Continue with IV Solu-Medrol per neurologist. Follow-up inflammatory marker Start aspirin 81 mg Control blood pressure. Continue monitoring insulin Neurology and cardiology team consult Labs and medication were reviewed.. Continue same treatment. Continue with symptomatic treatment. Resume home medication. Monitor labs and vitals. DVT and GI prophylaxis. Further recommendations as per clinical course of the patient DVT prophylaxis: Subcutaneous heparin GI Prophylaxis: Pepcid PT/OT: Pending Speech and swallow evaluation Prognosis is guarded
[2025-02-19 12:04] LABS: Glucose,Whole Blood 337 mg/dL (70-110)
[2025-02-19 12:56] LABS: Creatine Kinase 201 U/L (26-186)
[2025-02-19 13:52] LABS: Lyme IgG/IgM .050
--- NOTE | 2025-02-19 15:34 | P.PN ---
Subjective Progress Note Date: 02/19/25 Principal diagnosis: Patient seen and examined at bedside today. Patient has developed profound worsening of her neurological symptoms since. She has developed numbness of the lower legs, and torso all the way up to T4 level. She feels as if her feet are touching the floor although they are not. She has developed paraplegia. 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 Patient was undergoing urinary catheterization, and she did not feel at all anything because of numbness. Vital signs, SpO2 95% On 2L oxygen via nasal cannula DERECK screen negative Cervical/Thoracic spine MRI shows small portion of suspected transverse myelitis in the cervical thoracic junction is partially visualized within the left spinal cord, the remaining thoracic spinal cord appeared unremarkable Objective - Vital Signs Vital signs: Vital Signs Temp 98.1 F 02/19/25 07:20 Pulse 55 L 02/19/25 07:20 Resp 17 02/19/25 07:21 BP 71/50 02/19/25 07:20 Pulse Ox 95 02/19/25 07:21 FiO2 Intake & Output 02/18/25 02/19/25 02/19/25 18:59 06:59 18:59 Weight 87.997 kg Other: Voiding Method Bedside Commode Bedside Commode # Voids 0 - Exam General: no distress, lying in bed, No peripheral edema. Neuro: Patient is awake alert and oriented x 3. Visual harris are full to confrontation. Extraocular movements intact no nystagmus no facial weakness. Face is symmetric. Right eye blurry vision. Motor: There is no pronator drift in the upper limbs. The biceps, triceps and deltoids are normal bilaterally. Patient not able to make special education math teacher with either hands. Muscle strength is (right/left) biceps 5/5, deltoid 5-/5-, triceps 5- /4+, special education math teacher cannot make a complete fist now with either hands. Patient is now completely paraplegic. Some gross movement noted proximally. Deep tendon reflexes are symmetric 2 at the biceps, 2 brachioradialis, 3 at the knees, 2 ankles and plantars upgoing bilaterally. Sensory to touch is diminished bilaterally from toes all the way up to T4 level. Finger to nose testing normal on b/l UE, heel to pond test unable to perform bilaterally - Labs CBC & Chem 7: 02/18/25 02:44 02/18/25 02:44 Labs: Abnormal Lab Results - Last 24 Hours (Table) 02/18/25 02/18/25 02/18/25 Range/Units 12:20 17:05 19:21 POC Glucose (mg/dL) 141 H 192 H 206 H (70-110) mg/dL Hemoglobin A1c (<=6.0) % 02/19/25 02/19/25 Range/Units 04:34 06:24 POC Glucose (mg/dL) 242 H (70-110) mg/dL Hemoglobin A1c 8.2 H (<=6.0) % Assessment and Plan Assessment: Acute transverse myelitis with abnormal signal in the cord from C5 extending to T1. Exact cause is uncertain, but patient did suffer from COVID infection about a month ago, which may have triggered this abnormal immune response with transverse myelitis. Diabetes mellitus, not well-controlled Hypothyroidism, secondary to thyroidectomy due to cancer Hypertension History of tick bites Plan: Cervical/Thoracic spine MRI shows increased signal within the left aspect of the spinal cord at C5-T1, small portion of suspected transverse myelitis in the cervical thoracic junction is partially visualized within the left spinal cord, the remaining thoracic spinal cord appeared unremarkable MRI of the brain revealed no evidence of acute ischemic stroke. Exact cause of left leg weakness is uncertain. Rule out Lyme disease. Rule out lumbosacral plexopathy, but patient denies any radicular pain. Brain MRI shows no evidence of intracranial mass or acute/subacute infarct, moderate nonspecific white matter changes etiologies include small vessel ischemic disease, demyelinating disease, chronic migraines, vasculitis, Lyme disease. On my review, there is no evidence of any acute stroke. There is bi lateral symmetric white matter disease seen. Brain CT shows no acute intracranial hemorrhage or midline shift, There is moderate nonspecific white matter changes with favor productive of chronic small vessel ischemic change and the patient of this age, other etiologies including more acute/subacute stroke cannot entirely explain without prior comparison Carotid Doppler shows no hemodynamically significant stenosis bilaterally, subcentimeter nodular area inferior and lateral to the right carotid bifurcation may represent a lymph node. We will defer to IM to address the lymph node. Echocardiogram shows EF 55 to 60%, preserved LV size and function, no pericardial effusion, very mild aortic stenosis, 2+ aortic regurgitation Start Solumedrol 1000 mg IVPB daily for 5 days. She received first dose last night. DERECK, Sjogren's antibodies and Lyme testing negative. ESR 32, CK 98 and CRP <0.30 We will consider lumbar puncture, however cannot be performed as patient has received Plavix for 2 days. It can be done about 5 days after stopping Plavix. Glucose 183, A1c 8.2, ammonia <9, triglycerides 149, cholesterol 171, LDL 84.7, VLDL 29.8, HDL 56.5, vitamin B12 407, folate 16.5, TSH 0.165, free T4 1.98 Recommend optimize control of diabetes to target A1c <7.0. Continue home med atorvastatin 80 mg p.o. daily Continue aspirin 81 mg p.o. daily. Discontinue Plavix. Home meds Farxiga 10 mg p.o. daily and Hyzaar to each p.o. daily, levothyroxine 175 mcg p.o. daily resumed Blood pressure is well-controlled. DVT prophylaxis : Enoxaparin 40 mg SQ daily Discussed with patient and multiple family members in detail. Dictation was produced using [employer] dictation software. please excuse any grammatical, word or spelling errors. Eanrest Fishman MD PGY-2 IM I was present for the ibarra and critical components of this encounter and I agree with assessment and plan as documented above and modified by myself as above. Carli Maki MD
--- NOTE | 2025-02-19 15:44 | P.CNOR ---
History of Present Illness - [facility] Consult date: 02/19/25 Requesting physician: Leatha Keenan Consult reason: other (Upper extremity lower extremity weakness) History of present illness: Patient is a very pleasant 60-year-old female who is seen examined at bedside with her family present. We are consulted for cervical pain with bilateral upper extremity and lower extremity weakness. Patient states she went to dinner this past 02/14/2025, without difficulty. She states beginning on 02/16/2025, her legs did not appear to function for her in the morning and she sustained a fall. She has been progressively worsening since that time. Currently she is lying in bed and is unable to get out of bed. She has sensation in her lower extremities with muscle spasms but cannot perform any active range of motion of her lower extremities. She is able to perform some activities with her upper extremities in regards to her deltoids, biceps, triceps throughout these ranges of motion. She is unable to make a fist bilaterally. She has some cervical pain with spasm but her weakness is her most significant symptom. She is not complaining of much pain at all. Continued to worsen since her admission to the hospital. She does admit to some muscle spasms in her upper extremity lower extremities as well. Prior to being seen at the bedside she has had MRI imaging of her brain, cervical spine, and thoracic spine. She is admitted to medicine. She is being seen by neurology. Neurology felt the patient did not have evidence of acute stroke. Patient and family stated the bedside neurology feels she may have transverse myelitis. She is currently on IV Solu-Medrol. They are waiting for further evaluation with neurology today. She has had some difficulty with urination as well. She currently has an external catheter intact. Patient was also seen and examined by cardiology. Past Medical History Past Medical History: Asthma, Cancer, Diabetes Mellitus, GERD/Reflux, Musculoskeletal Disorder, Thyroid Disorder Additional Past Medical History / Comment(s): ganglion cyst right foot that causes pain, hx. breast [id number] & 1997-surg. & radiation, thyroid cancer 1998 & 2012 covid 01/2025, depression History of Any Multi-Drug Resistant Organisms: None Reported Past Surgical History: Appendectomy, Breast Surgery, Hysterectomy Additional Past Surgical History / Comment(s): thyroidectomy & parathyroidectomy, bilateral breast lumpectomies, skin lesions removed, ALICIA/BSO Past Anesthesia/Blood Transfusion Reactions: Previous Problems w/ Anesthesia Additional Past Anesthesia/Blood Transfusion Reaction / Comm: slow to wake up Past Psychological History: Anxiety, Depression Smoking Status: Never smoker Past Alcohol Use History: None Reported Past Drug Use History: None Reported - Past Family History Mother Family Medical History: No Reported History Medications and Allergies Home Medications Medication Instructions Recorded Confirmed Type Acetaminophen [Tylenol Extra 1,000 mg PO Q6H PRN 02/15/17 02/17/25 History Strength] Dapagliflozin Propanediol [Farxiga] 10 mg PO DAILY 02/15/17 02/17/25 History Sertraline HCl [Zoloft] 200 mg PO HS 02/15/17 02/17/25 History metFORMIN HCL [Glucophage] 500 mg PO BID 02/15/17 02/17/25 History ALPRAZolam [Xanax] 0.5 mg PO BID PRN 02/17/25 02/17/25 History Calcium W/Vitamin D3 1800mg 1 tab PO DAILY 02/17/25 02/17/25 History Cetirizine HCl [Zyrtec] 10 mg PO DAILY 02/17/25 02/17/25 History Insulin Degludec [Tresiba 32 units SQ DAILY 02/17/25 02/17/25 History Flextouch U-200 Pen] Levothyroxine Sodium [Synthroid] 175 mcg PO DAILY 02/17/25 02/17/25 History Losartan/Hydrochlorothiazide 1 tab PO DAILY 02/17/25 02/17/25 History [Losartan-Hctz 100-25 mg Tab] Meloxicam [Mobic] 15 mg PO DAILY 02/17/25 02/17/25 History Rosuvastatin Calcium [Crestor] 40 mg PO DAILY 02/17/25 02/17/25 History Semaglutide [Ozempic] 2 mg SQ MO 02/17/25 02/17/25 History traZODone HCL [Desyrel] 100 mg PO HS 02/17/25 02/17/25 History Allergies Allergy/AdvReac Type Severity Reaction Status Date / Time No Known Allergies Allergy Verified 02/17/25 07:57 Physical Examination Osteopathic Statement: *. No significant issues noted on an osteopathic structural exam other than those noted in the History and Physical/Consult. Physical exam: Patient is awake, alert, and oriented 3 Vital signs stable Examination of the cervical spine reveals skin is intact with no abrasions, lacerations, or bruises; no erythema, purulence or signs of infection Adequate range of motion of the cervical spine with adequate flexion, extension, and bilateral rotation Significant bilateral upper extremity weakness throughout range of motion but positive sustained with biceps, triceps, and deltoids Patient is currently unable to make a fist bilaterally Blending Tank Tender strength is 0/5 bilaterally Negative Doug sign bilaterally. No upper extremity hyperreflexia Biceps reflex 2+ bilaterally and Brachioradialis reflexes 2+ bilaterally No upper extremity hyperreflexia bilaterally No signs or symptoms of DVT; no calf pain Patient does have sensation with palpation over her thighs, calves, and feet bilaterally Patient is unable to perform any active dorsiflexion, plantarflexion, hip flexion, or range of motion of the knees bilaterally. She is able to perform some EHL on the right. External catheter intact No pain with internal and external rotation of the hips bilaterally Results Pertinent studies: MRI of the cervical spine and thoracic spine taken on 02/18/2025: Increased signal within the left aspect of the mid cervical spine extending from C5-7 and a smaller continuous tail extending C7-T1; cord expansion is not clearly identified; contrast to this area does not enhance; clinical correlation for transverse myelitis is recommended but differential diagnosis also includes multiple sclerosis among other etiologies; remaining visualized cervical spinal cord and thoracic spinal cord appear unremarkable; no significant herniated nucleus pulposus or significant spinal canal stenosis; C5-6 and C6/7 degenerative disc disease MRI of the brain taken on 02/18/2025: No evidence of intracranial mass or subacute/acute infarct; moderate nonspecific white matter changes - Labs Labs: Abnormal Lab Results - Last 24 Hours (Table) 02/18/25 02/18/25 02/18/25 Range/Units 02:44 02:44 17:05 ESR 32 H (0-30) mm/Hr POC Glucose (mg/dL) 192 H (70-110) mg/dL Hemoglobin A1c (<=6.0) % Creatine Kinase 201 H (26-186) U/L 02/18/25 02/19/25 02/19/25 Range/Units 19:21 04:34 06:24 ESR (0-30) mm/Hr POC Glucose (mg/dL) 206 H 242 H (70-110) mg/dL Hemoglobin A1c 8.2 H (<=6.0) % Creatine Kinase (26-186) U/L 02/19/25 Range/Units 11:59 ESR (0-30) mm/Hr POC Glucose (mg/dL) 337 H (70-110) mg/dL Hemoglobin A1c (<=6.0) % Creatine Kinase (26-186) U/L H & H 02/17/25 02/18/25 Range/Units 05:19 02:44 Hgb 12.7 13.2 (12.0-15.0) g/dL Hct 37.4 41.3 (37.2-46.3) % Coagulation 02/17/25 Range/Units 05:19 INR 0.9 (<1.2) Result Diagrams: 02/18/25 02:44 02/18/25 02:44 Assessment and Plan Assessment: Assessment: Increased signal at the cervical spinal cord at C5-7 and C7-T1 Progressive upper extremity lower extremity weakness since 02/16/2025 Bilateral upper extremity weakness 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 Flaccid paralysis bilateral lower extremities Patient is unable to perform any active motor function of her bilateral lower extremities except for slight EHL on the right C5-6 and C6-7 degenerative disc disease Cervical pain Possible transverse myelitis Upper extremity lower extremity muscle spasms (1) Upper extremity weakness Current Visit: Yes Status: Acute Code(s): R29.898 - OTH SYMPTOMS AND SIGNS INVOLVING THE MUSCULOSKELETAL SYSTEM SNOMED Code(s): 977545666 (2) Lower extremity weakness Current Visit: Yes Status: Acute Code(s): R29.898 - OTH SYMPTOMS AND SIGNS INVOLVING THE MUSCULOSKELETAL SYSTEM SNOMED Code(s): 328892133 (3) Muscle spasms of both lower extremities Current Visit: Yes Status: Acute Code(s): M62.838 - OTHER MUSCLE SPASM SNOMED Code(s): 00372444 (4) Muscle spasms of neck Current Visit: Yes Status: Acute Code(s): M62.838 - OTHER MUSCLE SPASM SNOMED Code(s): 201654248855 (5) Degeneration of C5-C6 intervertebral disc Current Visit: Yes Status: Acute Code(s): M50.322 - OTHER CERVICAL DISC DEGENERATION AT C5-C6 LEVEL SNOMED Code(s): 68384184 (6) Degeneration of intervertebral disc at C6-C7 level Current Visit: Yes Status: Acute Code(s): M50.323 - OTHER CERVICAL DISC DEGENERATION AT C6-C7 LEVEL SNOMED Code(s): 23658542 (7) Acute transverse myelitis Current Visit: Yes Status: Acute Code(s): G37.3 - ACUTE TRANSVERSE MYELITIS IN DEMYELINATING DISEASE OF CNSL SNOMED Code(s): 34262732 Plan: Plan: 1. Meche has been experiencing progressive significant upper extremity lower extremity weakness without specific injury since 02/16/2025. Her symptoms have continued to worsen since her admittance to the hospital. She is currently unable to perform any significant active range of motion of her bilateral lower extremities except for some EHL on the right. She has sensation with palpation of her lower extremities but also some muscle spasms. Her upper extremities continue to weaken as well. She is able to perform some active range of motion of her biceps, triceps, and deltoids. She is currently unable to make a fist bilaterally. Her imaging has been reviewed by myself and Dr. Reggie Delaney. Reviewing of cervical and thoracic MRI imaging does show evidence of increased signal within the left aspect of the mid cervical spine extending from C5-7 and a smaller continuous tail extending C7-T1 in which clinical correlation for transverse myelitis is recommended but differential diagnosis also includes multiple sclerosis among other etiologies. It does not appear her cord signal change is due to cord compression at her cervical or thoracic spines. We do not see any significant herniated nucleus pulposus or evidence of canal stenosis. We do not currently feel that surgical intervention at her cervical or thoracic spine would provide any significant improvement of her symptoms. We did discuss she needs extensive emergent evaluation with neurology. She is currently being seen by neurology. Patient should continue with extensive workup with neurology. Currently, we would not plan for any surgical intervention at her cervical or thoracic spines. This was discussed in significant detail with the patient and her family. Currently, patient will continue with further treatment evaluation with neurology and medicine. She can follow-up on an as-needed basis in regards to her cervical and thoracic spine in the outpatient setting. The patient is seen and examined. I agree with the above dictation. Patient has profound changes at her upper and lower extremities. We reviewed the imaging of the cervical spine which shows some mild disc degeneration and disc bulging but this does not correlate for a compressive issue at her cervical cord particularly with her significant functional changes. There is some changes within her spinal cord but these do not seem to be due to mechanical cause of compression or disc issue. I do not have any plans for surgical intervention for her. She should continue her medical management and management with neurology. She will likely need lumbar puncture and further workup. She will continue her steroid medication and therapy and we can see her on an as-needed basis. Time with Patient: Greater than 30 (Including obtaining history, physical examination, reviewing of imaging, and dictation.)
[2025-02-19 17:32] LABS: Glucose,Whole Blood 355 mg/dL (70-110)
[2025-02-19] MEDS: SODIUM CHLORIDE 0.9% 500 ML 500 ML IV ONE ×2 (19:34→20:50)
[2025-02-19 20:33] LABS: Glucose,Whole Blood 291 mg/dL (70-110)
[2025-02-19] MEDS: SODIUM CHLORIDE 0.9% 1,000 ML IV SCH (21:51)
[2025-02-20] MEDS: TAMSULOSIN 0.4 MG CAP.ER.24H PO SCH (01:19)
[2025-02-20 06:29] LABS: Bilirubin,Urine Negative (Negative); Blood,Urine Negative (Negative); Color,Urine Colorless; Glucose,Urine (UA) 4+ (Negative); Ketones,Urine Negative (Negative); Leukocyte Esterase,Urine Negative (Negative); Nitrite,Urine Negative (Negative); PH, Urine 5.0 (5.0-8.0); Protein,Urine Negative (Negative); Specific Gravity,Urine 1.015 (1.001-1.035); Urobilinogen,Urine <2.0 mg/dL (<2.0)
[2025-02-20 06:37] LABS: Glucose,Whole Blood 246 mg/dL (70-110)
[2025-02-20 07:16] LABS: Basophils # (A) 0.02 10*3/uL (0.00-0.10); Basophils % (A) 0.1 %; Eosinophils # (A) 0.00 10*3/uL (0.04-0.35); Eosinophils % (A) 0.0 %; HCT 37.5 % (37.2-46.3); HGB 12.9 g/dL (12.0-15.0); Lymphocytes # (A) 1.17 10*3/uL (0.90-5.00); Lymphocytes % (A) 7.9 %; MCH 28.5 pg (27.0-32.0); MCHC 34.4 g/dL (32.0-37.0); MCV 82.8 fL (80.0-97.0); Monocytes # (A) 0.18 10*3/uL (0.20-1.00); Monocytes % (A) 1.2 %; Neutrophils # (A) 13.30 10*3/uL (1.80-7.70); Neutrophils % (A) 90.0 %; Platelet Count 230 10*3/uL (140-440); RBC 4.53 10*6/uL (4.10-5.20); RDW 12.6 % (11.5-14.5); WBC 14.79 10*3/uL (4.50-10.00)
[2025-02-20 07:28] LABS: ALT 21 U/L (4-34); AST 22 U/L (14-36); African American GFR (CKD) 38 (>60 ml/min/1.73 sqM); Albumin 3.9 g/dL (3.5-5.0); Albumin/Globulin Ratio 1.6; Alkaline Phosphatase 56 U/L (38-126); Anion Gap 15 mmol/L; Blood Urea Nitrogen 69 mg/dL (7-17); Calcium 8.3 mg/dL (8.4-10.2); Carbon Dioxide 18 mmol/L (22-30); Chloride 104 mmol/L (98-107); Globulin 2.5 g/dL; Glucose 289 mg/dL (74-99); Non-African American GFR(CKD) 33 (>60 ml/min/1.73 sqM); Potassium 4.0 mmol/L (3.5-5.1); Sodium 137 mmol/L (137-145); Total Protein 6.4 g/dL (6.3-8.2)
[2025-02-20 09:56] LABS: Angiotensin-1 Converting Enz. 43.0 U/L (8-52)
[2025-02-20] MEDS ORDERED: BENZONATATE 100 MG CAP PO PRN (10:19)
[2025-02-20 12:11] LABS: Glucose,Whole Blood 392 mg/dL (70-110)
--- NOTE | 2025-02-20 14:19 | P.PN ---
Subjective This is a pleasant 62 years old female with past medical history of multiple medical problems as below. Patient states she could not walk and she has weakness in the left hand and she felt this morning. The symptoms has been going on for last 2 days. She states that she has left side weakness both arms and leg, her left arm more than her left leg. No tingling or numbness Headache or dizziness but complains from little pressure behind her left eye without change in vision She vomited once but no current more vomiting no abdominal pain or diarrhea. No dysuria or urgency. She had some chest pain in the middle going to the back felt like pressure nonspecific, currently gone now. No smoking alcohol or illicit drugs. She is no fever. Blood pressure stable. Labs including CBC, BMP, LFT and INR were unremarkable. Troponin x 2 were negative less than 0.012. EKG showing sinus rhythm at [address]-T changes. Chest x-ray showing no acute cardiopulmonary process. Reviewed chest x-ray by myself and agree. CT of the brain showing moderate nonspecific white matter changes which favor chronic small vessel ischemic changes. However acute/subacute stroke cannot be ruled out. Patient states she is not taking any blood thinners or aspirin at home. 02/18 Patient still has left hemiparesis Her left upper extremity is better still have weakness in the left hand has difficulty grabbing things, her left leg severely weak still the same as yesterday No other new complaint no headache or dizziness. Vitals and labs look stable Thyroid function looks normal Free T4 at 1.9. B12 is 407 and folate 16. Will have glucose controlled but we will start sliding scale, will lower the dose of her long-acting insulin 32 units and to have 16 units because we are not sure if patient will be able to eat today. We will monitor sugar and follow-up results Neurology service on the case She is on aspirin and Plavix Carotid duplex was unremarkable. Echocardiogram is pending 02/19 Patient complaining from weakness on the left side on admission today has been complaining from more weakness in the right leg and the right arm Also she has some pain in her shoulder area and neck area MRI of the brain was negative for acute process, because of her new symptoms MRI of the cervical thoracic spine showing possible transverse myelitis at the cervicothoracic junction. Patient was started on IV Solu-Medrol and inflammatory markers test were ordered. Patient will benefit from IPR upon discharge 02/20 Patient awake alert, still with bilateral extremity weakness. Differential diagnosis is transverse myelitis of the cervicothoracic junction area of the spinal cord. Patient followed closely by neurology service, started on IV fluids 1000 mg daily. Also today evaluated by orthopedic team they do not recommend any surgical intervention and continue with medical treatment for now Her blood pressure was low last night we have to give her 2 boluses of [address] her on normal saline 75 mL/h while holding her antihypertensive me dication losartan-hydrochlorothiazide. Her blood pressure improved but still on the low side. Creatinine went up to 1.6 most likely secondary hypertension. Another bolus given today and decrease fluid to 100 mL/day and will continue monitoring if no improvement or worsening then may consider nephrology consult Patient has evidence of leukocytosis most likely secondary to steroids. No other source of infection. Patient also is afebrile. ESR is 32. Active Medications Generic Name Dose Route Start Last Admin Trade Name Freq PRN Reason Stop Dose Admin Acetaminophen 650 mg 02/17/25 06:50 Acetaminophen Tab 325 Mg Tab PO Q6HR PRN Mild Pain or Fever > 100.5 Alprazolam 0.5 mg 02/18/25 19:03 02/20/25 09:41 Alprazolam 0.5 Mg Tab PO 0.5 mg TID PRN Administration Anxiety Aspirin 81 mg 02/18/25 09:00 02/20/25 09:41 Aspirin 81 Mg PO 81 mg DAILY EKTA Administration Atorvastatin Calcium 80 mg 02/17/25 09:00 02/20/25 09:41 Atorvastatin 80 Mg Tab PO 80 mg DAILY EKTA Administration Benzonatate 100 mg 02/20/25 10:19 Benzonatate 100 Mg Cap PO TID PRN Cough Calcium Carbonate 1 each 02/17/25 09:00 02/20/25 09:41 Calcium Carb-Vit D 500 Mg-5 Mcg Tab PO 1 each DAILY EKTA Administration Cyanocobalamin 1,000 mcg 02/18/25 23:45 02/20/25 09:40 Cyanocobalamin 1,000 Mcg/Ml 1 Ml Vial IM 02/21/25 23:44 1,000 mcg DAILY EKTA Administration Dextrose/Water 25 ml 02/18/25 09:18 Dextrose 50% Syringe 50 Ml IVP PER PROTOCOL PRN Hypoglycemia Protocol Dextrose/Water 50 ml 02/18/25 09:18 Dextrose 50% Syringe 50 Ml IVP PER PROTOCOL PRN Hypoglycemia Protocol Enoxaparin Sodium 30 mg 02/21/25 09:00 Enoxaparin 40 Mg/0.4 Ml Syringe SQ DAILY EKTA Methylprednisolone Sodium 250 mls @ 250 mls/hr 02/18/25 23:45 02/19/25 21:50 Succinate 1,000 mg/ Sodium IVPB 250 mls/hr Chloride HS EKTA Administration Sodium Chloride 500 mls @ 999 mls/hr 02/20/25 14:11 Saline 0.9% IV 02/20/25 14:41 .Q31M ONE Sodium Chloride 1,000 mls @ 100 mls/hr 02/20/25 14:15 Saline 0.9% IV .Q10H EKTA Insulin Glargine 16 unit 02/18/25 07:00 02/20/25 06:41 Insulin Glargine (Lantus) 100 Unit/Ml Syr SQ 16 unit DAILY@0700 EKTA Administration Insulin Human Lispro 0 unit 02/18/25 12:30 02/20/25 12:32 Insulin Lispro (Humalog) 100 Unit/Ml 10 Ml Vl SQ 5 unit ACHS EKTA Administration Protocol Levothyroxine Sodium 176 mcg 02/21/25 06:30 Levothyroxine 88 Mcg Tab PO DAILY@0630 EKTA Loratadine 10 mg 02/17/25 09:00 02/20/25 09:41 Loratadine 10 Mg Tab PO 10 mg DAILY EKTA Administration Morphine Sulfate 2 mg 02/18/25 19:02 02/18/25 20:23 Morphine Sulfate 2 Mg/Ml Syringe IVP 2 mg Q4HR PRN Administration Pain/Discomfort Naloxone HCl 0.2 mg 02/17/25 06:50 Naloxone 0.4 Mg/Ml 1 Ml Vial IV Q2M PRN Opioid Reversal Ondansetron HCl 4 mg 02/18/25 20:01 02/18/25 20:22 Ondansetron 4 Mg/2 Ml Vial IVP 4 mg Q6HR PRN Administration Nausea And Vomiting Sertraline HCl 200 mg 02/17/25 21:00 02/19/25 21:51 Sertraline 100 Mg Tab PO 200 mg HS EKTA Administration Tamsulosin HCl 0.4 mg 02/20/25 00:10 02/20/25 01:19 Tamsulosin 0.4 Mg Cap.Er.24h PO 0.4 mg PC-SUPPER EKTA Administration Trazodone HCl 100 mg 02/17/25 21:00 02/19/25 21:04 Trazodone Hcl 100 Mg Tab PO 100 mg HS EKTA Administration Objective - Vital Signs Vital signs: Vital Signs Temp 97.6 F 02/20/25 07:12 Pulse 62 02/20/25 07:12 Resp 17 02/20/25 07:12 BP 91/56 02/20/25 07:12 Pulse Ox 94 L 02/20/25 07:12 FiO2 Intake & Output 02/19/25 02/20/25 02/20/25 18:59 06:59 18:59 Intake Total 240 590 Output Total 350 1275 Balance -110 -1275 590 Intake: Oral 240 590 Output: Urine 350 1275 Straight 350 500 Other: Voiding Method Bedside Commode Bedside Commode Indwelling Catheter # Voids 0 0 - Exam -GENERAL: The patient is alert and oriented x3, not in any acute distress. Well developed, well nourished. Obese HEENT: Pupils are round and equally reacting to light. EOMI. No scleral icterus. No conjunctival pallor. Normocephalic, atraumatic. No pharyngeal erythema. No th yromegaly. CARDIOVASCULAR: S1 and S2 present. No murmurs, rubs, or gallops. PULMONARY: Chest is clear to auscultation, no wheezing , no crackles. ABDOMEN: Soft, nontender, nondistended, normoactive bowel sounds. No palpable organomegaly. MUSCULOSKELETAL: No joint swelling or deformity. EXTREMITIES: No cyanosis, clubbing, or pedal edema. -NEUROLOGICAL: Cranial nerves are grossly intact. Left arm, left leg are weak. Numbness are absent. Meningeal signs labs SKIN: No rashes. no petechiae. - Labs CBC & Chem 7: 02/20/25 06:29 02/20/25 06:29 Labs: Abnormal Lab Results - Last 24 Hours (Table) 02/19/25 02/19/25 02/20/25 Range/Units 17:28 20:32 05:45 WBC (4.50-10.00) 10*3/uL MPV (9.5-12.2) fL Immature Gran # (0.00-0.04) 10*3/uL Neutrophils # (1.80-7.70) 10*3/uL Monocytes # (0.20-1.00) 10*3/uL Eosinophils # (0.04-0.35) 10*3/uL Carbon Dioxide (22-30) mmol/L BUN (7-17) mg/dL Creatinine (0.52-1.04) mg/dL Glucose (74-99) mg/dL POC Glucose (mg/dL) 355 H 291 H (70-110) mg/dL Calcium (8.4-10.2) mg/dL Urine Glucose (UA) 4+ H (Negative) 02/20/25 02/20/25 02/20/25 Range/Units 06:29 06:29 06:35 WBC 14.79 H (4.50-10.00) 10*3/uL MPV 9.1 L (9.5-12.2) fL Immature Gran # 0.12 H (0.00-0.04) 10*3/uL Neutrophils # 13.30 H (1.80-7.70) 10*3/uL Monocytes # 0.18 L (0.20-1.00) 10*3/uL Eosinophils # 0.00 L (0.04-0.35) 10*3/uL Carbon Dioxide 18 L (22-30) mmol/L BUN 69 H (7-17) mg/dL Creatinine 1.66 H (0.52-1.04) mg/dL Glucose 289 H (74-99) mg/dL POC Glucose (mg/dL) 246 H (70-110) mg/dL Calcium 8.3 L (8.4-10.2) mg/dL Urine Glucose (UA) (Negative) 02/20/25 Range/Units 12:08 WBC (4.50-10.00) 10*3/uL MPV (9.5-12.2) fL Immature Gran # (0.00-0.04) 10*3/uL Neutrophils # (1.80-7.70) 10*3/uL Monocytes # (0.20-1.00) 10*3/uL Eosinophils # (0.04-0.35) 10*3/uL Carbon Dioxide (22-30) mmol/L BUN (7-17) mg/dL Creatinine (0.52-1.04) mg/dL Glucose (74-99) mg/dL POC Glucose (mg/dL) 392 H (70-110) mg/dL Calcium (8.4-10.2) mg/dL Urine Glucose (UA) (Negative) Assessment and Plan Assessment: Acute left hemiparesis suspicious for acute stroke, MRI of the brain was negative for acute process as well MRI of the cervical and thoracic spine showing possible transverse myelitis at the cervicothoracic junction Central chest pain mild and improved Obesity with BMI of 32 Hypotension Diabetes mellitus Hyperlipidemia Hypothyroidism History of asthma History of depression anxiety Plan: Continue with IV Solu-Medrol per neurologist. Follow-up inflammatory marker Start aspirin 81 mg Continue with normal saline 100 mL/h. Status post boluses of normal saline. Monitor blood pressure. Hold losartan-hydrochlorothiazide. Also will repeat urine analysis and chest x-ray Control blood pressure. Continue monitoring insulin Neurology and cardiology team consult Labs and medication were reviewed.. Continue same treatment. Continue with symptomatic treatment. Resume home medication. Monitor labs and vitals. DVT and GI prophylaxis. Further recommendations as per clinical course of the pat ient DVT prophylaxis: Subcutaneous heparin GI Prophylaxis: Pepcid PT/OT: Pending Speech and swallow evaluation Prognosis is guarded
--- NOTE | 2025-02-20 14:39 | XR ---
EXAMINATION TYPE: XR chest 1V portable DATE OF EXAM: 02/20/2025 2:35 PM COMPARISON: Chest radiographs from 02/17/2025 TECHNIQUE: XR chest 1V portable Portable AP radiograph of the chest. CLINICAL INDICATION:Female, 60 years old with history of Hypotension; FINDINGS: Lungs/Pleura: There is no evidence of pleural effusion, focal consolidation, or pneumothorax. Pulmonary vascularity: Unremarkable. Heart/mediastinum: Cardiomediastinal silhouette is unremarkable. Musculoskeletal: No acute osseous pathology. Osteophytosis of the thoracic spine. IMPRESSION: No acute cardiopulmonary disease/process. [facility], , 02/20/2025 2:37 PM
[2025-02-20] MEDS: SODIUM CHLORIDE 0.9% 500 ML 500 ML IV ONE (14:46)
[2025-02-20] MEDS: SODIUM CHLORIDE 0.9% 1,000 ML IV SCH (14:46)
[2025-02-20] MEDS: ACETAMINOPHEN TAB 325 MG TAB PO PRN (14:55)
--- NOTE | 2025-02-20 17:10 | P.PN ---
Subjective Progress Note Date: 02/20/25 Principal diagnosis: Patient seen and examined at bedside today. Multiple family members were present by the bedside. Patient states her arms proximally are stronger but hands are still weak. She noticed some movement of the right leg. Left leg continues to be flaccid. Review of systems: Pertinent positives and negatives mentioned in the HPI. Rest of 14 point review of systems is negative. Vitals, BP 91/56, SpO2 94% on room air WBC 14.79, BUN 69, creatinine 1.66, glucose 246, CRP <0.30, ESR 32 UA shows 4+ glucose Objective - Vital Signs Vital signs: Vital Signs Temp 97.6 F 02/20/25 07:12 Pulse 62 02/20/25 07:12 Resp 17 02/20/25 07:12 BP 91/56 02/20/25 07:12 Pulse Ox 94 L 02/20/25 07:12 FiO2 Intake & Output 02/19/25 02/20/25 02/20/25 18:59 06:59 18:59 Intake Total 240 Output Total 350 1275 Balance -110 -1275 Intake: Oral 240 Output: Urine 350 1275 Straight 350 500 Other: Voiding Method Bedside Commode Bedside Commode # Voids 0 0 - Exam General: no distress, lying in bed, No peripheral edema. Neuro: Patient is awake alert and oriented x 3. Visual harris are full to confrontation. Extraocular movements intact no nystagmus no facial weakness. Face is symmetric. Right eye blurry vision. Motor: There is no pronator drift in the upper limbs. 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 Patient has some trace movement of the right toe/ankle very inconsistently, which could be reflexive. Deep tendon reflexes are symmetric 2 at the biceps, 2 brachioradialis, 3 at the knees, 2 ankles and plantars are upgoing bilaterally. Sensory to touch is diminished bilaterally from toes all the way up to T4 level. Finger to nose testing normal on b/l UE, heel to pond test unable to perform bilaterally - Labs CBC & Chem 7: 02/20/25 06:29 02/20/25 06:29 Labs: Abnormal Lab Results - Last 24 Hours (Table) 02/18/25 02/18/25 02/19/25 Range/Units 02:44 02:44 11:59 WBC (4.50-10.00) 10*3/uL MPV (9.5-12.2) fL Immature Gran # (0.00-0.04) 10*3/uL Neutrophils # (1.80-7.70) 10*3/uL Monocytes # (0.20-1.00) 10*3/uL Eosinophils # (0.04-0.35) 10*3/uL ESR 32 H (0-30) mm/Hr Carbon Dioxide (22-30) mmol/L BUN (7-17) mg/dL Creatinine (0.52-1.04) mg/dL Glucose (74-99) mg/dL POC Glucose (mg/dL) 337 H (70-110) mg/dL Calcium (8.4-10.2) mg/dL Creatine Kinase 201 H (26-186) U/L Urine Glucose (UA) (Negative) 02/19/25 02/19/25 02/20/25 Range/Units 17:28 20:32 05:45 WBC (4.50-10.00) 10*3/uL MPV (9.5-12.2) fL Immature Gran # (0.00-0.04) 10*3/uL Neutrophils # (1.80-7.70) 10*3/uL Monocytes # (0.20-1.00) 10*3/uL Eosinophils # (0.04-0.35) 10*3/uL ESR (0-30) mm/Hr Carbon Dioxide (22-30) mmol/L BUN (7-17) mg/dL Creatinine (0.52-1.04) mg/dL Glucose (74-99) mg/dL POC Glucose (mg/dL) 355 H 291 H (70-110) mg/dL Calcium (8.4-10.2) mg/dL Creatine Kinase (26-186) U/L Urine Glucose (UA) 4+ H (Negative) 02/20/25 02/20/25 02/20/25 Range/Units 06:29 06:29 06:35 WBC 14.79 H (4.50-10.00) 10*3/uL MPV 9.1 L (9.5-12.2) fL Immature Gran # 0.12 H (0.00-0.04) 10*3/uL Neutrophils # 13.30 H (1.80-7.70) 10*3/uL Monocytes # 0.18 L (0.20-1.00) 10*3/uL Eosinophils # 0.00 L (0.04-0.35) 10*3/uL ESR (0-30) mm/Hr Carbon Dioxide 18 L (22-30) mmol/L BUN 69 H (7-17) mg/dL Creatinine 1.66 H (0.52-1.04) mg/dL Glucose 289 H (74-99) mg/dL POC Glucose (mg/dL) 246 H (70-110) mg/dL Calcium 8.3 L (8.4-10.2) mg/dL Creatine Kinase (26-186) U/L Urine Glucose (UA) (Negative) Assessment and Plan Assessment: Acute transverse myelitis with abnormal signal in the cord from C5 extending to T1. Exact cause is uncertain, but patient did suffer from COVID infection about a month ago, which may have triggered this abnormal immune response with transverse myelitis. Recent COVID infection Diabetes mellitus, not well-controlled Hypothyroidism, secondary to thyroidectomy due to cancer Hypertension History of tick bites Plan: Cervical/Thoracic spine MRI shows increased signal within the left aspect of the spinal cord at C5-T1, small portion of suspected transverse myelitis in the cervical thoracic junction is partially visualized within the left spinal cord, the remaining thoracic spinal cord appeared unremarkable Brain MRI shows no evidence of intracranial mass or acute/subacute infarct, moderate nonspecific white matter changes etiologies include small vessel ischemic disease, demyelinating disease, chronic migraines, vasculitis, Lyme disease. On my review, there is no evidence of any acute stroke. There is bilateral symmetric white matter disease seen. Carotid Doppler shows no hemodynamically significant stenosis bilaterally, subcentimeter nodular area inferior and lateral to the right carotid bifurcation may represent a lymph node. We will defer to IM to address the lymph node. Echocardiogram shows EF 55 to 60%, preserved LV size and function, no pericardial effusion, very mild aortic stenosis, 2+ aortic regurgitation DERECK, Sjogren antibodies and Lyme testing negative CRP <0.30, ESR 32, creatinine kinase 201 Continue Solumedrol 1000 mg IVPB HS for total of 5 day Continue home med atorvastatin 80 mg p.o. daily Continue aspirin 81 mg p.o. daily. Discontinue Plavix. We will consider lumbar puncture, however cannot be performed as patient has received Plavix for 2 days. It can be done about 5 days after stopping Plavix. Glucose 183, A1c 8.2, ammonia <9, triglycerides 149, cholesterol 171, LDL 84.7, VLDL 29.8, HDL 56.5, vitamin B12 407, folate 16.5, TSH 0.165, free T4 1.98 Recommend optimize control of diabetes to target A1c <7.0. Home meds Farxiga 10 mg p.o. daily and Hyzaar to each p.o. daily, levothyroxine 175 mcg p.o. daily resumed DVT prophylaxis : Enoxaparin 40 mg SQ daily Dictation was produced using [employer] dictation software. please excuse any grammatical, word or spelling errors. Earnets Fishman MD PGY-2 IM I was present for the ibarra and critical components of this encounter and I agree with assessment and plan as documented above and modified by myself as above. Carli Maki MD
[2025-02-20 17:24] LABS: Glucose,Whole Blood 285 mg/dL (70-110)
[2025-02-20 20:24] LABS: Glucose,Whole Blood 208 mg/dL (70-110)
[2025-02-20 21:12] LABS: Bacteria,Urine Moderate /hpf; Bilirubin,Urine Negative (Negative); Blood,Urine Small (Negative); Color,Urine Colorless; Glucose,Urine (UA) 4+ (Negative); Ketones,Urine Negative (Negative); Leukocyte Esterase,Urine Trace (Negative); Mucus,Urine Rare /hpf; Nitrite,Urine Negative (Negative); PH, Urine 5.0 (5.0-8.0); Protein,Urine Negative (Negative); RBC,Urine 2 /hpf (0-5); Specific Gravity,Urine 1.029 (1.001-1.035); Squamous Epithelial Cell,Urine 20 /hpf (0-4); Urobilinogen,Urine <2.0 mg/dL (<2.0); WBC,Urine 5 /hpf (0-5)
[2025-02-21 06:38] LABS: Glucose,Whole Blood 220 mg/dL (70-110)
[2025-02-21] MEDS: LEVOTHYROXINE 88 MCG TAB PO SCH (06:52)
[2025-02-21 08:53] LABS: Basophils # (A) 0.01 X 10*3/uL (0.00-0.10); Basophils % (A) 0.1 %; Eosinophils # (A) 0.01 X 10*3/uL (0.04-0.35); Eosinophils % (A) 0.1 %; HCT 36.5 % (37.2-46.3); HGB 12.3 g/dL (12.0-15.0); Immature Grans, Automated 0.50 %; Lymphocytes # (A) 0.68 X 10*3/uL (0.90-5.00); Lymphocytes % (A) 4.5 %; MCH 27.9 pg (27.0-32.0); MCHC 33.7 g/dL (32.0-37.0); MCV 82.8 FL (80.0-97.0); Monocytes # (A) 0.21 X 10*3/uL (0.20-1.00); Monocytes % (A) 1.4 %; NRBC Per 100 WBC 0 X 10*3/uL (0.00-0.01); Neutrophils # (A) 14.28 X 10*3/uL (1.80-7.70); Neutrophils % (A) 93.4 %; Platelet Count 238 X 10*3/uL (140-440); RBC 4.41 X 10*6/uL (4.10-5.20); RDW 12.7 % (11.5-14.5); WBC 15.26 X 10*3/uL (4.50-10.00)
--- NOTE | 2025-02-21 09:06 | P.GSCN ---
History of Present Illness Consult date: 02/21/25 Reason for Consult: Urinary retention Requesting physician: Grover E Sheet History of present illness: The patient is a 60-year-old white female who presented to the ER on February 17, 2025 following the onset of generalized weakness, predominantly left-sided on February 16, 2025. She had COVID approximately 1 month ago, the significance of which is unclear. She has been found to have acute transverse myelitis with abnormal signal in the cord from C5 extending to T1 of indeterminate etiology and is being treated with corticosteroids. As a result, she has noted improved strength in her upper extremities. She has been found to be in urinary retention. I am consulted for this reason. The patient states that she is normally very active and has an unremarkable urologic history. She denies any prior history of urolithiasis. She has been treated for occasional UTIs in the past. She reports nocturia x 1 as a baseli ne, and denies any history of dysuria, hematuria, and urinary incontinence. Review of Systems - Genitourinary Genitourinary: Reports as per HPI - Musculoskeletal Reports as per HPI Past Medical History Past Medical History: Asthma, Cancer, Diabetes Mellitus, GERD/Reflux, Musculoskeletal Disorder, Thyroid Disorder Additional Past Medical History / Comment(s): ganglion cyst right foot that causes pain, hx. breast [id number] & 1997-surg. & radiation, thyroid cancer 1998 & 2012 covid 01/2025, depression History of Any Multi-Drug Resistant Organisms: None Reported Past Surgical History: Appendectomy, Breast Surgery, Hysterectomy Additional Past Surgical History / Comment(s): thyroidectomy & parathyroidectomy, bilateral breast lumpectomies, skin lesions removed, ALICIA/BSO Past Anesthesia/Blood Transfusion Reactions: Previous Problems w/ Anesthesia Additional Past Anesthesia/Blood Transfusion Reaction / Comm: slow to wake up Past Psychological History: Anxiety, Depression Smoking Status: Never smoker Past Alcohol Use History: None Reported Past Drug Use History: None Reported - Past Family History Mother Family Medical History: No Reported History Medications and Allergies Home Medications Medication Instructions Recorded Confirmed Type Acetaminophen [Tylenol Extra 1,000 mg PO Q6H PRN 02/15/17 02/17/25 History Strength] Dapagliflozin Propanediol [Farxiga] 10 mg PO DAILY 02/15/17 02/17/25 History Sertraline HCl [Zoloft] 200 mg PO HS 02/15/17 02/17/25 History metFORMIN HCL [Glucophage] 500 mg PO BID 02/15/17 02/17/25 History ALPRAZolam [Xanax] 0.5 mg PO BID PRN 02/17/25 02/17/25 History Calcium W/Vitamin D3 1800mg 1 tab PO DAILY 02/17/25 02/17/25 History Cetirizine HCl [Zyrtec] 10 mg PO DAILY 02/17/25 02/17/25 History Insulin Degludec [Tresiba 32 units SQ DAILY 02/17/25 02/17/25 History Flextouch U-200 Pen] Levothyroxine Sodium [Synthroid] 175 mcg PO DAILY 02/17/25 02/17/25 History Losartan/Hydrochlorothiazide 1 tab PO DAILY 02/17/25 02/17/25 History [Losartan-Hctz 100-25 mg Tab] Meloxicam [Mobic] 15 mg PO DAILY 02/17/25 02/17/25 History Rosuvastatin Calcium [Crestor] 40 mg PO DAILY 02/17/25 02/17/25 History Semaglutide [Ozempic] 2 mg SQ MO 02/17/25 02/17/25 History traZODone HCL [Desyrel] 100 mg PO HS 02/17/25 02/17/25 History Allergies Allergy/AdvReac Type Severity Reaction Status Date / Time No Known Allergies Allergy Verified 02/17/25 07:57 Surgical - Exam Vital Signs Temp Pulse Resp BP Pulse Ox 97.9 F 74 16 121/83 97 02/17/25 04:53 02/17/25 04:53 02/17/25 04:53 02/17/25 04:53 02/17/25 04:53 - General well developed, well nourished, no distress - Respiratory normal respiratory effort - Psychiatric oriented to time, oriented to person, oriented to place, speech is normal, memory intact Results - Labs 02/21/25 05:17 02/20/25 06:29 Abnormal Lab Results - Last 24 Hours (Table) 02/19/25 02/20/25 02/20/25 Range/Units 04:34 06:29 06:29 WBC 14.79 H (4.50-10.00) 10*3/uL MPV 9.1 L (9.5-12.2) fL Immature Gran # 0.12 H (0.00-0.04) 10*3/uL Neutrophils # 13.30 H (1.80-7.70) 10*3/uL Monocytes # 0.18 L (0.20-1.00) 10*3/uL Eosinophils # 0.00 L (0.04-0.35) 10*3/uL Carbon Dioxide 18 L (22-30) mmol/L BUN 69 H (7-17) mg/dL Creatinine 1.66 H (0.52-1.04) mg/dL Glucose 289 H (74-99) mg/dL POC Glucose (mg/dL) (70-110) mg/dL Calcium 8.3 L (8.4-10.2) mg/dL Methylmalonic Acid 0.45 H (<0.40) umol/L Urine Appearance (Clear) Urine Glucose (UA) (Negative) Urine Blood (Negative) Ur Leukocyte Esterase (Negative) Ur Squamous Epith Cells (0-4) /hpf Urine Bacteria (None) /hpf Urine Mucus (None) /hpf 02/20/25 02/20/25 02/20/25 Range/Units 12:08 14:50 17:19 WBC (4.50-10.00) 10*3/uL MPV (9.5-12.2) fL Immature Gran # (0.00-0.04) 10*3/uL Neutrophils # (1.80-7.70) 10*3/uL Monocytes # (0.20-1.00) 10*3/uL Eosinophils # (0.04-0.35) 10*3/uL Carbon Dioxide (22-30) mmol/L BUN (7-17) mg/dL Creatinine (0.52-1.04) mg/dL Glucose (74-99) mg/dL POC Glucose (mg/dL) 392 H 285 H (70-110) mg/dL Calcium (8.4-10.2) mg/dL Methylmalonic Acid (<0.40) umol/L Urine Appearance Cloudy H (Clear) Urine Glucose (UA) 4+ H (Negative) Urine Blood Small H (Negative) Ur Leukocyte Esterase Trace H (Negative) Ur Squamous Epith Cells 20 H (0-4) /hpf Urine Bacteria Moderate H (None) /hpf Urine Mucus Rare H (None) /hpf 02/20/25 02/21/25 Range/Units 20:22 06:36 WBC (4.50-10.00) 10*3/uL MPV (9.5-12.2) fL Immature Gran # (0.00-0.04) 10*3/uL Neutrophils # (1.80-7.70) 10*3/uL Monocytes # (0.20-1.00) 10*3/uL Eosinophils # (0.04-0.35) 10*3/uL Carbon Dioxide (22-30) mmol/L BUN (7-17) mg/dL Creatinine (0.52-1.04) mg/dL Glucose (74-99) mg/dL POC Glucose (mg/dL) 208 H 220 H (70-110) mg/dL Calcium (8.4-10.2) mg/dL Methylmalonic Acid (<0.40) umol/L Urine Appearance (Clear) Urine Glucose (UA) (Negative) Urine Blood (Negative) Ur Leukocyte Esterase (Negative) Ur Squamous Epith Cells (0-4) /hpf Urine Bacteria (None) /hpf Urine Mucus (None) /hpf Diabetes panel 02/20/25 Range/Units 06:29 Sodium 137 (137-145) mmol/L Potassium 4.0 (3.5-5.1) mmol/L Chloride 104 (98-107) mmol/L Carbon Dioxide 18 L (22-30) mmol/L BUN 69 H (7-17) mg/dL Creatinine 1.66 H (0.52-1.04) mg/dL Glucose 289 H (74-99) mg/dL Calcium 8.3 L (8.4-10.2) mg/dL AST 22 (14-36) U/L ALT 21 (4-34) U/L Alkaline Phosphatase 56 (38-126) U/L Total Protein 6.4 (6.3-8.2) g/dL Albumin 3.9 (3.5-5.0) g/dL Calcium panel 02/20/25 Range/Units 06:29 Calcium 8.3 L (8.4-10.2) mg/dL Albumin 3.9 (3.5-5.0) g/dL Pituitary panel 02/20/25 Range/Units 06:29 Sodium 137 (137-145) mmol/L Potassium 4.0 (3.5-5.1) mmol/L Chloride 104 (98-107) mmol/L Carbon Dioxide 18 L (22-30) mmol/L BUN 69 H (7-17) mg/dL Creatinine 1.66 H (0.52-1.04) mg/dL Glucose 289 H (74-99) mg/dL Calcium 8.3 L (8.4-10.2) mg/dL Adrenal panel 02/20/25 Range/Units 06:29 Sodium 137 (137-145) mmol/L Potassium 4.0 (3.5-5.1) mmol/L Chloride 104 (98-107) mmol/L Carbon Dioxide 18 L (22-30) mmol/L BUN 69 H (7-17) mg/dL Creatinine 1.66 H (0.52-1.04) mg/dL Glucose 289 H (74-99) mg/dL Calcium 8.3 L (8.4-10.2) mg/dL Total Bilirubin 0.7 (0.2-1.3) mg/dL AST 22 (14-36) U/L ALT 21 (4-34) U/L Alkaline Phosphatase 56 (38-126) U/L Total Protein 6.4 (6.3-8.2) g/dL Albumin 3.9 (3.5-5.0) g/dL Assessment and Plan (1) Retention of urine, unspecified Current Visit: Yes Status: Acute Code(s): R33.9 - RETENTION OF URINE, UNSPECIFIED SNOMED Code(s): 357746132 Plan: The urinary retention is undoubtedly the result of transverse myelitis. I anticipate the retention will resolve with successful treatment of the transverse myelitis. The Gutierrez catheter will need to remain in place until that time. Time with Patient: Greater than 30
[2025-02-21] MEDS: ENOXAPARIN 30 MG/0.3 ML SYRINGE SQ SCH (09:27)
[2025-02-21 09:29] LABS: ALT 18 U/L (8-44); AST 16 U/L (13-35); Albumin 3.7 g/dL (3.8-4.9); Albumin/Globulin Ratio 1.95 Ratio (1.60-3.17); Alkaline Phosphatase 56 U/L (41-126); Anion Gap 13.00 mmol/L (4.00-12.00); BUN/Creat Ratio 77.25 Ratio (12.00-20.00); Bilirubin,Unconjugated >0.20 mg/dL (0.20-1.00); Blood Urea Nitrogen 61.8 mg/dL (9.0-27.0); Calcium 7.5 mg/dL (8.7-10.3); Carbon Dioxide 20.0 mmol/L (21.6-31.8); Chloride 107 mmol/L (96-109); Globulin 1.9 g/dL (1.6-3.3); Glucose 229 mg/dL (70-110); Potassium 4.2 mmol/L (3.5-5.5); Sodium 140 mmol/L (135-145); Total Protein 5.6 g/dL (6.2-8.2)
--- NOTE | 2025-02-21 11:46 | P.PN ---
Subjective This is a pleasant 62 years old female with past medical history of multiple medical problems as below. Patient states she could not walk and she has weakness in the left hand and she felt this morning. The symptoms has been going on for last 2 days. She states that she has left side weakness both arms and leg, her left arm more than her left leg. No tingling or numbness Headache or dizziness but complains from little pressure behind her left eye without change in vision She vomited once but no current more vomiting no abdominal pain or diarrhea. No dysuria or urgency. She had some chest pain in the middle going to the back felt like pressure nonspecific, currently gone now. No smoking alcohol or illicit drugs. She is no fever. Blood pressure stable. Labs including CBC, BMP, LFT and INR were unremarkable. Troponin x 2 were negative less than 0.012. EKG showing sinus rhythm at [address]-T changes. Chest x-ray showing no acute cardiopulmonary process. Reviewed chest x-ray by myself and agree. CT of the brain showing moderate nonspecific white matter changes which favor chronic small vessel ischemic changes. However acute/subacute stroke cannot be ruled out. Patient states she is not taking any blood thinners or aspirin at home. 02/18 Patient still has left hemiparesis Her left upper extremity is better still have weakness in the left hand has difficulty grabbing things, her left leg severely weak still the same as yesterday No other new complaint no headache or dizziness. Vitals and labs look stable Thyroid function looks normal Free T4 at 1.9. B12 is 407 and folate 16. Will have glucose controlled but we will start sliding scale, will lower the dose of her long-acting insulin 32 units and to have 16 units because we are not sure if patient will be able to eat today. We will monitor sugar and follow-up results Neurology service on the case She is on aspirin and Plavix Carotid duplex was unremarkable. Echocardiogram is pending 02/19 Patient complaining from weakness on the left side on admission today has been complaining from more weakness in the right leg and the right arm Also she has some pain in her shoulder area and neck area MRI of the brain was negative for acute process, because of her new symptoms MRI of the cervical thoracic spine showing possible transverse myelitis at the cervicothoracic junction. Patient was started on IV Solu-Medrol and inflammatory markers test were ordered. Patient will benefit from IPR upon discharge 02/20 Patient awake alert, still with bilateral extremity weakness. Differential diagnosis is transverse myelitis of the cervicothoracic junction area of the spinal cord. Patient followed closely by neurology service, started on IV fluids 1000 mg daily. Also today evaluated by orthopedic team they do not recommend any surgical intervention and continue with medical treatment for now Her blood pressure was low last night we have to give her 2 boluses of [address] her on normal saline 75 mL/h while holding her antihypertensive me dication losartan-hydrochlorothiazide. Her blood pressure improved but still on the low side. Creatinine went up to 1.6 most likely secondary hypertension. Another bolus given today and decrease fluid to 100 mL/day and will continue monitoring if no improvement or worsening then may consider nephrology consult Patient has evidence of leukocytosis most likely secondary to steroids. No other source of infection. Patient also is afebrile. ESR is 32. 02/21 Patient showed some improvement today as she is improving both upper limbs better than before for the first time today Also she feels more energetic, blood pressure improved 120/61. She remains on normal saline 100 mL/h. Creatinine went up to 1.6 yesterday came back to normal today at 0.8. Keep holding the diuretics including hydrochlorothiazide. She remains on IV Solu-Medrol for her transverse myelitis Her urine retention is secondary to transverses myelitis. Continue with Gutierrez catheter Active Medications Generic Name Dose Route Start Last Admin Trade Name Freq PRN Reason Stop Dose Admin Acetaminophen 650 mg 02/17/25 06:50 02/20/25 14:55 Acetaminophen Tab 325 Mg Tab PO 650 mg Q6HR PRN Administration Mild Pain or Fever > 100.5 Alprazolam 0.5 mg 02/18/25 19:03 02/21/25 09:26 Alprazolam 0.5 Mg Tab PO 0.5 mg TID PRN Administration Anxiety Aspirin 81 mg 02/18/25 09:00 02/21/25 09:26 Aspirin 81 Mg PO 81 mg DAILY EKTA Administration Atorvastatin Calcium 80 mg 02/17/25 09:00 02/21/25 09:26 Atorvastatin 80 Mg Tab PO 80 mg DAILY EKTA Administration Benzonatate 100 mg 02/20/25 10:19 Benzonatate 100 Mg Cap PO TID PRN Cough Calcium Carbonate 1 each 02/17/25 09:00 02/21/25 09:26 Calcium Carb-Vit D 500 Mg-5 Mcg Tab PO 1 each DAILY EKTA Administration Cyanocobalamin 1,000 mcg 02/18/25 23:45 02/21/25 09:28 Cyanocobalamin 1,000 Mcg/Ml 1 Ml Vial IM 02/21/25 23:44 1,000 mcg DAILY EKTA Administration Dextrose/Water 25 ml 02/18/25 09:18 Dextrose 50% Syringe 50 Ml IVP PER PROTOCOL PRN Hypoglycemia Protocol Dextrose/Water 50 ml 02/18/25 09:18 Dextrose 50% Syringe 50 Ml IVP PER PROTOCOL PRN Hypoglycemia Protocol Enoxaparin Sodium 40 mg 02/22/25 09:00 Enoxaparin 30 Mg/0.3 Ml Syringe SQ DAILY EKTA Methylprednisolone Sodium 250 mls @ 250 mls/hr 02/18/25 23:45 02/20/25 20:54 Succinate 1,000 mg/ Sodium IVPB 250 mls/hr Chloride HS EKTA Administration Sodium Chloride 1,000 mls @ 100 mls/hr 02/20/25 14:15 02/21/25 02:00 Saline 0.9% IV 100 mls/hr .Q10H EKTA Administration Insulin Glargine 16 unit 02/18/25 07:00 02/21/25 06:52 Insulin Glargine (Lantus) 100 Unit/Ml Syr SQ 16 unit DAILY@0700 EKTA Administration Insulin Human Lispro 0 unit 02/18/25 12:30 02/21/25 06:52 Insulin Lispro (Humalog) 100 Unit/Ml 10 Ml Vl SQ 2 unit ACHS EKTA Administration Protocol Levothyroxine Sodium 176 mcg 02/21/25 06:30 02/21/25 06:52 Levothyroxine 88 Mcg Tab PO 176 mcg DAILY@0630 EKTA Administration Loratadine 10 mg 02/17/25 09:00 02/21/25 09:27 Loratadine 10 Mg Tab PO 10 mg DAILY EKTA Administration Morphine Sulfate 2 mg 02/18/25 19:02 02/20/25 17:38 Morphine Sulfate 2 Mg/Ml Syringe IVP 2 mg Q4HR PRN Administration Pain/Discomfort Naloxone HCl 0.2 mg 02/17/25 06:50 Naloxone 0.4 Mg/Ml 1 Ml Vial IV Q2M PRN Opioid Reversal Ondansetron HCl 4 mg 02/18/25 20:01 02/18/25 20:22 Ondansetron 4 Mg/2 Ml Vial IVP 4 mg Q6HR PRN Administration Nausea And Vomiting Sertraline HCl 200 mg 02/17/25 21:00 02/20/25 20:54 Sertraline 100 Mg Tab PO 200 mg HS EKTA Administration Tamsulosin HCl 0.4 mg 02/20/25 00:10 02/20/25 17:31 Tamsulosin 0.4 Mg Cap.Er.24h PO 0.4 mg PC-SUPPER EKTA Administration Trazodone HCl 100 mg 02/17/25 21:00 02/20/25 20:54 Trazodone Hcl 100 Mg Tab PO 100 mg HS EKTA Administration Objective - Vital Signs Vital signs: Vital Signs Temp 98.1 F 02/21/25 07:50 Pulse 62 02/21/25 07:50 Resp 16 02/21/25 07:50 BP 101/61 02/21/25 07:50 Pulse Ox 95 02/21/25 07:50 FiO2 Intake & Output 02/20/25 02/21/25 02/21/25 18:59 06:59 18:59 Intake Total 708 240 Output Total 1000 1350 680 Balance -292 1350 -440 Intake: Oral 708 240 Output: Urine 1000 1350 680 Other: Voiding Method Indwelling Catheter Indwelling Catheter Indwelling Catheter - Exam -GENERAL: The patient is alert and oriented x3, not in any acute distress. Well developed, well nourished. Obese HEENT: Pupils are round and equally reacting to light. EOMI. No scleral icterus. No conjunctival pallor. Normocephalic, atraumatic. No pharyngeal erythema. No thyromegaly. CARDIOVASCULAR: S1 and S2 present. No murmurs, rubs, or gallops. PULMONARY: Chest is clear to auscultation, no wheezing , no crackles. ABDOMEN: Soft, nontender, nondistended, normoactive bowel sounds. No palpable organomegaly. MUSCULOSKELETAL: No joint swelling or deformity. EXTREMITIES: No cyanosis, clubbing, or pedal edema. -NEUROLOGICAL: Cranial nerves are grossly intact. Left arm, left leg are weak. Numbness are absent. Meningeal signs labs SKIN: No rashes. no petechiae. - Labs CBC & Chem 7: 02/21/25 05:17 07/11/25 05:17 Labs: Abnormal Lab Results - Last 24 Hours (Table) 02/19/25 02/20/25 02/20/25 Range/Units 04:34 12:08 14:50 WBC (4.50-10.00) X 10*3/uL Hct (37.2-46.3) % Immature Gran # (0.00-0.04) X 10*3/uL Neutrophils # (1.80-7.70) X 10*3/uL Lymphocytes # (0.90-5.00) X 10*3/uL Eosinophils # (0.04-0.35) X 10*3/uL Carbon Dioxide (21.6-31.8) mmol/L Anion Gap (4.00-12.00) mmol/L BUN (9.0-27.0) mg/dL BUN/Creatinine Ratio (12.00-20.00) Ratio Glucose (70-110) mg/dL POC Glucose (mg/dL) 392 H (70-110) mg/dL Calcium (8.7-10.3) mg/dL Total Protein (6.2-8.2) g/dL Albumin (3.8-4.9) g/dL Methylmalonic Acid 0.45 H (<0.40) umol/L Urine Appearance Cloudy H (Clear) Urine Glucose (UA) 4+ H (Negative) Urine Blood Small H (Negative) Ur Leukocyte Esterase Trace H (Negative) Ur Squamous Epith Cells 20 H (0-4) /hpf Urine Bacteria Moderate H (None) /hpf Urine Mucus Rare H (None) /hpf 02/20/25 02/20/25 02/21/25 Range/Units 17:19 20:22 05:17 WBC 15.26 H (4.50-10.00) X 10*3/uL Hct 36.5 L (37.2-46.3) % Immature Gran # 0.07 H (0.00-0.04) X 10*3/uL Neutrophils # 14.28 H (1.80-7.70) X 10*3/uL Lymphocytes # 0.68 L (0.90-5.00) X 10*3/uL Eosinophils # 0.01 L (0.04-0.35) X 10*3/uL Carbon Dioxide (21.6-31.8) mmol/L Anion Gap (4.00-12.00) mmol/L BUN (9.0-27.0) mg/dL BUN/Creatinine Ratio (12.00-20.00) Ratio Glucose (70-110) mg/dL POC Glucose (mg/dL) 285 H 208 H (70-110) mg/dL Calcium (8.7-10.3) mg/dL Total Protein (6.2-8.2) g/dL Albumin (3.8-4.9) g/dL Methylmalonic Acid (<0.40) umol/L Urine Appearance (Clear) Urine Glucose (UA) (Negative) Urine Blood (Negative) Ur Leukocyte Esterase (Negative) Ur Squamous Epith Cells (0-4) /hpf Urine Bacteria (None) /hpf Urine Mucus (None) /hpf 02/21/25 02/21/25 Range/Units 05:17 06:36 WBC (4.50-10.00) X 10*3/uL Hct (37.2-46.3) % Immature Gran # (0.00-0.04) X 10*3/uL Neutrophils # (1.80-7.70) X 10*3/uL Lymphocytes # (0.90-5.00) X 10*3/uL Eosinophils # (0.04-0.35) X 10*3/uL Carbon Dioxide 20.0 L (21.6-31.8) mmol/L Anion Gap 13.00 H (4.00-12.00) mmol/L BUN 61.8 H (9.0-27.0) mg/dL BUN/Creatinine Ratio 77.25 H (12.00-20.00) Ratio Glucose 229 H (70-110) mg/dL POC Glucose (mg/dL) 220 H (70-110) mg/dL Calcium 7.5 L (8.7-10.3) mg/dL Total Protein 5.6 L (6.2-8.2) g/dL Albumin 3.7 L (3.8-4.9) g/dL Methylmalonic Acid (<0.40) umol/L Urine Appearance (Clear) Urine Glucose (UA) (Negative) Urine Blood (Negative) Ur Leukocyte Esterase (Negative) Ur Squamous Epith Cells (0-4) /hpf Urine Bacteria (None) /hpf Urine Mucus (None) /hpf Assessment and Plan Assessment: Acute left hemiparesis suspicious for acute stroke, MRI of the brain was neg ative for acute process as well MRI of the cervical and thoracic spine showing possible transverse myelitis at the cervicothoracic junction Central chest pain mild and improved Obesity with BMI of 32 Hypotension Diabetes mellitus Hyperlipidemia Hypothyroidism History of asthma History of depression anxiety Plan: Continue with IV Solu-Medrol per neurologist. Follow-up inflammatory marker Start aspirin 81 mg Continue with normal saline 100 mL/h. Status post boluses of normal saline. Monitor blood pressure. Hold losartan-hydrochlorothiazide. Also will repeat urine analysis and chest x-ray Control blood pressure. Continue monitoring insulin Neurology and cardiology team consult Labs and medication were reviewed.. Continue same treatment. Continue with symptomatic treatment. Resume home medication. Monitor labs and vitals. DVT and GI prophylaxis. Further recommendations as per clinical course of the patient DVT prophylaxis: Subcutaneous heparin GI Prophylaxis: Pepcid PT/OT: Pending Speech and swallow evaluation Prognosis is guarded
[2025-02-21 12:10] LABS: Glucose,Whole Blood 389 mg/dL (70-110)
[2025-02-21] MEDS: ENOXAPARIN 40 MG/0.4 ML SYRINGE SQ STA (12:49)
[2025-02-21 17:35] LABS: Glucose,Whole Blood 220 mg/dL (70-110)
[2025-02-21 19:40] LABS: Glucose,Whole Blood 250 mg/dL (70-110)
[2025-02-22 05:53] LABS: Glucose,Whole Blood 228 mg/dL (70-110)
[2025-02-22] MEDS: ENOXAPARIN 40 MG/0.4 ML SYRINGE SQ SCH (08:57)
--- NOTE | 2025-02-22 09:00 | P.PN ---
Subjective Progress Note Date: 02/21/25 Principal diagnosis: Patient seen and examined at bedside today. Multiple family members were present by the bedside. Patient is undergoing PT OT at this time. Patient able to sit with some support, but still she tends to fall over. Patient believes she is getting better. That was also indicated by the physical therapist. Patient states her arms proximally are stronger but hands are still weak. She noticed some movement of the right leg. Left leg continues to be flaccid. Review of systems: Pertinent positives and negatives mentioned in the HPI. Rest of 14 point review of systems is negative. Vitals, BP 91/56, SpO2 94% on room air WBC 14.79, BUN 69, creatinine 1.66, glucose 246, CRP <0.30, ESR 32 UA shows 4+ glucose Objective - Vital Signs Vital signs: Vital Signs Temp 98.1 F 02/21/25 07:50 Pulse 62 02/21/25 07:50 Resp 16 02/21/25 07:50 BP 101/61 02/21/25 07:50 Pulse Ox 95 02/21/25 07:50 FiO2 Intake & Output 02/20/25 02/21/25 02/21/25 18:59 06:59 18:59 Intake Total 708 240 Output Total 1000 1350 680 Balance -292 -1350 -440 Intake: Oral 708 240 Output: Urine 1000 1350 680 Other: Voiding Method Indwelling Catheter Indwelling Catheter - Exam General: no distress, lying in bed, No peripheral edema. Neuro: Patient is awake alert and oriented x 3. Visual harris are full to confrontation. Extraocular movements intact no nystagmus no facial weakness. Face is symmetric. Right eye blurry vision. Motor: There is no pronator drift in the upper limbs. The strength is (rig ht/left) deltoid 5/5, biceps 5/5, triceps 4/4, trials manager 1/1, patient is paraplegic. Patient has some trace movement of the right toe/ankle very inconsistently, which could be reflexive. Patient cannot curl her fingers to make a trials manager. Deep tendon reflexes are symmetric 2 at the biceps, 2 brachioradialis, 3 at the knees, 2 ankles and plantars are upgoing bilaterally. Sensory to touch is diminished bilaterally from toes all the way up to T4 level. Finger to nose testing normal on b/l UE, heel to pond test unable to perform bilaterally - Labs CBC & Chem 7: 02/21/25 05:17 02/21/25 05:17 Labs: Abnormal Lab Results - Last 24 Hours (Table) 02/19/25 02/20/25 02/20/25 Range/Units 04:34 12:08 14:50 WBC (4.50-10.00) X 10*3/uL Hct (37.2-46.3) % Immature Gran # (0.00-0.04) X 10*3/uL Neutrophils # (1.80-7.70) X 10*3/uL Lymphocytes # (0.90-5.00) X 10*3/uL Eosinophils # (0.04-0.35) X 10*3/uL Carbon Dioxide (21.6-31.8) mmol/L Anion Gap (4.00-12.00) mmol/L BUN (9.0-27.0) mg/dL BUN/Creatinine Ratio (12.00-20.00) Ratio Glucose (70-110) mg/dL POC Glucose (mg/dL) 392 H (70-110) mg/dL Calcium (8.7-10.3) mg/dL Total Protein (6.2-8.2) g/dL Albumin (3.8-4.9) g/dL Methylmalonic Acid 0.45 H (<0.40) umol/L Urine Appearance Cloudy H (Clear) Urine Glucose (UA) 4+ H (Negative) Urine Blood Small H (Negative) Ur Leukocyte Esterase Trace H (Negative) Ur Squamous Epith Cells 20 H (0-4) /hpf Urine Bacteria Moderate H (None) /hpf Urine Mucus Rare H (None) /hpf 02/20/25 02/20/25 02/21/25 Range/Units 17:19 20:22 05:17 WBC 15.26 H (4.50-10.00) X 10*3/uL Hct 36.5 L (37.2-46.3) % Immature Gran # 0.07 H (0.00-0.04) X 10*3/uL Neutrophils # 14.28 H (1.80-7.70) X 10*3/uL Lymphocytes # 0.68 L (0.90-5.00) X 10*3/uL Eosinophils # 0.01 L (0.04-0.35) X 10*3/uL Carbon Dioxide (21.6-31.8) mmol/L Anion Gap (4.00-12.00) mmol/L BUN (9.0-27.0) mg/dL BUN/Creatinine Ratio (12.00-20.00) Ratio Glucose (70-110) mg/dL POC Glucose (mg/dL) 285 H 208 H (70-110) mg/dL Calcium (8.7-10.3) mg/dL Total Protein (6.2-8.2) g/dL Albumin (3.8-4.9) g/dL Methylmalonic Acid (<0.40) umol/L Urine Appearance (Clear) Urine Glucose (UA) (Negative) Urine Blood (Negative) Ur Leukocyte Esterase (Negative) Ur Squamous Epith Cells (0-4) /hpf Urine Bacteria (None) /hpf Urine Mucus (None) /hpf 02/21/25 02/21/25 Range/Units 05:17 06:36 WBC (4.50-10.00) X 10*3/uL Hct (37.2-46.3) % Immature Gran # (0.00-0.04) X 10*3/uL Neutrophils # (1.80-7.70) X 10*3/uL Lymphocytes # (0.90-5.00) X 10*3/uL Eosinophils # (0.04-0.35) X 10*3/uL Carbon Dioxide 20.0 L (21.6-31.8) mmol/L Anion Gap 13.00 H (4.00-12.00) mmol/L BUN 61.8 H (9.0-27.0) mg/dL BUN/Creatinine Ratio 77.25 H (12.00-20.00) Ratio Glucose 229 H (70-110) mg/dL POC Glucose (mg/dL) 220 H (70-110) mg/dL Calcium 7.5 L (8.7-10.3) mg/dL Total Protein 5.6 L (6.2-8.2) g/dL Albumin 3.7 L (3.8-4.9) g/dL Methylmalonic Acid (<0.40) umol/L Urine Appearance (Clear) Urine Glucose (UA) (Negative) Urine Blood (Negative) Ur Leukocyte Esterase (Negative) Ur Squamous Epith Cells (0-4) /hpf Urine Bacteria (None) /hpf Urine Mucus (None) /hpf Assessment and Plan Assessment: Acute transverse myelitis with abnormal signal in the cord from C5 extending to T1. Exact cause is uncertain, but patient did suffer from COVID infection about a month ago, which may have triggered this abnormal immune response with transverse myelitis. Recent COVID infection Diabetes mellitus, not well-controlled Hypothyroidism, secondary to thyroidectomy due to cancer Hypertension History of tick bites Plan: Cervical/Thoracic spine MRI shows increased signal within the left aspect of the spinal cord at C5-T1, small portion of suspected transverse myelitis in the cervical thoracic junction is partially visualized within the left spinal cord, the remaining thoracic spinal cord appeared unremarkable Brain MRI shows no evidence of intracranial mass or acute/subacute infarct, moderate nonspecific white matter changes etiologies include small vessel ischemic disease, demyelinating disease, chronic migraines, vasculitis, Lyme disease. On my review, there is no evidence of any acute stroke. There is bilateral symmetric white matter disease seen. Carotid Doppler shows no hemodynamically significant stenosis bilaterally, subcentimeter nodular area inferior and lateral to the right carotid bifurcation may represent a lymph node. We will defer to IM to address the lymph node. Echocardiogram shows EF 55 to 60%, preserved LV size and function, no peric ardial effusion, very mild aortic stenosis, 2+ aortic regurgitation DERECK, Sjogren antibodies and Lyme testing negative CRP <0.30, ESR 32, creatinine kinase 201 Continue Solumedrol 1000 mg IVPB HS for total of 5 day Continue home med atorvastatin 80 mg p.o. daily Continue aspirin 81 mg p.o. daily. Discontinue Plavix. We will consider lumbar puncture, however cannot be performed as patient has received Plavix for 2 days. It can be done about 5 days after stopping Plavix. Glucose 183, A1c 8.2, ammonia <9, triglycerides 149, cholesterol 171, LDL 84.7, VLDL 29.8, HDL 56.5, vitamin B12 407, folate 16.5, TSH 0.165, free T4 1.98, vitamin B6 14, which is normal. Methylmalonic acid 0.45, which is elevated. We will start B12 injection. Recommend optimize control of diabetes to target A1c <7.0. Home meds Farxiga 10 mg p.o. daily and Hyzaar to each p.o. daily, levothyroxine 175 mcg p.o. daily resumed DVT prophylaxis : Enoxaparin 40 mg SQ daily
[2025-02-22] MEDS: CYANOCOBALAMIN 1,000 MCG/ML 1 ML VIAL IM SCH (09:23)
--- NOTE | 2025-02-22 12:18 | P.PN ---
Subjective Progress Note Date: 02/22/25 Principal diagnosis: Patient seen and examined at bedside today. Multiple family members were present including patient's parents, brother and [id number]. Patient feels like she is getting better. She notes improvement in her b/l UE, more than her LE. She still reports spasms in her LE. Vital signs are within normal limits Objective - Vital Signs Vital signs: Vital Signs Temp 98.2 F 02/22/25 07:30 Pulse 66 02/22/25 07:30 Resp 16 02/22/25 07:30 BP 128/62 02/22/25 07:30 Pulse Ox 95 02/22/25 07:30 FiO2 Intake & Output 02/21/25 02/22/25 02/22/25 18:59 06:59 18:59 Intake Total 480 Output Total 1760 1640 Balance -1280 -1640 Intake: Oral 480 Output: Urine 1760 1640 Other: Voiding Method Indwelling Catheter Indwelling Catheter - Exam General: no distress, lying in bed, No peripheral edema. Neuro: Patient is awake alert and oriented x 3. Visual harris are full to confrontation. Extraocular movements intact no nystagmus no facial weakness. Face is symmetric. Right eye blurry vision. Motor: There is no pronator drift in the upper limbs. The strength is (right/left) deltoid 5/5, biceps 5/5, triceps 5/5-4+, finger flexion 2/0, finger extension 4/0, wrist extension 5/5-, receptionist doctor's office 1/1, patient is paraplegic. Patient has some trace movement of the right toe/ankle very inconsistently, which is only reflexive, no purposeful movement noticed. Patient cannot curl her fingers to make a receptionist doctor's office. Deep tendon reflexes are symmetric 2 at the biceps, 2 brachioradialis, 3 at the knees, 2 ankles and plantars are upgoing bilaterally. Sensory to touch is diminished bilaterally from toes all the way up to T4 level. Finger to nose testing normal on b/l UE, heel to pond test unable to perform bilaterally - Labs CBC & Chem 7: 02/21/25 05:17 02/21/25 05:17 Labs: Abnormal Lab Results - Last 24 Hours (Table) 02/21/25 02/21/25 02/21/25 Range/Units 05:17 12:09 17:34 Carbon Dioxide 20.0 L (21.6-31.8) mmol/L Anion Gap 13.00 H (4.00-12.00) mmol/L BUN 61.8 H (9.0-27.0) mg/dL BUN/Creatinine Ratio 77.25 H (12.00-20.00) Ratio Glucose 229 H (70-110) mg/dL POC Glucose (mg/dL) 389 H 220 H (70-110) mg/dL Calcium 7.5 L (8.7-10.3) mg/dL Total Protein 5.6 L (6.2-8.2) g/dL Albumin 3.7 L (3.8-4.9) g/dL 02/21/25 02/22/25 Range/Units 19:39 05:51 Carbon Dioxide (21.6-31.8) mmol/L Anion Gap (4.00-12.00) mmol/L BUN (9.0-27.0) mg/dL BUN/Creatinine Ratio (12.00-20.00) Ratio Glucose (70-110) mg/dL POC Glucose (mg/dL) 250 H 228 H (70-110) mg/dL Calcium (8.7-10.3) mg/dL Total Protein (6.2-8.2) g/dL Albumin (3.8-4.9) g/dL Assessment and Plan Assessment: Acute transverse myelitis with abnormal signal in the cord from C5 extending to T1. Exact cause is uncertain, but patient did suffer from COVID infection about a month ago, which may have triggered this abnormal immune response with transverse myelitis. Recent COVID infection Diabetes mellitus, not well-controlled Hypothyroidism, secondary to thyroidectomy due to cancer Hypertension History of tick bites Plan: Cervical/Thoracic spine MRI shows increased signal within the left aspect of the spinal cord at C5-T1, small portion of suspected transverse myelitis in the cervical thoracic junction is partially visualized within the left spinal cord, the remaining thoracic spinal cord appeared unremarkable Brain MRI shows no evidence of intracranial mass or acute/subacute infarct, moderate nonspecific white matter changes etiologies include small vessel ischemic disease, demyelinating disease, chronic migraines, vasculitis, Lyme disease. On my review, there is no evidence of any acute stroke. There is alina ateral symmetric white matter disease seen. Carotid Doppler shows no hemodynamically significant stenosis bilaterally, subcentimeter nodular area inferior and lateral to the right carotid bifurcation may represent a lymph node. We will defer to IM to address the lymph node. Echocardiogram shows EF 55 to 60%, preserved LV size and function, no per icardial effusion, very mild aortic stenosis, 2+ aortic regurgitation Continue Solumedrol 1000 mg IVPB HS for total of 5 day. Today will be day #5 of the treatment. Her arms are improving proximally, but not much improvement in the receptionist doctor's office and no improvement in the legs. Patient has not responded well to high-dose corticosteroids. Patient to be transferred to higher level of care f or plasma exchange. Patient may need CT of the chest to rule out sarcoidosis, and some other blood tests including NMO, Anti-MOG antibodies. We will defer all these later workup to higher level of care. Patient's B12 is 407, but methylmalonic acid is elevated at 0.45, suggestive of B12 deficiency. Patient started on vitamin B12 1000 mcg IM daily Continue home med atorvastatin 80 mg p.o. daily Continue aspirin 81 mg p.o. daily. Discontinue Plavix. We will consider lumbar puncture, however cannot be performed as patient has received Plavix for 2 days. It can be done about 5 days after stopping Plavix. Glucose 183, A1c 8.2, ammonia <9, triglycerides 149, cholesterol 171, LDL 84.7, VLDL 29.8, HDL 56.5, vitamin B12 407, folate 16.5, TSH 0.165, free T4 1.98, vitamin B6 14, which is normal. Methylmalonic acid 0.45, which is elevated. DERECK, Sjogren antibodies and Lyme testing negative, CRP <0.30, ESR 32, creatinine kinase 201, MARCELINO 43 (8-52) Recommend optimize control of diabetes to target A1c <7.0. Home meds Farxiga 10 mg p.o. daily and Hyzaar to each p.o. daily, levothyroxine 175 mcg p.o. daily resumed DVT prophylaxis : Enoxaparin 40 mg SQ daily Dictation was produced using [employer] dictation software. please excuse any grammatical, word or spelling errors. Earnest Fishman MD PGY-2 IM I was present for the ibarra and critical components of this encounter and I personally examined the patient, as per documentation above and I agree with the assessment and plan that was modified by myself. Carli Maki MD
[2025-02-22 12:57] LABS: Glucose,Whole Blood 261 mg/dL (70-110)
[2025-02-22 17:36] LABS: Glucose,Whole Blood 332 mg/dL (70-110)
--- NOTE | 2025-02-22 19:09 | P.PN ---
Subjective This is a pleasant 62 years old female with past medical history of multiple medical problems as below. Patient states she could not walk and she has weakness in the left hand and she felt this morning. The symptoms has been going on for last 2 days. She states that she has left side weakness both arms and leg, her left arm more than her left leg. No tingling or numbness Headache or dizziness but complains from little pressure behind her left eye without change in vision She vomited once but no current more vomiting no abdominal pain or diarrhea. No dysuria or urgency. She had some chest pain in the middle going to the back felt like pressure nonspecific, currently gone now. No smoking alcohol or illicit drugs. She is no fever. Blood pressure stable. Labs including CBC, BMP, LFT and INR were unremarkable. Troponin x 2 were negative less than 0.012. EKG showing sinus rhythm at [address]-T changes. Chest x-ray showing no acute cardiopulmonary process. Reviewed chest x-ray by myself and agree. CT of the brain showing moderate nonspecific white matter changes which favor chronic small vessel ischemic changes. However acute/subacute stroke cannot be ruled out. Patient states she is not taking any blood thinners or aspirin at home. 02/18 Patient still has left hemiparesis Her left upper extremity is better still have weakness in the left hand has difficulty grabbing things, her left leg severely weak still the same as yesterday No other new complaint no headache or dizziness. Vitals and labs look stable Thyroid function looks normal Free T4 at 1.9. B12 is 407 and folate 16. Will have glucose controlled but we will start sliding scale, will lower the dose of her long-acting insulin 32 units and to have 16 units because we are not sure if patient will be able to eat today. We will monitor sugar and follow-up results Neurology service on the case She is on aspirin and Plavix Carotid duplex was unremarkable. Echocardiogram is pending 02/19 Patient complaining from weakness on the left side on admission today has been complaining from more weakness in the right leg and the right arm Also she has some pain in her shoulder area and neck area MRI of the brain was negative for acute process, because of her new symptoms MRI of the cervical thoracic spine showing possible transverse myelitis at the cervicothoracic junction. Patient was started on IV Solu-Medrol and inflammatory markers test were ordered. Patient will benefit from IPR upon discharge 02/20 Patient awake alert, still with bilateral extremity weakness. Differential diagnosis is transverse myelitis of the cervicothoracic junction area of the spinal cord. Patient followed closely by neurology service, started on IV fluids 1000 mg daily. Also today evaluated by orthopedic team they do not recommend any surgical intervention and continue with medical treatment for now Her blood pressure was low last night we have to give her 2 boluses of [address] her on normal saline 75 mL/h while holding her antihypertensive me dication losartan-hydrochlorothiazide. Her blood pressure improved but still on the low side. Creatinine went up to 1.6 most likely secondary hypertension. Another bolus given today and decrease fluid to 100 mL/day and will continue monitoring if no improvement or worsening then may consider nephrology consult Patient has evidence of leukocytosis most likely secondary to steroids. No other source of infection. Patient also is afebrile. ESR is 32. 02/21 Patient showed some improvement today as she is improving both upper limbs better than before for the first time today Also she feels more energetic, blood pressure improved 120/61. She remains on normal saline 100 mL/h. Creatinine went up to 1.6 yesterday came back to normal today at 0.8. Keep holding the diuretics including hydrochlorothiazide. She remains on IV Solu-Medrol for her transverse myelitis Her urine retention is secondary to transverses myelitis. Continue with Gutierrez catheter 02/22 Patient was very happy today because she could raise her both arms straight up above her head which is significant improvement for her. She still complains from some weakness in the lower extremity. She is complaining from constipation and requesting stronger laxative. Neurology service contacted me since there is no improvement in her lower extremities they recommended transfer to [facility] for higher level of care requiring plasmapheresis, immediately I contacted [facility] transfer center and the process of transfers was started. Once patient got accepted in bed become available we will send the patient right away. Objective - Vital Signs Vital signs: Vital Signs Temp 98.2 F 02/22/25 07:30 Pulse 66 02/22/25 07:30 Resp 16 02/22/25 07:30 BP 128/62 02/22/25 07:30 Pulse Ox 95 02/22/25 07:30 FiO2 Intake & Output 02/21/25 02/22/25 02/22/25 18:59 06:59 18:59 Intake Total 480 118 Output Total 1760 1640 Balance -1280 -1640 118 Intake: Oral 480 118 Output: Urine 1760 1640 Other: Voiding Method Indwelling Catheter Indwelling Catheter Indwelling Catheter - Exam -GENERAL: The patient is alert and oriented x3, not in any acute distress. Well developed, well nourished. Obese HEENT: Pupils are round and equally reacting to light. EOMI. No scleral icterus. No conjunctival pallor. Normocephalic, atraumatic. No pharyngeal erythema. No thyromegaly. CARDIOVASCULAR: S1 and S2 present. No murmurs, rubs, or gallops. PULMONARY: Chest is clear to auscultation, no wheezing , no crackles. ABDOMEN: Soft, nontender, nondistended, normoactive bowel sounds. No palpable organomegaly. MUSCULOSKELETAL: No joint swelling or deformity. EXTREMITIES: No cyanosis, clubbing, or pedal edema. -NEUROLOGICAL: Cranial nerves are grossly intact. Left arm, left leg are weak. Numbness are absent. Meningeal signs labs SKIN: No rashes. no petechiae. - Labs CBC & Chem 7: 02/21/25 05:17 02/21/25 05:17 Labs: Abnormal Lab Results - Last 24 Hours (Table) 02/21/25 02/21/25 02/22/25 Range/Units 17:34 19:39 05:51 POC Glucose (mg/dL) 220 H 250 H 228 H (70-110) mg/dL Assessment and Plan Assessment: Acute left hemiparesis suspicious for acute stroke, MRI of the brain was negative for acute process as well MRI of the cervical and thoracic spine showing possible transverse myelitis at the cervicothoracic junction Central chest pain mild and improved Obesity with BMI of 32 Hypotension Diabetes mellitus Hyperlipidemia Hypothyroidism History of asthma History of depression anxiety Plan: Patient will be required to be transferred to higher level of care for plasmapheresis. Neurology service recommended [facility] after they contacted Dr. Deleon the neurologist and he recommended the same. [facility] transfer center was contacted and the process of transfer was initiated. Mar chan will be transferred once she got accepted and bed become available Continue with IV Solu-Medrol per neurologist. Follow-up inflammatory marker Start aspirin 81 mg Continue with normal saline 100 mL/h. Status post boluses of normal saline. Monitor blood pressure. Hold losartan-hydrochlorothiazide. Also will repeat urine analysis and chest x-ray Control blood pressure. Continue monitoring insulin Neurology and cardiology team consult Labs and medication were reviewed.. Continue same treatment. Continue with symptomatic treatment. Resume home medication. Monitor labs and vitals. DVT a nd GI prophylaxis. Further recommendations as per clinical course of the patient DVT prophylaxis: Subcutaneous heparin GI Prophylaxis: Pepcid PT/OT: Pending Speech and swallow evaluation Prognosis is guarded
[2025-02-22 20:04] LABS: Glucose,Whole Blood 319 mg/dL (70-110)
[2025-02-22] MEDS: LACTULOSE 20 GM/30 ML CUP PO ONE (23:02)
[2025-02-23 01:34] VITALS: BP 115/71; PULSE 71; RESP 18; TEMP 98.4
--- NOTE | 2025-02-23 08:47 | P.DS ---
Providers Date of admission: 02/19/25 09:32 Attending physician: Nader Bryant MD Consults: 02/17/25 06:50 Consult Physician Routine Consulting Provider: [facility] Consult Reason/Comments: chest tightness/pain Do you want consulting provider notified?: Yes, Notify in am Consult Physician Routine Consulting Provider: Carli Maki Consult Reason/Comments: history of left sided weakness Do you want consulting provider notified?: Yes, Notify in am 02/17/25 22:05 Consult Physician Routine Consulting Provider: Mk Blandon Consult Reason/Comments: weakness, stroke Do you want consulting provider notified?: Yes, Notify in am 02/18/25 19:04 Consult Physician Urgent Consulting Provider: Bogdan Delaney Consult Reason/Comments: cervical pain, bilateral upper and lower ext parasthesias, acute Do you want consulting provider notified?: Yes 02/20/25 00:06 Consult Physician Routine Consulting Provider: Clark Briggs Consult Reason/Comments: urinary retention Do you want consulting provider notified?: Yes, Notify in am Primary care physician: Gabriella Tee Hospital Course: Patient got accepted by [facility] and she was transferred overnight for 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 Patient is stable to be transferred in guarded prognosis Please refer to progress note from 02/22 for more details Patient Condition at Discharge: Stable Plan - Discharge Summary Discharge Rx Participant: No New Discharge Prescriptions: No Action RX: metFORMIN HCL [Glucophage] 500 mg PO BID RX: Sertraline HCl [Zoloft] 200 mg PO HS RX: Dapagliflozin Propanediol [Farxiga] 10 mg PO DAILY RX: Acetaminophen [Tylenol Extra Strength] 1,000 mg PO Q6H PRN PRN Reason: Fever And/ Or Pain Losartan/Hydrochlorothiazide [Losartan-Hctz 100-25 mg Tab] 1 tab PO DAILY ALPRAZolam [Xanax] 0.5 mg PO BID PRN PRN Reason: Anxiety Meloxicam [Mobic] 15 mg PO DAILY Levothyroxine Sodium [Synthroid] 175 mcg PO DAILY Semaglutide [Ozempic] 2 mg SQ MO Insulin Degludec [Tresiba Flextouch U-200 Pen] 32 units SQ DAILY Cetirizine HCl [Zyrtec] 10 mg PO DAILY traZODone HCL [Desyrel] 100 mg PO HS Rosuvastatin Calcium [Crestor] 40 mg PO DAILY Calcium W/Vitamin D3 1800mg 1 tab PO DAILY Discharge Medication List RX: Acetaminophen [Tylenol Extra Strength] 1,000 mg PO Q6H PRN 02/15/17 [History] RX: Dapagliflozin Propanediol [Farxiga] 10 mg PO DAILY 02/15/17 [History] RX: Sertraline HCl [Zoloft] 200 mg PO HS 02/15/17 [History] RX: metFORMIN HCL [Glucophage] 500 mg PO BID 02/15/17 [History] ALPRAZolam [Xanax] 0.5 mg PO BID PRN 02/17/25 [History] Calcium W/Vitamin D3 1800mg 1 tab PO DAILY 02/17/25 [History] Cetirizine HCl [Zyrtec] 10 mg PO DAILY 02/17/25 [History] Insulin Degludec [Tresiba Flextouch U-200 Pen] 32 units SQ DAILY 02/17/25 [History] Levothyroxine Sodium [Synthroid] 175 mcg PO DAILY 02/17/25 [History] Losartan/Hydrochlorothiazide [Losartan-Hctz 100-25 mg Tab] 1 tab PO DAILY 02/17/25 [History] Meloxicam [Mobic] 15 mg PO DAILY 02/17/25 [History] Rosuvastatin Calcium [Crestor] 40 mg PO DAILY 02/17/25 [History] Semaglutide [Ozempic] 2 mg SQ MO 02/17/25 [History] traZODone HCL [Desyrel] 100 mg PO HS 02/17/25 [History] Follow up Appointment(s)/Referral(s): Rai Howe MD [STAFF PHYSICIAN] - 1 Week Gabriella Tee DO [Primary Care Provider] - 1-2 days Amor Cat PAC [PHYSICIAN [employer] WORKER] - As Needed (Patient may follow-up with Amor Cat PA-C or Dr. Reggie Delaney at [facility] on an as needed basis s following discharge. ) Discharge Disposition: OTHER INSTITUTION NOT DEFINED
--- NOTE | 2025-02-28 14:07 | CDI ---
Documentation Clarification Form Date: 02/28/2025 01:48:20 PM From: Debbie Rodriguez RN, CCDS Email: [email or web address] Admit Date: 02/19/2025 09:32:00 AM Patient Name: Meche Paul Visit Number: [id number] Discharge Date: 02/23/2025 01:53:00 AM ATTENTION: The Clinical Documentation Specialists (CDI) and [facility] Coding Staff appreciate your assistance in clarifying documentation. Please respond to the clarification below the line at the bottom and electronically sign. The CDI & [facility] Coding staff will review the response and follow-up if needed. Please note: Queries are made part of the Legal Health Record. If you have any questions, please contact the author of this message via ITS. Doctor Grover E Sheet The patient had elevated BUN/Cr level on 02/20. Based on this information and the findings below, is there an additional diagnosis that is clinically appropriate for this patient? Patient history/risk factors: Asthma, Ca, DM, GERD and MSK disorder. Presented with decreased strength and cramping to BLLE's. Admitted with transverse myelitis. Clinical Indicators: 02/17-02/21 BUN: 23-19.9-69-61.8 02/17-02/21 Cr: 0.75-1.0-1.66-0.8 02/20 IM: "Her blood pressure was low last night we have to give her 2 boluses of [address] her on normal saline 75 mL/h while holding her antihypertensive medication Losartan-Hydrochlorothiazide. Her blood pressure improved but still on the low side. Creatinine went up to 1.6 most likely secondary hypertension. Another bolus given today and decrease fluid to 100 mL/day and will continue monitoring if no improvement or worsening then may consider Nephrology consult." Treatment: 1L 0.9 NS IV bolus x2 on 02/19; 1L 0.9 NS IV bolus x1 on 02/20; hold Losartan 02/19 and 02/20 Is there an additional diagnosis that is clinically appropriate for this patient? [ x ] Acute Kidney Injury [ ] No additional diagnosis/Not clinically significant [ ] Unable to determine [ ] Other, please specify Reference: KDIGO TOMA Criteria An increase in serum creatinine by greater than or equal to 0.3 mg/dL within 48 hours; An increase in serum creatinine by greater than or equal to 1.5 times baseline, which is known or presumed to have occurred within the prior 7 days; A urine volume less than 0.5 ml/kg/h for 6 hours. When the baseline is unknown the lowest creatinine during admission assumed to be baseline (Template Last Revised: September 2022) MTDD
== END 2025-02-23 01:53 | disposition short-term general hospital (02) | DRG 98 ==
LOC: EC 04:51 → 6NMEDSUR 07:03 → OBSVTOIN 02-19 09:32
PROVIDERS: ADMIT Internal Medicine; ATTEND Internal Medicine
DX: G37.3 Acute transverse myelitis in demyelinating disease of central nervous system (principal); N17.9 Acute kidney failure, unspecified; E11.9 Type 2 diabetes mellitus without complications; G81.04 Flaccid hemiplegia affecting left nondominant side; F32.A Depression, unspecified; E66.9 Obesity, unspecified; J45.909 Unspecified asthma, uncomplicated; I10 Essential (primary) hypertension; E89.0 Postprocedural hypothyroidism; Z79.4 Long term (current) use of insulin; E78.5 Hyperlipidemia, unspecified; R32 Unspecified urinary incontinence; F41.9 Anxiety disorder, unspecified; R15.9 Full incontinence of feces; Z68.32 Body mass index [BMI] 32.0-32.9, adult; M50.323 Other cervical disc degeneration at C6-C7 level; M50.322 Other cervical disc degeneration at C5-C6 level; K21.9 Gastro-esophageal reflux disease without esophagitis; Z79.1 Long term (current) use of non-steroidal anti-inflammatories (NSAID); Z79.84 Long term (current) use of oral hypoglycemic drugs; Z79.890 Hormone replacement therapy; Z79.899 Other long term (current) drug therapy; Z85.850 Personal history of malignant neoplasm of thyroid; Z85.3 Personal history of malignant neoplasm of breast
CPT/HCPCS: 36415; 70450; 70551; 71045; 71046; 72156; 72157; 80048; 80053; 80061; 80076; 81001; 81003; 82140; 82164; 82550; 82607; 82746; 83036; 83921; 84145; 84207; 84439; 84443; 84484; 85025; 85610; 85652; 85730; 86038; 86140; 86235; 86618; 93005; 93306; 93880; 99285